=== PATIENT | female | born 1950 | race Caucasian/White ===

== ENCOUNTER 2020-06-08 10:41 | Outpatient (CLI) | payer MEDICARE, MEDICAID, SELFPAY ==
--- NOTE | 2020-06-08 10:50 | CT_ITS ---
WS: [id number] LDCT LUNG CANCER SCREENING TECHNIQUE: Noncontrast CT of the chest with coronal and sagittal reformatted images. CLINICAL INFORMATION: NICOTINE DEPENDENCE,CIGARETTES COMPARISON: None. DLP: 78.16 mGy.cm DIvol: 2.[address] scans at [facility] use at least one of these dose optimization techniques: automat ed exposure control; mA and/or kV adjustment per patient size (includes targeted exams where dose is matched to clinical indication); or iterative reconstruction. FINDINGS: Mild chronic emphysematous changes. No acute pulmonary infiltrates. Coronary calcification. No medias tinal or hilar lymphadenopathy. No suspicious pulmonary parenchymal opacities. Calcific granulomas. No axillary lymphadenopathy. Aort ic vascular calcification. Adrenal glands are normal. Cholecystectomy clips. Mild thoracic kyphosis. Chronic anterior wedging in the mid thoracic spine. CT/CT lung screening [id number] IMPRESSION: LUNG-RADS: 1-Negative FOLLOW UP: 12 Month: Continue annual screening with LDCT
== END 2020-06-08 10:42 | disposition home or self-care (01) ==
LOC: CT 10:42
PROVIDERS: PCP Family Medicine; Visit Provider Family Medicine
DX: Z12.2 Encounter for screening for malignant neoplasm of respiratory organs (principal); F17.210 Nicotine dependence, cigarettes, uncomplicated
CPT/HCPCS: G0297

== ENCOUNTER 2020-07-19 09:40 | Outpatient (CLI) | payer MEDICARE, MEDICAID, SELFPAY ==
--- NOTE | 2020-07-19 09:46 | MM_ITS ---
WS: [id number] BILATERAL SCREENING DIGITAL MAMMOGRAM WITH CAD HISTORY: SCREENING COMPARISON: 06/07/2019, 05/20/2018 Bilateral CC and MLO views submitted. Computer aided detection analyzed. Breast composition: The breasts are heterogeneously dense, which may obscure small masses. No suspici ous masses, microcalcifications or architectural distortion. Asymmetric densities noted bilaterally w ith benign stable calcifications. MM/[id number] IMPRESSION: BI-RADS: 2-Benign FOLLOW UP: 1 Year Follow-up
== END 2020-07-19 09:41 | disposition home or self-care (01) ==
LOC: RADSHAW 09:45
PROVIDERS: PCP Family Medicine; Visit Provider Family Medicine
DX: Z12.31 Encounter for screening mammogram for malignant neoplasm of breast (principal)
CPT/HCPCS: 77067

== ENCOUNTER 2021-07-08 09:07 | Outpatient (CLI) | payer MEDICARE, MEDICAID, SELFPAY ==
--- NOTE | 2021-07-08 09:16 | CT_ITS ---
WS: [id number] LDCT LUNG CANCER SCREENING HISTORY: NICOTINE Dependence, cigarettes TECHNIQUE: Axial imaging performed from the apices to 1 cm below the costophrenic angles. Coronal and sagittal reformats are submitted with axial MIP series. All CT scans at [facility] use at least one of these dose optimization techniques: automated exposure control; mA and/or kV adjustment per patient size (includes targeted exams where dose is matched to clinical indication); or iterativ e reconstruction. DLP: 46.67 mGy.cm DIvol: 1.58 mGy COMPARISON: 06/08/2020 Diagnostic quality: Satisfactory Lung Nodules: Ill-defined soft tissue mass centered within the LEFT upper lobe extending into the AP window. Mass measures over length of 4.8 cm x 3.6 x 3.8 cm. Due to its position of the mediastinum th e margins are very difficult to visualize. Mass extends along the aorta with partial obliteration of the adjacent fat plane. Lungs: Marked emphysema. Bilateral lower lobe calcified granulomata. Heart: Mildly enlarged heart with coronary artery calcifications. Other findings: Extensive atherosclerosis aorta. No adrenal mass is visualized. The entire adrenal gl ands are not included. Splenic granulomata. Increase in thoracic kyphosis. CT/CT lung screening [id number] IMPRESSION: LUNG-RADS: 4B-Suspicious FOLLOW UP: PET/CT recommended Highly recommend PET/CT and contrast-enhanced chest CT at this time. There is a mass centered in the LEFT upper lobe at the AP window. Margins are difficult t o visualize and further evaluation and characterization and evaluation for lym ph nodes should be obtained. OTHER FINDINGS (S MODIFIER): None.
== END 2021-07-08 09:08 | disposition home or self-care (01) ==
LOC: CT 09:08
PROVIDERS: PCP Family Medicine; Visit Provider Family Medicine
DX: Z12.2 Encounter for screening for malignant neoplasm of respiratory organs (principal); F17.210 Nicotine dependence, cigarettes, uncomplicated; I70.0 Atherosclerosis of aorta
CPT/HCPCS: 71271

== ENCOUNTER → 2021-07-11 16:20 | Outpatient (BNVA) | payer MEDICARE, MEDICAID, SELFPAY | PROVIDERS: PCP Family Medicine; Visit Provider Internal Medicine Critical Care Medicine | DX: Z20.822 Contact with and (suspected) exposure to COVID-19 (principal); R91.8 Other nonspecific abnormal finding of lung field | CPT/HCPCS: 87635 ==

== ENCOUNTER 2021-07-16 11:44 | Day surgery (SDC) | payer MEDICARE, MEDICAID, SELFPAY ==
[2021-07-16] VITALS (7 sets, daily range): BP systolic 137–173; BP diastolic 53–97; PULSE 67–75; RESP 18; TEMP 36.1–36.8; O2SAT 90–99; BMI 23.6
--- NOTE | 2021-07-16 | CT_ITS ---
Guided Bronchoscopy Planning CT images; total exam DLP: 627.71 mGy-cm MTDD
--- NOTE | 2021-07-16 12:32 | ANES.PREANE2 ---
Pre-Anesthetic Assessment Pre-Anesthetic Assessment: Height/Weight: Height 1.55 m Preop Diagnosis: Lung cancer Proposed Procedure: Operation Date: 07/16/21 13:10 Proposed Procedures melissa Castillo [id number] R91.1(Not Applicable) - Walt Aranda MD s Ebus(Not Applicable) - Walt Aranda MD Familial anesthetic complications: None Was Beta Turner taken within 24 hours: N/A Was Clonidine taken within 24 hours: N/A Last intake: > 8hrs Social: Social History: Tobacco and No alcohol Exam: Pre-Anes Outpt Exam: alert, oriented x 3, clear to auscultation bilaterally and regular rate & rhythm Airway: Cervical ROM: WNL MP: 2 Dentition: False Pulmonary: Pulmonary: COPD GI: GI: GERD Metabolic: Metabolic: Hyperlipidemia Anesthetic Plan: ASA status: 3 Anesthesia: General Risk of > 500 ml blood loss (7ml/kg in children): No PFSH Anesthesia PFSH: Medical History (Updated 07/11/21 @ 16:22 by Walt Aranda MD) COPD (chronic obstructive pulmonary disease) Fibromyalgia GERD (gastroesophageal reflux disease) Hypercholesteremia Lung mass Nicotine dependence, cigarettes, uncomplicated Overactive bladder Surgical History (Updated 07/11/21 @ 16:17 by Walt Aranda MD) H/O lumpectomy History of cholecystectomy History of hysterectomy Hx of tonsillectomy Family History Brother Cancer Lung Mother Hypertension Father Heart disease Social History Smoking and tobacco status: current every day smoker cigarettes Packs smoked per day: 1 Years cigarettes smoked: 50 Second hand smoke exposure: Yes Smoking risk assessment/counseling performed?: No Alcohol intake: current Alcohol intake frequency: holidays/special occasions only Counseling given: No Counseling given: No Lives independently: Yes Household members: none Marital status: Current occupational status: retired History of recent travel: No Current gender identity: Female Data Anesthesia Cardiac Studies: No Data to Display
[2021-07-16] MEDS: sodium chloride 0.9% 1,000 ML 30 ML IV (12:47)
--- NOTE | 2021-07-16 13:33 | W.PM.OPSUD ---
Surgery/Procedure H&P Update DATE OF PROCEDURE: July 16, 2021 DATE H&P PERFORMED: 07/11/21 H&P UPDATE INFORMATION: I have reviewed H&P completed within last 30 days, I have examined patient prior to procedure and No changes to prior documentation PREOP DIAGNOSIS: Lung cancer PLANNED PROCEDURE: Bronchoscopy with inspection of the airway, possible endobronchial biopsy, bronchoalveolar lavage, Cytobrush, navigational bronchoscopy guided fine needle aspiration of the lung mass, Cytobrush, endobronchial transbronchial biopsies, endobronchial sound guided transbronchial needle aspiration of lymph nodes and control of bleeding. Operation Date: 07/16/21 13:10 Proposed Procedures p [place] [id number] R91.1(Not Applicable) - Walt Aranda MD s Ebus(Not Applicable) - Walt Aranda MD
[2021-07-16] MEDS: lidocaine 1% INJ 20 mL XX (13:50)
--- NOTE | 2021-07-16 15:34 | ANE.PACU2 ---
Inpatient post-anesthesia follow up: Airway intact: Yes Vital signs: Temperature 97.0 F Pulse Rate 72 Respiratory Rate 18 Blood Pressure 137/56 Pulse Oximetry 90 Oxygen Delivery Me thod Room Air Oxygen Flow Rate 10 Fraction of Inspir ed Oxygen Hydration adequate: Yes Nausea and vomiting: No Pain level: 2 Mental status: Baseline
--- NOTE | 2021-07-16 15:36 | P.OP_ITS ---
Operative Report Date of procedure: July 16, 2021 Pre-op Diagnosis: Lung cancer Post-op diagnosis: same Brief History: This is 71-year-old lady with metastatic lung mass coming in for bronchoscopic evaluation. Procedure: Name of the procedure: Bronchoscopy with inspection of the airway, possible bronchoalveolar lavage, endobronchial biopsies, transbronchial biopsies, endobronchial ultrasound-guided transbronchial needle aspiration of lymph nodes and control of bleeding. Indication: Suspected lung cancer Anesthesia: General anesthesia. Local anesthesia: The nick in the right and left mainstem bronchi were anesthetized with 1% lidocaine, 3 mL. Description of the procedure: The procedure was explained to the patient and the consent was obtained. The patient was brought to the OR. The patient underwent endotracheal intubation for general anesthesia. Following induction of general anesthesia, the bronchoscope was advanced through the ET tube. The lower trachea appeared to be normal. The nick was sharp. The nick, the right and left mainstem bronchi are anesthetized with 1% lidocaine. In a systematic manner bilateral bronchial tree was then examined. The bronchoscope was advanced into the left mainstem bronchus. The left upper lobe, lingula and left lower lobe bronchi were examined up to the third subsegmental level and no abnormalities were identified. The bronchoscope was then introduced into the right mainstem bronchus. The right upper lobe, right middle lobe and right lower lobe bronchi were examined up to the third subsegmental level and no abnormalities were identified. Using navigational bronchoscopy fine-needle aspiration was attempted from the left mediastinal lung mass however this was unsuccessful. The endobronchial ultrasound was introduced through the ET tube. Left hilar lung mass was identified. The mass appeared necrotic. The subcarinal lymph node appeared to be enlarged. There is no significant paratracheal lymph adenopathy Transbronchial needle aspiration was performed from station 4R, 7, left hilar lung mass. Samples: 1. The transbronchial needle aspiration of the aforementioned lymph node groups were sent for cytology and histopathology. Complications: There was no immediate complications.
== END 2021-07-16 16:05 | disposition home or self-care (01) ==
PROVIDERS: PCP Family Medicine; Visit Provider Internal Medicine Critical Care Medicine
PROC: 0BJ08ZZ Inspection of Tracheobronchial Tree, Via Natural or Artificial Opening Endoscopic (ICD-10-PCS; CPT 31622; principal; 2021-07-16 13:00)
PROC: BB4BZZZ Ultrasonography of Pleura (ICD-10-PCS; 2021-07-16 13:00)
DX: C34.90 Malignant neoplasm of unspecified part of unspecified bronchus or lung (principal); J44.9 Chronic obstructive pulmonary disease, unspecified; K21.9 Gastro-esophageal reflux disease without esophagitis; E78.5 Hyperlipidemia, unspecified; M79.7 Fibromyalgia; E78.00 Pure hypercholesterolemia, unspecified; F17.210 Nicotine dependence, cigarettes, uncomplicated
CPT/HCPCS: 31622; 31627; 31653; 77011; 80500; 88305; 96360; 96361; J2704; J2710; J3010; J3490; J7030

== ENCOUNTER 2021-07-22 09:07 | Outpatient (CLI) | payer MEDICARE, MEDICAID, SELFPAY ==
--- NOTE | 2021-07-22 09:13 | MM_ITS ---
WS: [id number] BILATERAL DIGITAL SCREENING MAMMOGRAPHY WITH CAD CLINICAL INFORMATION: SCREENING HISTORY: Screening mammogram. No current complaints. COMPARISON: July 19, 2020 TECHNIQUE: Bilateral CC and MLO views. FINDINGS: The breasts are composed of heterogeneous fibroglandular density tissue, which can limit the detectio n of small underlying mass lesions. Stable clustered, punctate and lucent centered calcifications jannette ateral breasts. Dystrophic calcifications left breast are stable. Vascular calcification. No suspicio us mass, asymmetry, calcifications, or architectural distortion. No evidence of malignancy. MM/[id number] IMPRESSION: BI-RADS: 2-Benign FOLLOW UP: 1 Year Follow-up Recommend return to annual screening mammography.
== END 2021-07-22 09:08 | disposition home or self-care (01) ==
LOC: RADSHAW 09:12
PROVIDERS: PCP Family Medicine; Visit Provider Family Medicine
DX: Z12.31 Encounter for screening mammogram for malignant neoplasm of breast (principal)
CPT/HCPCS: 77067

== ENCOUNTER → 2021-09-04 10:21 | Outpatient (BNVA) | payer MEDICARE, MEDICAID, SELFPAY | PROVIDERS: PCP Family Medicine; Visit Provider Thoracic Surgery (Cardiothoracic Vascular Surgery) | DX: Z20.822 Contact with and (suspected) exposure to COVID-19 (principal); R91.8 Other nonspecific abnormal finding of lung field | CPT/HCPCS: 87635 ==

== ENCOUNTER 2021-09-09 12:45 | Inpatient (IN) | payer MEDICARE, MEDICAID, SELFPAY ==
--- NOTE | 2021-09-04 08:37 | ECG_ITS ---
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 Measurements Intervals [place] Rate: 64 P: 61 KS: 163 QRS: 32 QRSD: 81 T: 69 QT: 419 QTc: 433 Interpretive Statements SINUS RHYTHM WITH SINUS ARRHYTHMIA POSSIBLE INFERIOR MYOCARDIAL INFARCTION , OF INDETERMINATE AGE [30 ms Q WAVE IN II/aVF] No previous ECG available for comparison Electronically Signed On 09-05-2021 1:27:01 CDT by Xuan Child M.D. [id number]
[2021-09-04 08:40] VITALS: BMI 23.6
--- NOTE | 2021-09-04 09:13 | ANES.PREANE2 ---
Pre-Anesthetic Assessment Pre-Anesthetic Assessment: Height/Weight: Height 1.55 m Weight 56.699 kg Preop Diagnosis: Lung cancer Proposed Procedure: Operation Date: 09/09/21 13:25 Proposed Procedures p [place] Mediastinoscopy(Not Applicable) - Wallace Lugo MD Was Beta Turner taken within 24 hours: N/A Was Clonidine taken within 24 hours: N/A Social: Social History: Tobacco and No alcohol Exam: Pre-Anes Outpt Exam: alert, oriented x 3 and regular rate & rhythm Additional Exam Findings (including area of procedure): rhonchi Airway: Submandibular: WNL Cervical ROM: WNL MP: 2 Dentition: False Pulmonary: Pulmonary: COPD Comments: lung mass CV/HEM: CV/HEM: HTN GI: GI: GERD Metabolic: Metabolic: Hyperlipidemia Musc/skel: Musc/skel: Fibromyalgia Anesthetic Plan: ASA status: 3 Anesthesia: General Other: A.line Risk of > 500 ml blood loss (7ml/kg in children): No PFSH Anesthesia PFSH: Medical History COPD (chronic obstructive pulmonary disease) Fibromyalgia GERD (gastroesophageal reflux disease) Hypercholesteremia Lung mass Nicotine dependence, cigarettes, uncomplicated Overactive bladder Surgical History H/O lumpectomy History of cholecystectomy History of hysterectomy Hx of tonsillectomy Family History Brother Cancer Lung Mother Hypertension Father Heart disease Social History Second hand smoke exposure: Yes Smoking risk assessment/counseling performed?: No Alcohol intake: current Alcohol intake frequency: holidays/special occasions only Counseling given: No Counseling given: No Lives independently: Yes Household members: none Marital status: Current occupational status: retired History of recent travel: No Current gender identity: Female Data Anesthesia Cardiac Studies: No Data to Display
[2021-09-04 09:19] LABS: Add Urine Microscopic? NO; Charge for UA Resulting for Rev
[2021-09-04 09:21] LABS: Basophils # 0.1 10^3/uL (0.0-0.1); Basophils % 0.7 %; Eosinophils # 0.4 10^3/uL (0.0-0.8); Eosinophils % 5.3 %; Hematocrit 45.7 % (37.0-47.0); Hemoglobin 14.7 g/dL (11.5-15.3); Mean Corpuscular HGB Conc 32.2 g/dL (30.0-36.0); Mean Corpuscular Hemoglobin 29.1 pg (28.0-34.0); Mean Corpuscular Volume 90.5 fl (81-99); Monocytes # 0.5 10^3/uL (0.2-0.9); Monocytes % 5.6 %; Neutrophils # 5.24 10^3/uL (1.8-7.7); Neutrophils % 64.2 %; Nucleated Red Blood Cells % 0 %; Platelet Count 326 10^3/cmm (130-400); Red Blood Count 5.05 10^6/uL (4.1-5.3); White Blood Count 8.2 10^3/uL (4.0-10.0)
[2021-09-04 09:56] LABS: Bilirubin Urine Neg (Negative); Blood Urine Neg (Negative); Glucose Urine UA Norm (Normal); Ketones Urine Negative (Negative); Leukocyte Esterase Urine Negative (Negative); Nitrate Urine Negative (Negative); Protein Urine Neg (Negative); Specific Gravity, Urine 1.005 (1.005-1.030); Urine Appearance Clear (CLEAR); Urine Color Straw (Yellow); Urobilinogen Urine Norm (Negative); pH Urine 6 (5-7)
[2021-09-04 09:59] LABS: Anion Gap 14.9 (5-19); Blood Urea Nitrogen 8 mg/dL (8-23); Calcium 9.3 mg/dL (8.5-10.5); Carbon Dioxide 26 mmol/L (22-29); Chloride 106 mmol/L (98-107); Glomerular Filtration Rate 98.8 mL/min (90-130); Glucose 99 mg/dL (65-115); Osmolality Calculated 294 mOsm/kg (285-295); Potassium 3.9 mmol/L (3.5-5.1); Sodium 143 mmol/L (136-145)
[2021-09-09] VITALS (23 sets, daily range): BP systolic 117–191; BP diastolic 56–103; PULSE 67–107; RESP 16–24; TEMP 36.6–36.8; O2SAT 93–98
[2021-09-09] MEDS: sodium chloride 0.9% 1,000 ML 30 ML IV (12:57)
--- NOTE | 2021-09-09 13:17 | W.PM.OPSUD ---
Surgery/Procedure H&P Update DATE OF PROCEDURE: September 09, 2021 DATE H&P PERFORMED: 08/22/21 H&P UPDATE INFORMATION: I have reviewed H&P completed within last 30 days, I have examined patient prior to procedure and No changes to prior documentation PREOP DIAGNOSIS: Lung mass/ AP window mass PLANNED PROCEDURE: Operation Date: 09/09/21 14:35 Proposed Procedures p [place] Mediastinoscopy(Not Applicable) - Wallace Lugo MD
--- NOTE | 2021-09-09 13:34 | P.ANESUD_ITS ---
Pre-Anesthetic Update Pre-Anesthetic Assessment: Date of Surgery/Procedure: 09/09/21 Preop Deborah gnosis: Lung mass/ AP window mass Proposed Procedure: Operation Date: 09/09/21 14:35 Proposed Procedures p [place] Mediastinoscopy(Not Applicable) - Wallace Lugo MD Any changes to Pre-Anesthetic Assessment?: No Last Intake: Intake Last Liquid Date 09/09/21 Last Liquid Time 08:00 Last Solid Date 09/08/21 Vitals: Temperature 98.3 F 09/09/21 12:49 Pulse Rate 72 09/09/21 12:49 Respiratory Rate 18 09/09/21 12:49 Blood Pressure 157/88 09/09/21 12:49 Blood Pressure Lidia n 111 09/09/21 12:49 Pulse Oximetry 98 09/09/21 12:49 Oxygen Delivery Me thod 09/09/21 12:50 Exam: Pre-Anes Outpt Exam: alert, oriented x 3, clear to auscultation bilaterally and regular rate & rhythm Cardiac Studies: No Data to Display
[2021-09-09] MEDS: vancomycin 1,000 MG SDV 1000 MG IRRIGATION (14:45)
[2021-09-09] MEDS: fentaNYL 50 mcg/mL INJ 2mL IVP (16:10)
--- NOTE | 2021-09-09 16:19 | P.OP_ITS ---
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 Condition: stable Disposition: floor Brief History: Ms. Alfaro is a 71-year-old female referred to our service for surgical biopsy of the left AP window mass. She has a long history for tobacco use. This mass was originally notified on lung cancer screening protocol. She initially underwent endoscopy along with navigational bronchoscopy and EBUS by Dr. Aranda, though unfortunately pathology was inconclusive. She was then referred to our service where I recommended a left-sided [place] procedure. Rationale was carefully discussed. Proper consents were reviewed and signed. Procedure: Ms. Alfaro was placed in supine position and underwent general endotracheal anesthesia. The entire chest was sterilely prepped and draped. A left parasternal incision was made extending over the second and third ribs at the intercostal junction with the sternum. Dissection was continued down through the to the perichondrium of the ribs. The third rib was dissected free anteriorly and posteriorly at this junction. The rib was subsequently divided and a small section anteriorly was removed. The left internal mammary artery and vein were dissected free and clipped and divided and removed from the field. Sharp and blunt dissection was carried down through periaortic adipose tissue until the mass was encountered. There were adhesions of the lung tissue over much of the mass along with encroachment onto the left phrenic nerve. It was aspirated several times and then multiple incisional biopsies were taken. These were sent to pathology for both frozen and permanent section. Hemostasis was then confirmed using cautery and Surgicel. Once completed, retractors were removed. Sponge and needle count was correct. Wound was closed with 2-0 Vicryl suture in 2 layers and the skin was reapproximated in a subcuticular fashion utilizing 4-0 Monocryl suture. Sterile dressings were applied. Dominic has equal breath sounds bilaterally and was extubated and taken to the postoperative care unit where a chest x-ray is pending. We counseled with a family friend by phone at the completion of the procedure. Initial pathologic impression upon review of frozen section consistent with malignancy though this does appear to have characteristics which may favor sarcoma. Further diagnostic evaluation pending.
[2021-09-09] MEDS: morphine 4 mg/mL SDV 1 mL 2 MG IVP ×3 (16:24→19:01)
[2021-09-09] MEDS: ondansetron 2 mg/ML SDV 2 mL 4 MG IVP (17:04)
[2021-09-09] MEDS: lactated ringers 1,000 ML 75 ML IV (18:47)
[2021-09-09] MEDS: ketorolac 30 mg/mL INJ IVP (18:48)
--- NOTE | 2021-09-09 18:54 | ANE.PACU2 ---
Inpatient post-anesthesia follow up: Airway intact: Yes Vital signs: Temperature 97.8 F Pulse Rate 75 Respiratory Rate 18 Blood Pressure 145/72 Pulse Oximetry 94 Oxygen Delivery Me thod Nasal Cannula Oxygen Flow Rate 2 Fraction of Inspir ed Oxygen Hydration adequate: Yes Nausea and vomiting: No Pain level: 2 Mental status: Baseline
--- NOTE | 2021-09-09 19:04 | PC.NURSE ---
notified Dr Lugo patient has blood pressure of 191/103 and anxiety. card writer hand put orders in.
[2021-09-09] MEDS: LORazepam 2 mg/mL INJ 1 mL 1 MG IVP (20:14)
[2021-09-10] VITALS (7 sets, daily range): BP systolic 127–161; BP diastolic 69–79; PULSE 68–89; RESP 15–17; TEMP 36.6–37.2; O2SAT 86–96
[2021-09-10] MEDS: ketorolac 30 mg/mL INJ IVP (05:52)
[2021-09-10] MEDS: lactated ringers 1,000 ML 75 ML IV (05:53)
--- NOTE | 2021-09-10 06:27 | P.PN_ITS ---
Subjective Subjective: Interval history: Stop day #1 status post left-sided [place] procedure. Ms. Alfaro had an uneventful night. Postoperative discomfort appears to be under good control. She is eager for discharge. Vitals/I&O/Wt Last Vital Signs Temp 97.9 F 09/10/21 05:00 Pulse 73 09/10/21 05:00 Resp 15 09/10/21 05:00 BP 158/79 09/10/21 05:00 Pulse Ox 95 09/10/21 05:00 09/09/21 09/09/21 09/10/21 14:59 22:59 06:59 Intake Total 60 / 60 1043.5 / 1103.5 Output Total 375 / 375 550 / 925 Balance -315 / -315 493.5 / 178.5 Physical Exam Chest: COMMONS NORMALS: normal palpation of entire chest wall OTHER: Swell stable. Surgical dressing in place. Resp: COMMON NORMALS: normal respiratory effort, No use of accessory muscles and clear to auscultation bilaterally AUSCULTATION: clear to auscultation jannette aterally Cardio: COMMON NORMALS: regular rate, regular rhythm, S1 normal heart sound present, No murmurs present (Cardio) and No rub (Cardio) RATE: regular rate RHYTHM: regular rhythm HEART SOUNDS: S1 normal heart sound present Data : 09/04/21 08:50 09/04/21 08:50 A&P Assessment and plan (1) Lung mass: POD #1 status post left-sided [place] procedure. Final pathology pen ding. Preliminary report is consistent with malignancy Plan: Will discharge to home with scheduled follow-up at [facility] 1 week. 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
--- NOTE | 2021-09-10 06:34 | PM.DCS ---
Discharge Providers Date of Admission: 09/09/21 12:45 Date of Discharge: September 10, 2021 Attending Provider at Admission: Wallace Lugo MD Attending Provider at Discharge: Wallace Lugo MD Primary Care Provider: Ash Portillo MD Diagnoses at Discharge Discharge Diagnosis (1) Lung mass: Status: Acute Reason for Visit Reason for Visit: Lung Mass Hospital Course Hospital Course Ms. Alfaro is a very pleasant 71-year-old female who was found to have a large AP window mass and mediastinal and left hilar adenopathy on lung CT screening protocol. He was evaluated by Dr. Aranda, and underwent bronchoscopy along with a EBUS and navigational bronchoscopy. Pathology was uncertain as to malignancy, therefore she was referred to our service. She was electively admitted yesterday and underwent left sided [place] procedure and biopsy of the AP window mass. Final pathology is pending. Frozen section reported is consistent with malignancy though the exact cell type is uncertain and may be sarcomatous. Postoperatively, she convalesced on the medical/surgical [place] where she has done well. Postop discomfort has been under good control. Vital signs remained stable. She did fail a 6-minute walk test and therefore qualifies for home O2 at 2 L nasal cannula. She does have some mild wheezing. Subcutaneous emphysema was noted on morning chest x-ray and follow-up x-ray at 12 noon reveals no change. This is most probably related to biopsy of the AP window mass which was done intrathoracic leak through a [place] procedure. She will be discharged to home today in stable condition with scheduled follow-up in my clinic in 1 week and with limited activity for the next 3 weeks. We will be contacting her at home this evening to confirm that home oxygen has been established that her O2 saturations are adequate. She states she will be receiving a nebulizer treatment at home. We will confirm that she is having no breathing difficulties. Physical Exam Chest: COMMONS NORMALS: negative for normal palpation of entire chest wall CHEST: Yes Symmetrical chest wall rise OTHER: There is a small amount of subcutaneous emphysema noted on the anterior lateral chest wall as well as base of the right neck. Chest x-ray at 7:15 AM revealed complete lung expansion bilaterally with percutaneous emphysema at the base of the right neck as well as the left chest wall. She is asymptomatic from this. Mild dyspnea which she states is frequently baseline. Resp: COMMON NORMALS: normal respiratory effort, No retractions, No use of accessory muscles and clear to auscultation bilaterally (There is a light basilar wheeze posteriorly on the left) EFFORT & INSPECTION: Yes able to speak in complete sentences and Yes symmetric chest movement AUSCULTATION: clear to auscultation bilaterally (There is a light basilar wheeze posteriorly on the left) and wheezes (Light, posteriorly on the left) expiratory wheezes Cardio: COMMON NORMALS: regular rate, regular rhythm, S1 normal heart sound present, No murmurs present (Cardio) and No rub (Cardio) RATE: regular rate RHYTHM: regular rhythm HEART SOUNDS: S1 normal heart sound present Extremity: COMMON NORMALS: no clubbing, cyanosis or edema Discharge Data Data Completed and Pending: Pending at discharge Category Date Time Status Leukocyte Reduced RBC Routine Lab 09/04/21 08:50 Results Miscellaneous Melissa t Routine Lab 09/09/21 15:40 Received Type and Screen - Cardiac Routine Lab 09/04/21 08:50 Results Pathology: Surgic al [PTH] Routine Pth 09/09/21 15:53 Received Labs from last 24 hours 09/09/21 09/04/21 15:40 08:50 Misc Test Referenc e Pending Blood Type A Positive Rho(D) Type Positive Antibody Screen Negative Crossmatch See Detail Vitals: Last Vital Signs Temp 97.9 F 09/10/21 05:00 Pulse 73 09/10/21 05:00 Resp 15 09/10/21 05:00 BP 158/79 09/10/21 05:00 Pulse Ox 95 09/10/21 05:00 Discharge Plan Discharge Patient Disposition: Home Condition: Stable Prescriptions: New hydrocodone-acetaminophen 5-325 mg Tablet 1 tab PO Q6H PRN (Reason: Moderate Pain) Qty: 16 RF: 0 Continued lovastatin 20 mg tablet 20 mg PO DAILY RF: 0 Breo Ellipta 100-25 mcg/dose blister with device 1 inh inhalation DAILY RF: 0 Spiriva with HandiHaler 18 mcg capsule, w/inhalation device 1 cap inhalation DAILY RF: 0 omeprazole 40 mg capsule,delayed release(DR/EC) 40 mg PO DAILY RF: 0 Myrbetriq 25 mg tablet extended release 24 hr 25 mg PO DAILY RF: 0 cholecalciferol (vitamin D3) 50 mcg (2,000 unit) capsule 50 mcg PO DAILY RF: 0 loratadine [Allergy Relief (loratadine)] 10 mg tablet 10 mg PO DAILY RF: 0 Discharge Orders: Discharge Order (Routine); Ordered 09/10/21 Ordered By: Wallace Lugo Other Ambulatory Orders: DME: Oxygen (Order) Location: None Selected Ordered By: Wallace Lugo Referrals: Wallace Lugo MD [Physician] - 09/19/21 9:45 am Discharge Diet: Usual diet Discharge Activity: Limit activity as instructed and Oxygen as instructed Patient Instructions: Hydrocodone/Acetaminophen (By mouth), Mediastinoscopy (DC), Opioid Safety Activity Restrictions/Additional Instructions: May remove bandage in 2 days May clean incision and recover as desired. Expect local swelling for the next 3 to 4 weeks. If subcutaneous emphysema worsens, or develops worsening shortness of breath, she is to report to the emergency department May begin daily showers in 3 days No swimming or tub baths x 2 weeks No ointments on incision Report drainage, redness, heat, increased pain, fever, or swelling to clinic No heavy lifting or pulling x3 weeks. Home O2 has been established at 2 L nasal cannula to include home concentrator and portable unit. Discharge Attestations Time Spent in Discharge Care*: less than 30 min Specific Discharge Activities: educating patient, discussing with rn field case manager/social workers/dc planners, documenting/other paperwork and evaluating patient/reviewing data Time Spent in Smoking Cessation: 3 to 10 minutes Quality Metrics Clinical Quality Measures During this hospital stay, did patient experience: None Coding Level of Care Code Acute Chg FW DC note Exam Expanded Problem Focused Diagnoses Lung mass R91.8
--- NOTE | 2021-09-10 06:38 | XRR_ITS ---
PROCEDURE INFORMATION: Exam: XR Chest Exam date and time: 09/10/2021 6:38 AM Age: 71 years old Clinical indication: Condition or disease; Other: Lung mass; Prior surgery; Surgery date: Post-operative (0-2 days); Surgery type: S/P chamberlain procedure for ap window mass biopsy TECHNIQUE: Imaging protocol: XR of the chest. Views: 1 view. COMPARISON: [facility] Chest 2 views 08/14/2016 10:07 AM FINDINGS: Lungs: There is left basilar consolidation and atelectasis. The right lung is clear. Pleural spaces: Unremarkable. No pleural effusion. No pneumothorax. Heart/Mediastinum: There is a poorly defined mass along the superior mediastinum on the left side corresponding to the abnormality seen on recent CT scan. Bones/joints: Unremarkable. Soft tissues: There is subcutaneous emphysema around the chest and neck especially on the left side. XR/XR chest 1V portable [id number] IMPRESSION: Postsurgical radiograph of the abdomen shows left basilar consolidation and atelectasis. No pneumothorax. Radiation Dose CTDIVOL = (mGy): DLP = (mGy-cm)
--- NOTE | 2021-09-10 07:33 | PC.NURSE ---
Dr. Lugo at bedside. Verbal orders (read back) to hold pt's d/c at this time d/t subcutaneous emphysema seen on AM CXR and to also place pt on 2LNC. Orders explained to pt, O2 placed and questions answered, pt verbalized understanding.
--- NOTE | 2021-09-10 09:39 | PC.CHAP ---
Pastoral Care Encounter/Spiritual Assessment Type of Contact [] Declined breeding manager visit [] Patient/Family/Request visit [] Outpatient visit [] Follow-up visit [] Physician referral [] Code/Alert [x] Routine visit [] Staff referral [] Actively dying [] Patient sleeping [] Family support [] [] Out of room [] Palliative care [] [] Receiving care in room [] Pre-surgical visit [] Trauma [] Long length of stay [] ICU visit [] Other: Relational/Emotional Strength [x] Patient feels connected with others/family/visitors/staff [] Distress [] Loneliness/isolation [] Abandonment Spirituality of Patient [x] Person of [place] [x] Attends Latter Day of their [place] [x] Believes in Prayer [] Reads Bible or Latter-Day materials [] There are Spiritual issues to be addressed Asphalt Tamping 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 Operator Interventions [] Prayer [x] Active listening [x] Non-anxious presence [x] Spiritual/emotional support [] Crisis/trauma care [] Spiritual counseling [] Bereavement support [] Provided bereavement packet [] Provided Bible/devotional materials [] Provided toy/stuffed animal, coloring book to patient or family member [] Provided Communion [] Anointing/[place] [] Salvation [x] Completed spiritual assessment [] Other: Impact on Illness or Injury [] Angry [] Fearful [] Anxious [] Often cries [] Exhaustion [] Unable to work [] Unable to attend jew [] Unable to walk/stand [] Unable to read [] Unable to drive [] Unable to eat/drink [] Unable to sleep [] Unable to be with family [] Patient intubated [] Other: Summary Pt indicated the doctors are still trying to determine what is wrong and develop a treatment plan. As breeding manager was speaking with her, a young man came into the room carrying a bag of clothing. Pt was immediately happy to see him. They explained they are co-workers but he described Pt as his best friend. Time spent with patient 5m
[2021-09-10] MEDS: atorvastatin 40 mg Tablet 20 MG PO (09:52)
[2021-09-10] MEDS: pantoprazole DR 40 mg Tablet PO (09:52)
[2021-09-10] MEDS: loratadine 10 mg Tablet PO (09:52)
--- NOTE | 2021-09-10 11:30 | XRR_ITS ---
PROCEDURE INFORMATION: Exam: XR Chest Exam date and time: 09/10/2021 11:30 AM Age: 71 years old Clinical indication: Device placement; Other: Subcue emphysema S/P mass biopsy; Prior surgery; Surgery date: Post-operative (0-2 days); Additional info: F/u for subcue emphysema S/P mass biopsy TECHNIQUE: Imaging protocol: XR of the chest. Views: 1 view. COMPARISON: [facility] XR chest 1V portable [id number] 09/10/2021 6:48 AM FINDINGS: Lungs: There is left basilar consolidation and atelectasis which is stable. The right lung is clear. There is a poorly defined mass in the left upper lobe along the mediastinum. Pleural spaces: Unremarkable. No pleural effusion. No pneumothorax. Heart/Mediastinum: See Lungs finding. Bones/joints: Unremarkable. Soft tissues: There is subcutaneous emphysema around the neck and chest especially on the left side. XR/XR chest 1V portable [id number] IMPRESSION: Stable chest. The left basilar atelectasis and consolidation along with the subcutaneous emphysema are essentially unchanged. Radiation Dose CTDIVOL = (mGy): DLP = (mGy-cm)
--- NOTE | 2021-09-10 12:13 | P.PN_ITS ---
Subjective Subjective: Interval history: 1130 chest x-ray revealed the subcutaneous emphysema is about the same as compared to the 630 x-ray this morning. Exam is consistent with this. We did do a home O2 evaluation as we noted that she stated she was quite a bit more comfortable on 2 L nasal cannula which we were using as a nitrogen washout. Indeed, she did dip to 86% with a 6-minute walk t est and therefore qualifies for home oxygen 2 L nasal cannula. This request has been placed with durable medical goods. Vitals/I&O/Wt Last Vital Signs Temp 98.9 F 09/10/21 08:00 Pulse 89 09/10/21 08:00 Resp 15 09/10/21 08:00 BP 127/69 09/10/21 08:00 Pulse Ox 90 09/10/21 11:40 09/09/21 09/10/21 09/10/21 22:59 06:59 14:59 Intake Total 60 / 60 1043.5 / 1103.5 480 / 480 Output Total 375 / 375 550 / 925 Balance -315 / -315 493.5 / 178.5 480 / 480 Physical Exam Chest: COMMONS NORMALS: normal inspection of the chest; negative for normal palpation of entire chest wall OTHER: Subcutaneous emphysema remains mostly in the upper chest and to the left. Resp: COMMON NORMALS: normal respiratory effort and clear to auscultation bilaterally (Decreased in the bases, more so on the left than right.) AUSCULTATION: clear to auscultation bilaterally (Decreased in the bases, more so on the left than right.) Cardio: COMMON NORMALS: regular rate, regular rhythm and S1 normal heart sound present RATE: regular rate RHYTHM: regular rhythm HEART SOUNDS: S1 normal heart sound present Extremity: COMMON NORMALS: no clubbing, cyanosis or edema Data : 09/04/21 08:50 09/04/21 08:50 A&P Assessment and plan (1) Lung mass: POD #1 status post biopsy of mediastinal mass consistent with malignancy, further cell type pending. Subcutaneous emphysema, stable. Positive home O2 evaluation and walk test with O2 saturation of 86% Plan: We will place an order for home oxygen at 2 L including home concentrator and portable unit. Will hold discharge as we have confirmed that this Status: Acute Attestations Medical Necessity Statement*: Mediastinal and AP window mass positive for malignancy, cell type to be further classified. Postop subcutaneous emphysema stable. Awaiting availability of home oxygen concentrator and portable unit. Time Spent in Patient Care: 16 - 35 minutes Coding Level of Care Code Acute Seniour Insight Manager for Chg Fwd Diagnoses Lung mass R91.8
[2021-09-10 14:39] LABS: Miscellaneous Test See Scanned Lab Rpt
[2021-09-16 08:49] LABS: PD-L1 (Clone 22C3) by IHC BBPL See Report
== END 2021-09-10 17:00 | disposition home or self-care (01) | DRG 168 ==
LOC: MEDSURG 17:30
PROVIDERS: Admitting Provider Thoracic Surgery (Cardiothoracic Vascular Surgery); PCP Family Medicine; Visit Provider Thoracic Surgery (Cardiothoracic Vascular Surgery)
PROC: 07B70ZX Excision of Thorax Lymphatic, Open Approach, Diagnostic (ICD-10-PCS; principal; 2021-09-09 14:25)
DX: C34.92 Malignant neoplasm of unspecified part of left bronchus or lung (principal); F17.210 Nicotine dependence, cigarettes, uncomplicated; Z80.1 Family history of malignant neoplasm of trachea, bronchus and lung; J44.9 Chronic obstructive pulmonary disease, unspecified; M79.7 Fibromyalgia; K21.9 Gastro-esophageal reflux disease without esophagitis; E78.00 Pure hypercholesterolemia, unspecified; T81.82XA Emphysema (subcutaneous) resulting from a procedure, initial encounter; Z79.51 Long term (current) use of inhaled steroids
CPT/HCPCS: 36415; 71045; 80048; 81003; 85025; 86850; 86900; 86920; 88184; 88185; 88307; 88331; 88342; 93005; 96374; 96375; J0690; J1100; J1885; J2060; J2250; J2270; J2405; J2704; J3010; J3370; J3490; J7030

== ENCOUNTER 2021-09-24 08:02 | Outpatient (CLI) | payer MEDICARE, MEDICAID, SELFPAY ==
[2021-09-24 10:19] LABS: Basophils # 0.1 10^3/uL (0.0-0.1); Basophils % 0.5 %; Eosinophils # 0.5 10^3/uL (0.0-0.8); Eosinophils % 4.7 %; Hematocrit 44.8 % (37.0-47.0); Hemoglobin 14.3 g/dL (11.5-15.3); Lymphocytes # 2.5 10^3/uL (0.8-4.8); Lymphocytes % 25.7 %; Mean Corpuscular HGB Conc 31.9 g/dL (30.0-36.0); Mean Corpuscular Hemoglobin 28.9 pg (28.0-34.0); Mean Corpuscular Volume 90.7 fl (81-99); Mean Platelet Volume 9.6 fL (7.4-10.4); Monocytes # 0.5 10^3/uL (0.2-0.9); Monocytes % 5.5 %; Neutrophils # 6.19 10^3/uL (1.8-7.7); Neutrophils % 63.3 %; Nucleated Red Blood Cells % 0 %; Platelet Count 380 10^3/cmm (130-400); Red Blood Count 4.94 10^6/uL (4.1-5.3); White Blood Count 9.8 10^3/uL (4.0-10.0)
[2021-09-24 10:52] LABS: Alanine Aminotransferase 12 U/L (0-33); Albumin Level 4.2 g/dL (3.5-5.2); Alkaline Phosphatase 95 IU/L (35-105); Anion Gap 17.2 (5-19); Aspartate Amino Transferase 12 U/L (0-32); Blood Urea Nitrogen 6 mg/dL (8-23); Calcium 9.1 mg/dL (8.5-10.5); Carbon Dioxide 24 mmol/L (22-29); Chloride 101 mmol/L (98-107); Globulin 2.8 g/dL (1.3-4.6); Glomerular Filtration Rate 82.7 mL/min (90-130); Glucose 96 mg/dL (65-115); Osmolality Calculated 283 mOsm/kg (285-295); Potassium 4.2 mmol/L (3.5-5.1); Sodium 138 mmol/L (136-145); Total Bilirubin 0.3 mg/dL (0.15-1.2)
--- NOTE | 2021-09-29 20:31 | ONC CON_ITS ---
Dr. Sal New Patient Note Patient: Marbella Alfaro Unit #: [id number]: [id number] Dicatated By: Colt Sal M.D.Date of Visit: Sep 24, 2021 Onc MED New Patient/Consult Referring Physician: Dr. MINGO BERNARDO M.D. History of Present Illness: Ms. Marbella Alfaro, with longstanding history of smoking, underwent CT lung screening on July 08, 2021, which showed ill-defined soft tissue mass centered within left upper lobe extending into AP window, mass measured 4.8 x 3.6 x 3.8 cm, marked emphysema, bilateral lower lobe calcified granulomata, patient underwent CT PET scan on August 05, 2021 which showed mass identified involving left superior hilum/AP window area measuring up to 3.3 x 3.5 cm with SUV 27.7, no other abnormality seen Patient underwent bronchoscopy/EBUS but pathology was inconclusive, subsequently patient was referred to Dr. 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 Appetite is reasonable Past Medical History: Ms. Alfaro's medical history consists of chronic obstructive pulmonary disease, fibromyalgia, gastroesophageal reflux disease, hypercholesterolemia, and overactive bladder. Past Surgical History: Ms. Alfaro's surgical/procedural history consists of [place] procedure, cholecystectomy, hysterectomy, lumpectomy, tonsillectomy, covid vaccine #2 in 2020, and covid vaccine #1 in 2020. Medications: Breo Ellipta 1 Inhalation (of 100-25 mcg/inh) Aerosol Powder, Breath Activated Inhalation daily, Cholecalciferol 1 Capsule (of 50 mcg ) Oral daily, Loratadine 1 Tablet (of 10 mg) Oral daily, Lovastatin 1 Tablet (of 20 mg) Oral daily, Myrbetriq 1 Tablet (of 25 mg) Tablet SR 24 HR Oral daily, Omeprazole 1 Capsule (of 40 mg) Capsule Delayed Release Oral daily, Spiriva HandiHaler 1 Capsule (of 18 mcg) Inhalation daily Allergies: No Known Allergies. Social History: Ms. Alfaro is single. She is a daily smoker who has smoked 1.0 pack/day for 56 years. She is an active drinker. 2-3 mixed drinks a month. Family History: Ms. Alfaro's mother is : hypertension. Ms. Alfaro's father is : heart disease. Ms. Alfaro has 1 brother who is : lung cancer. Review Of Symptoms: Review of Systems is not available for this patient. Vital Signs: Performed on Sep 24, 2021 09:02: 0, 7, 23.43, 1.54 sq.m, 61 in, 95 % (LOW), 81 /min, 18 /min, 147/83 mm(hg) (HIGH), 99.0 F (HIGH), and 124 lbs (HIGH). Performance Status: 1 - No physically strenuous activity, but ambulatory and able to carry out light or sedentary work (e.g. office work, light house work). (ECOG) Physical Examination: ENMT - No mouth sores, no thrush, no jaundice, Respiratory - Poor air entry otherwise clear, Cardiovascular - Regular rate and rhythm of heart, Abdomen - Soft, bowel sounds present, Extremities - No visible edema. Lab/Imaging: Most recent lab results are not available for this patient. 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 Based on CT PET scan, it appears patient has stage IIIa disease but we will complete staging work-up with MRI scan of the brain, if negative,, as per pulmonology and cardiothoracic evaluation, based on patient's underlying lung condition e.g. severe emphysema and she is on home oxygen and still smoking 1 pack a day, is not a candidate for surgery so as per NCCN guidelines will consider combined chemoradiation with weekly carboplatin/Taxol on the other hand if MRI scan of the brain shows metastatic disease, we will consider upfront immunotherapy as high as PD-L1 score is more than 50% We will also request for Port-A-Cath placement and refer her to radiation oncology and obtain baseline CBC CMP Patient return to clinic after MRI scan of the head Signed By: Colt Sal M.D. <<Signature on File>>
== END 2021-09-24 08:03 | disposition home or self-care (01) ==
LOC: ONCMED 08:06
PROVIDERS: PCP Family Medicine; Visit Provider Internal Medicine Hematology & Oncology
DX: C34.02 Malignant neoplasm of left main bronchus (principal); C77.2 Secondary and unspecified malignant neoplasm of intra-abdominal lymph nodes; J43.9 Emphysema, unspecified; Z99.81 Dependence on supplemental oxygen; F17.210 Nicotine dependence, cigarettes, uncomplicated; M79.7 Fibromyalgia; K21.9 Gastro-esophageal reflux disease without esophagitis; Z79.899 Other long term (current) drug therapy
CPT/HCPCS: 36415; 80053; 85025; 99205

== ENCOUNTER → 2021-09-26 12:08 | Outpatient (BNVA) | payer MEDICARE, MEDICAID, SELFPAY | PROVIDERS: PCP Family Medicine; Referring Provider Internal Medicine Hematology & Oncology; Visit Provider Surgery | DX: Z20.822 Contact with and (suspected) exposure to COVID-19 (principal); Z11.52 Encounter for screening for COVID-19 | CPT/HCPCS: 87635 ==

== ENCOUNTER 2021-10-01 05:51 | Day surgery (SDC) | payer MEDICARE, MEDICAID, SELFPAY ==
[2021-09-30 14:11] VITALS: BMI 24.5
--- NOTE | 2021-10-01 | SCC_ITS ---
Procedure Done: 1. Placement of PowerPort via right subclavian vein 2. Fluoroscopic guidance and interpretation for placement of catheter 9.2 seconds of fluoroscopic guidance, for a cumulative dose of 1.27 mGy, was provided to Dr. Tinoco by the radiology department. C-arm images of the chest were saved for the patient's permanent record. [facility]
--- NOTE | 2021-10-01 06:00 | SC_ITS ---
WS: [id number] C-ARM RADIOGRAPHS CHEST; 3 IMAGES HISTORY: Power port Placement COMPARISON: None available. Intraoperative imaging during Mediport placement through the RIGHT subclavian vein. The tip overlies the RIGHT atrium. SC/C-arm FL for CVA [id number] IMPRESSION: Intraoperative imaging during Mediport placement.
[2021-10-01 06:06] VITALS: BP 149/82; PULSE 81; RESP 18; TEMP 36.8; O2SAT 96
--- NOTE | 2021-10-01 06:10 | W.PM.OPSUD ---
Surgery/Procedure H&P Update DATE OF PROCEDURE: October 01, 2021 DATE H&P PERFORMED: 09/26/21 H&P UPDATE INFORMATION: I have reviewed H&P completed within last 30 days, I have examined patient prior to procedure and No changes to prior documentation PREOP DIAGNOSIS: Lung cancer PRIMARY INDICATION FOR PROCEDURE: The same PLANNED PROCEDURE: Operation Date: 10/01/21 07:00 Proposed Procedures p Portacath Placement 26701 R91.8(Not Applicable) - Ethan Tinoco MD
--- NOTE | 2021-10-01 06:32 | ANES.PREANE2 ---
Pre-Anesthetic Assessment Pre-Anesthetic Assessment: Height/Weight: Height 1.55 m Weight 58.967 kg Preop Diagnosis: Lung cancer Proposed Procedure: Operation Date: 10/01/21 07:00 Proposed Procedures p Portacath Placement [id number] R91.8(Not Applicable) - Ethan Tinoco MD Familial anesthetic complications: None Was Beta Turner taken within 24 hours: N/A Was Clonidine taken within 24 hours: N/A Last intake: Intake Last Liquid Date 10/01/21 Last Liquid Time 01:00 Last Solid Date 09/30/21 Last Solid Time 15:00 Social: Social History: Tobacco and No alcohol Exam: Pre-Anes Outpt Exam: alert, oriented x 3, clear to auscultation bilaterally and regular rate & rhythm Airway: Cervical ROM: WNL MP: 2 Dentition: False Pulmonary: Pulmonary: COPD Comments: giant cell carcinoma, recent chamberlain procedure CV/HEM: CV/HEM: HTN GI: GI: GERD Metabolic: Metabolic: Hyperlipidemia Musc/skel: Musc/skel: Fibromyalgia Anesthetic Plan: ASA status: 4 Anesthesia: MAC Risk of > 500 ml blood loss (7ml/kg in children): No PFSH Anesthesia PFSH: Medical History COPD (chronic obstructive pulmonary disease) Fibromyalgia GERD (gastroesophageal reflux disease) Hypercholesteremia Lung mass Nicotine dependence, cigarettes, uncomplicated Overactive bladder Surgical History H/O lumpectomy History of cholecystectomy History of hysterectomy Hx of tonsillectomy Family History Brother Cancer Lung Mother Hypertension Father Heart disease Social History Second hand smoke exposure: Yes Smoking risk assessment/counseling performed?: No Alcohol intake: current Alcohol intake frequency: holidays/special occasions only Counseling given: No Counseling given: No Lives independently: Yes Household members: none Marital status: Current occupational status: retired History of recent travel: No Current gender identity: Female Data Anesthesia Cardiac Studies: No Data to Display
[2021-10-01] MEDS: sodium chloride 0.9% 1,000 ML 30 ML IV (06:41)
[2021-10-01] MEDS: lidocaine 2% INJ 20 mL INJECTION (07:28)
[2021-10-01] MEDS: heparin porcine 10,000 unit/mL SDV 4 mL 9000 UNIT IV (07:30)
--- NOTE | 2021-10-01 07:44 | PM.OP ---
Operative Report Date of procedure: October 01, 2021 Pre-op Diagnosis: Lung cancer Post-op diagnosis: same Procedure Done: 1. Placement of PowerPort via right subclavian vein 2. Fluoroscopic guidance and interpretation for placement of catheter Implants: Right subclavian vein PowerPort Surgeon: Ethan Tinoco [employer] Cutter: sales support technician Namrata Circulating nurse Rosita Monae Anesthesia: MAC (Vinnie Garcia) Estimated blood loss (mL): 10 Condition: stable Disposition: same day Brief History: Lung cancer Procedure: Patient was identified in the holding area and taken to the operative room and placed in supine position IV propofol was given by the anesthesia provider ,both arms were tucked,Time-out was done verifying the patient's name/date of /planned procedure and destination after the procedure, all were in agreement. SCDs confirmed to be functioning, preoperative antibiotics administered per protocol, and beta franky protocol was confirmed, appropriate positioning of the patient was done by me. Medications were reviewed to assess for anticoagulant usage. Risks and benefits and prevention of central line associated blood stream infection (CLABSI) were discussed with the patient/CPOA, and a consent was obtained. Monitors were in place and monitored throughout the procedure. All necessary supplies were available prior to start. Hand hygiene was completed prior to starting. Maximum barrier technique was utilized including a sterile gown, sterile gloves with a hat and mask. Site was was prepped with [chlorhexidine] and a full body drape was placed. 5 mL of 2% lidocaine was injected into the skin with a 25 gauge needle. Prep& drape was done under the usual sterile technique, lidocaine 2% was injected at the site of the stick, started by right subclavian vein stick that retrieved venous blood was obtained from the first stick, a guidewire was then threaded and under the guidance of fluoroscopy position was confirmed to be in the IVC and my interpretation, there was no PVC changes, at that point the guidewire was secured to the drapes with a hemostat and the needle was taken out, attention was then deviated towards creation of a pocket for the port were lidocaine 2% was injected using an 15 blade knife skin incision was created dissection using the Bovie to create a pocket for the Port-A-Cath to be accommodated, hemostasis was secured, after the port being appropriately flushed it was inserted into the pocket and a tunneler was used to accommodate the catheter of the port cath to be delivered through the incision first created at the site of the stick, at that point under fluoroscopy an estimated length was measured for the catheter and was cut at the designed level, followed by that a dilator with the sheath introduced onto the guidewire the dilator and the wire were retrieved and the catheter of the port was introduced via the sheath where it was peeled off and the catheter maintained to be in the SVC that was confirmed with fluoroscopy, and the fluoroscopy interpretation was done by me throughout the entire procedure. The port was kept in its pocket, 3-0 Vicryl deep subdermal interrupted sutures, skin was then closed by 4-0 Monocryl as subcuticular closure. The port was appropriately flushed with heparin and venous blood was withdrawn without difficulty The stick site was closed by 3-0 Vicryl and surgical glue was used followed by dressing. Patient tolerated the procedure well was taken to the recovery area Count was correct at the end of the procedure I was present for the whole entire procedure Position of the catheter was checked with a postoperative chest x-ray and it was in good position without evidence of pneumothorax
--- NOTE | 2021-10-01 07:51 | XRR_ITS ---
PROCEDURE INFORMATION: Exam: XR Chest Exam date and time: 10/01/2021 7:51 AM Age: 71 years old Clinical indication: Device placement; Other: Right subclavian vein powerport placement; Prior surgery; Surgery date: Post-operative (0-2 days); Additional info: Status post right subclavian vein powerport placement TECHNIQUE: Imaging protocol: XR of the chest. Views: 1 view. COMPARISON: CR XR chest 1V portable [id number] 09/10/2021 11:40 AM FINDINGS: Tubes, catheters and devices: [id number] overlies the right chest with lead tip positioning superior vena cava and has intervally been placed. Lungs: Diminishing opacity left lower lung with persistent left paramediastinal opacity and surgical clips at the left lauri. Indistinction of the margin of thoracic aorta on the left. Overall diffuse interstitial thickening/coarsening. Pleural spaces: Minimal blunting at the left costophrenic angle. No pneumothorax. Heart/Mediastinum: See Lungs finding. Diaphragm: Elevated left hemidiaphragm. Bones/joints: Degenerative changes of left shoulder. XR/XR chest 1V portable [id number] IMPRESSION: 1. Diminishing opacity left lower lung. 2. Persistent left paramediastinal parenchymal changes probably residual postoperative versus other underlying residual neoplasm or adjacent atelectasis or infiltrate. 3. Overall diffuse coarsening/thickening of the interstitium. Radiation Dose CTDIVOL = (mGy): DLP = (mGy-cm)
[2021-10-01 07:53] VITALS: BP 143/86; PULSE 78; RESP 18; TEMP 36.4; O2SAT 100
[2021-10-01 07:55] VITALS: BP 160/84; PULSE 71; RESP 23; O2SAT 100
[2021-10-01 08:00] VITALS: BP 160/83; PULSE 71; RESP 18; TEMP 36.4; O2SAT 100
[2021-10-01 08:10] VITALS: BP 157/98; PULSE 70; RESP 18; O2SAT 98
--- NOTE | 2021-10-01 08:18 | SUR.PHASEII ---
oncology notified of patient port being placed today, spoke with Brandon.
[2021-10-01 08:42] VITALS: BP 125/72; PULSE 69; RESP 18; O2SAT 95
--- NOTE | 2021-10-01 13:46 | ANE.PACU2 ---
Inpatient post-anesthesia follow up: Airway intact: Yes Vital signs: Temperature 97.6 F Pulse Rate 69 Respiratory Rate 18 Blood Pressure 125/72 Pulse Oximetry 95 Oxygen Delivery Me thod Room Air Oxygen Flow Rate 2 Fraction of Inspir ed Oxygen Hydration adequate: Yes Nausea and vomiting: No Pain level: 2 Mental status: Baseline
== END 2021-10-01 08:48 | disposition home or self-care (01) ==
PROVIDERS: PCP Family Medicine; Visit Provider Surgery
PROC: (CPT 36561; principal; 2021-10-01 07:00)
DX: C34.90 Malignant neoplasm of unspecified part of unspecified bronchus or lung (principal); J44.9 Chronic obstructive pulmonary disease, unspecified; I10 Essential (primary) hypertension; K21.9 Gastro-esophageal reflux disease without esophagitis; E78.5 Hyperlipidemia, unspecified; M79.7 Fibromyalgia; E78.00 Pure hypercholesterolemia, unspecified; F17.210 Nicotine dependence, cigarettes, uncomplicated; Z82.49 Family history of ischemic heart disease and other diseases of the circulatory system
CPT/HCPCS: 36561; 71045; 76000; 77001; 96365; C1788; J0690; J1644; J2250; J2405; J2704; J3010; J7030

== ENCOUNTER 2021-10-14 09:03 | Outpatient (CLI) | payer MEDICARE, MEDICAID, SELFPAY ==
--- NOTE | 2021-10-14 09:06 | MR_ITS ---
WS: [id number] MRI BRAIN WITH AND WITHOUT CONTRAST HISTORY: History of lung cancer. Evaluate for metastatic disease. COMPARISON: None available. TECHNIQUE: Multiplanar imaging performed through the brain with MultiHance 11 ml's IV. No acute infarcts are seen. Thornton-white matter differentiation is well preserved. There is extensive T 2 and FLAIR signal hyperintensities throughout the white matter and also extending into the angela bila terally. None of these areas enhance and these are most likely due to microvascular ischemic type aimee nges in the small vessels. There is a small 3 mm nodule which is similar signal intensity on the T1 s equence extending above the pituitary gland. This does not enhance on the postcontrast image. On the T2 and FLAIR signal there is mild increased signal. No susceptibility artifacts or prior lacunar infarcts. Ventricles and extra-axial spaces are normal. Visualized posterior fossa and brainstem are also normal. Postcontrast images are negative for masses or vascular malformations. Dural venous sinuses are normal. Paranasal sinuses: Well aerated with no significant disease. Mastoid air cells: Normal. Calvarium and scalp: Normal. MR/MR head wo/w con [id number] IMPRESSION: 1. No evidence for metastatic disease to the brain. 2. Severe chronic white matter ischemic type changes in the supratentorial whi te matter and also the angela bilaterally. 3. Nonenhancing 3 mm nodule extends superior to the pituitary gland. Different ial includes microadenoma or Rathke's cleft cyst. Less likely metastatic lesion or aneurysm. For further evaluation consider follow-up with dedicated MRI pitu itary gland with and without contrast.
[2021-10-14] MEDS: gadobenate dimeglumine 20 mL vial IV (10:09)
== END 2021-10-14 09:04 | disposition home or self-care (01) ==
LOC: RADSHAW 09:05
PROVIDERS: PCP Family Medicine; Visit Provider Internal Medicine Hematology & Oncology
DX: C34.92 Malignant neoplasm of unspecified part of left bronchus or lung (principal); E23.6 Other disorders of pituitary gland
CPT/HCPCS: 70553; A9577

== ENCOUNTER 2021-11-07 06:20 | Outpatient (RCR) | payer MEDICARE, MEDICAID, SELFPAY ==
--- NOTE | 2021-10-16 09:47 | N.ONRAD NP_ITS ---
Radiation Oncology Consultation Patient Name: Marbella Alfaro Date of : 1950 Date of Service: 10/16/2021 Attending Physician: Diony Oneill M.D. Marbella Alfaro was seen in consultation this morning at the request of Silvia Sal M.D. for consideration of thoracic radiotherapy in the management of a recently diagnosed non-small cell lung cancer. She was identified to have a 4.8 cm x 3.6 cm x 3.8 cm left upper-lobe mass by a low-dose CT lung cancer screening. A bronchoscopy with endobronchial ultrasound-guided transbronchial needle biopsy was performed by Bimal Aranda M.D. on July 16, 2021. Biopsies obtained from the left hilar mass demonstrated atypical cell clusters but was not diagnostic for malignancy. A PET CT ordered on August 05, [id number] (independently visualized in [facility]) confirmed metabolic activity within the left superior hilum and AP window regions (SUV 27.7) without metastatic disease. A left-sided [place] procedure with biopsy of the AP window mass was completed on September 09 by Wallace Lugo M.D. A giant cell carcinoma was diagnosed with a PD-L1 expression of greater than 50% (the pathology report was personally reviewed in [facility]). An MRI of the head obtained on October 14, 2021 demonstrated microvascular ischemic changes and did not identify cerebral metastases. The patient was evaluated for definitive thoracic radiotherapy. I discussed with Ms. Alfaro the AJCC clinical stage IIIA (T2bN2) lung cancer corresponding to her disease. I also reviewed the National Comprehensive Cancer Network Guidelines recommending concurrent chemoradiotherapy for the management of locally advanced lung cancer and the classic study, RTOG 9410, comparing sequential versus concurrent chemoradiotherapy that demonstrated an overall survival advantage for the concurrent chemoradiotherapy regimen and established the standard of care. I would endorse a six week course of thoracic radiotherapy. A computed tomographic radiotherapy planning scan with contrast in the treatment position will be acquired and co-registered to the patient's staging PET CT scan to identify the gross tumor volume. The potential toxicities of thoracic radiotherapy were reviewed. The patient has verbalized understanding would like to proceed as recommended. The patient???s treatment plan was discussed with Silvia Sal M.D. Signed by: Dr. Diony Oneill 10/16/2021 9:51:22 AM
--- NOTE | 2021-10-18 09:52 | ONC FU_ITS ---
Dr. Sal follow up note Patient: Marbella Alfaro Unit #: [id number]: 1950 Dicatated By: Colt Sal M.D.Date of Visit:Oct 18, 2021 Onc Med Follow-up/Prog Note History of Present Illness: Ms. Marbella Alfaro, 71-year-old female with longstanding history of smoking, underwent CT lung screening on July 08, 2021, which showed ill-defined soft tissue mass centered within left upper lobe extending into AP window, mass measured 4.8 x 3.6 x 3.8 cm, marked emphysema, bilateral lower lobe calcified granulomata, patient underwent CT PET scan on August 05, 2021 which showed mass identified involving left superior hilum/AP window area measuring up to 3.3 x 3.5 cm with SUV 27.7, no other abnormality seen Patient underwent bronchoscopy/EBUS but pathology was inconclusive, subsequently patient was referred to Dr. Lugo for mediastinoscopy, on September 09, 2021 she underwent mediastinoscopy with biopsy lymph node, AP window mass #1 and mass #2 both showed giant cell carcinoma, variant of non-small cell lung cancer, Ki-67 60%, PD-L1 expression more than 50% MRI scan of the brain done on October 14, 2021 showed no evidence of brain mets Due to severe emphysema, patient is not a candidate for surgical resection, Past medical history significant for COPD, fibromyalgia, GERD, Longstanding history of smoking, still active, on home oxygen Denies any headaches blurred vision or double vision, denies any hemoptysis or hematemesis, denies any jaundice denies any new bony pains, denies any melena or hematochezia. Appetite is reasonable Came for follow-up, complaining of pain around mediastinoscopy site, no discharge or overlying skin changes. Patient said her pain was under control with hydrocodone but ran out out of prescription, otherwise no fever chills, no nausea or vomiting but indigestion and also complaining of anxiety and not get enough sleep at night. Patient is trying to quit smoking. Has seen radiation oncology, will be starting combined chemoradiation with weekly carboplatin/Taxol next week. Medications: Breo Ellipta 1 Inhalation (of 100-25 mcg/inh) Aerosol Powder, Breath Activated Inhalation daily, Cholecalciferol 1 Capsule (of 50 mcg ) Oral daily, Loratadine 1 Tablet (of 10 mg) Oral daily, Lovastatin 1 Tablet (of 20 mg) Oral daily, Myrbetriq 1 Tablet (of 25 mg) Tablet SR 24 HR Oral daily, Omeprazole 1 Capsule (of 40 mg) Capsule Delayed Release Oral daily, Prochlorperazine Maleate (5 mg) Tablet Oral Take as Directed, Spiriva HandiHaler 1 Capsule (of 18 mcg) Inhalation daily Allergies: No Known Allergies. Review of Systems: Review of Systems is not available for this patient. Vital Signs: Performed on Oct 18, 2021 09:23 Height - 61.00 in Weight - 117.8 lbs (LOW) BSA - 1.51 sq.m BMI - 22.26 Temperature - 96.3 F (LOW) Pulse - 80 /min Respiration - 18 /min BP - 146/77 mm(hg) (HIGH) O2 Sat - 94 % (LOW) Pain - 8 Fatigue - 6 Performance Status: 0 - Fully active, able to carry on all predisease activities without restrictions. (ECOG) Physical Examination: ENMT - No mouth sores, no thrush, no jaundice, Respiratory - Lungs are clear to auscultation, Cardiovascular - Regular rate and rhythm of heart, Abdomen - Soft, bowel sounds present, Extremities - No visible edema. Lab/Imaging: Most recent lab results are not available for this patient. 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 No other abnormal node uptake is seen, no evidence of distant metastatic disease MRI scan of the head done on October 14, 2021 shows no evidence of brain mets, Clinically staged 3A (T2bN2) CT lung screening done on July 08, 2021 shows ill-defined soft tissue mass within the left upper lobe extending into the AP window measuring 4.8 x 3.6 x 3.8 cm, marked emphysema, Patient is on home oxygen Plan: Discussed with patient regarding her MRI scan of the brain finding which shows no brain mets so clinically patient has stage IIIa disease e.g. T2BN2, as per NCCN guidelines she is a candidate for combined chemoradiation therapy followed by year-long maintenance immunotherapy with durvalumab, as surgery has already seen her and concluded that she is not a candidate for surgery. All the side effect possible benefits associated with weekly carboplatin AUC 2, and Taxol 50 mg per metered square concurrent with radiation therapy were discussed in detail including but not limited to bone marrow suppression, hair loss, nausea vomiting, allergic reaction/peripheral neuropathy especially with the Taxol, hyperglycemia with steroids, were mentioned further teaching will be done by chemotherapy nurse, will obtain approval from her insurance prior to treatment and then patient return to clinic next week to start her first cycle of chemotherapy with weekly carboplatin/Taxol concurrent with radiation therapy She will return to clinic 1 week after her chemotherapy is initiated with CBC CMP Signed By: Colt Sal M.D. <<Signature on File>>
--- NOTE | 2021-10-22 | CT_ITS ---
Radiation Therapy Planning CT images; total exam DLP: 282.08 mGy-cm MTDD
--- NOTE | 2021-10-28 09:59 | ONCRAD TMN_ITS ---
Radiation Oncology Treatment Management Note Patient Name: Marbella Alfaro Date of : 1950 Date of Service: 10/28/2021 Attending Physician: Diony Oneill M.D. 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 She was identified to have a 4.8 cm x 3.6 cm x 3.8 cm left upper-lobe mass by a low-dose CT lung cancer screening. A bronchoscopy with endobronchial ultrasound-guided transbronchial needle biopsy was performed by Bimal Aranda M.D. on July 16, 2021. Biopsies obtained from the left hilar mass demonstrated atypical cell clusters but was not diagnostic for malignancy. A PET CT ordered on August 05, [id number] (independently visualized in [facility]) confirmed metabolic activity within the left superior hilum and AP window regions (SUV 27.7) without metastatic disease. A left-sided [place] procedure with biopsy of the AP window mass was completed on September 09 by Wallace Lugo M.D. 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 The patient has received 2 Gy of a prescribed 60 Thornton with an intensity modulated radiotherapy plan utilizing a step and shoot treatment technique. She has been prescribed carboplatin (AUC 2) and paclitaxel (50 mg/m???) weekly during therapy. Upon review of systems, she denied pulmonary symptoms. On physical examination, the patient weighed 117 lbs. Her temperature was 98.8 ???F and the blood pressure was 139/76 mmHg. The pulse was 77 bpm and her respiratory rate was 20. Oxygen saturation while breathing room air was 97%. There was no erythema within the treatment tamayo. Auscultation of the posterior lung tamayo identified Continue thoracic radiotherapy as prescribed. Signed by: Dr. Diony Oneill 10/28/2021 9:57:57 AM
[2021-10-28 10:18] LABS: Basophils # 0.1 10^3/uL (0.0-0.1); Basophils % 0.6 %; Eosinophils # 0.5 10^3/uL (0.0-0.8); Eosinophils % 4.7 %; Hematocrit 43.7 % (37.0-47.0); Lymphocytes # 2.5 10^3/uL (0.8-4.8); Lymphocytes % 25.3 %; Mean Corpuscular Hemoglobin 28.3 pg (28.0-34.0); Mean Corpuscular Volume 88.5 fl (81-99); Mean Platelet Volume 10.1 fL (7.4-10.4); Monocytes # 0.6 10^3/uL (0.2-0.9); Monocytes % 5.8 %; Neutrophils # 6.32 10^3/uL (1.8-7.7); Neutrophils % 63.4 %; Nucleated Red Blood Cells % 0 %; Platelet Count 340 10^3/cmm (130-400); Red Blood Count 4.94 10^6/uL (4.1-5.3)
[2021-10-28 10:41] LABS: Alanine Aminotransferase 20 U/L (0-33); Albumin Level 4.1 g/dL (3.5-5.2); Alkaline Phosphatase 90 IU/L (35-105); Anion Gap 16.3 (5-19); Aspartate Amino Transferase 19 U/L (0-32); Blood Urea Nitrogen 6 mg/dL (8-23); Calcium 9.1 mg/dL (8.5-10.5); Carbon Dioxide 24 mmol/L (22-29); Chloride 102 mmol/L (98-107); Globulin 2.4 g/dL (1.3-4.6); Glomerular Filtration Rate 98.8 mL/min (90-130); Glucose 91 mg/dL (65-115); Osmolality Calculated 283 mOsm/kg (285-295); Potassium 4.3 mmol/L (3.5-5.1); Sodium 138 mmol/L (136-145); Total Bilirubin 0.3 mg/dL (0.15-1.2); Total Protein 6.5 g/dL (6.6-8.7)
[2021-10-29] MEDS: famotidine 20 mg/2 mL INJ IVP (09:58)
[2021-10-29] MEDS: diphenhydrAMINE 50 mg/mL SDV 1mL 25 MG IV (09:59)
[2021-10-29] MEDS: sodium chloride 0.9% 250 ML 75 ML IV (10:00)
[2021-10-29] MEDS: palonosetron 0.25 mg/5 mL SDV IV (10:00)
[2021-11-04 13:38] LABS: Basophils # 0.1 10^3/uL (0.0-0.1); Eosinophils # 0.5 10^3/uL (0.0-0.8); Eosinophils % 5.6 %; Hematocrit 41.7 % (37.0-47.0); Hemoglobin 13.5 g/dL (11.5-15.3); Lymphocytes # 1.8 10^3/uL (0.8-4.8); Mean Corpuscular HGB Conc 32.4 g/dL (30.0-36.0); Mean Corpuscular Hemoglobin 28.8 pg (28.0-34.0); Mean Corpuscular Volume 89.1 fl (81-99); Mean Platelet Volume 9.9 fL (7.4-10.4); Monocytes # 0.4 10^3/uL (0.2-0.9); Monocytes % 4.5 %; Neutrophils # 6.13 10^3/uL (1.8-7.7); Neutrophils % 68.3 %; Nucleated Red Blood Cells % 0 %; Platelet Count 307 10^3/cmm (130-400); Red Blood Count 4.68 10^6/uL (4.1-5.3); Red Cell Distribution Width 13.1 % (12.1-15.1)
[2021-11-04 13:59] LABS: Alanine Aminotransferase 21 U/L (0-33); Alkaline Phosphatase 78 IU/L (35-105); Anion Gap 16.2 (5-19); Aspartate Amino Transferase 15 U/L (0-32); Blood Urea Nitrogen 12 mg/dL (8-23); Calcium 8.8 mg/dL (8.5-10.5); Carbon Dioxide 25 mmol/L (22-29); Chloride 99 mmol/L (98-107); Globulin 2.4 g/dL (1.3-4.6); Glucose 86 mg/dL (65-115); Osmolality Calculated 281 mOsm/kg (285-295); Potassium 4.2 mmol/L (3.5-5.1); Sodium 136 mmol/L (136-145); Total Bilirubin 0.3 mg/dL (0.15-1.2); Total Protein 6.4 g/dL (6.6-8.7)
[2021-11-05] MEDS: palonosetron 0.25 mg/5 mL SDV IV (09:30)
[2021-11-05] MEDS: sodium chloride 0.9% 250 ML 75 ML IV (09:30)
[2021-11-05] MEDS: famotidine 20 mg/2 mL INJ IVP (09:31)
[2021-11-05] MEDS: diphenhydrAMINE 50 mg/mL SDV 1mL 25 MG IV (09:33)
--- NOTE | 2021-11-05 14:01 | ONCRAD TMN_ITS ---
Radiation Oncology Weekly Treatment Management Patient: Dominic Tyson MR#: [id number] : 1950 Attending Physician: Dr. Zaire Boyd Date of Service: 11/05/2021 Referring Physician(s) : Colt Sal M.D. Diagnosis: C34.92 - Malignant neoplasm of unspecified part of left bronchus or lung, Diagnosed 09/09/2021 (Active) Stage IIIA, T2b, N2, M0 Radiotherapy to date: Course: Lung 2020, Treatment Site: [facility] ??? EDI, Ref. ID: [id number], Energy: 6X, Dose/Fx (cGy): 200, #Fx: 30, Dose Correction (cGy): 0, Total Dose (cGy): 1,200, Start Date: 10/28/2021, Elapsed Days: 8 Reason for visit: The patient is being seen today as part of their regularly scheduled weekly on treatment visits to assess for acute toxicities from radiotherapy. She is beginning her second week of radiation to the thorax. Review of Systems: No pulmonary complaints. Her main complaint is esophageal reflux that has been refractory to proton pump inhibitors. She states that she had a history of reflux for a few years prior to the cancer diagnosis. She states she was on omeprazole with good control. Since being under treatment, she states that she often wakes up with painful reflux and notices it to some degree all day long. She has had some nausea but denies vomiting. She states eating certain foods tends to help the burning and other foods tend to exacerbate it. She did not give any specific examples. About 2 weeks ago she was placed on Prevacid and now is taking both Prevacid and omeprazole in the morning. She has not noticed any significant improvement. She has not tried any H2 blockers or regular antacids. Vital Signs: Performed on 11/05/2021 8:33 AM Height - 61.00 in, Weight - 117.8 lbs (high), BSA - 1.51 sq.m, BMI - 22.26, Temperature - 98.2 f (low), Pulse - 88 /min (high), Respiration - 16 /min, O2 Sat - 91 % (low), Pain - 0, Fatigue - 2, BP - 159/ 89 mm(hg)(high/), Performed on 11/05/2021 1:30 PM Physical Exam: Alert, oriented, no acute distress. She appears chronically ill. Her breathing is regular and unlabored. Imaging: Radiation therapy imaging related to accurate target localization (i.e. KV, MV and CBCT) was reviewed. Appropriate changes, if any, were made to ensure treatment accuracy. Plan: She will continue the proton pump inhibitors. I recommended that she take 2 [id number] Pepcid in the evening either just before or just after the evening meal. I recommended that she try a regular antacid such as Tums about 2 hours after meals, when her stomach is likely to be empty and most subject to acid irritation. I told her sometimes we have to experiment with these medications to try to find one that will give her relief. Continue treatment according to plan. Signed by: Dr. Zaire Boyd 11/05/2021 1:59:53 PM
== END 2021-11-08 23:59 | disposition home or self-care (01) ==
LOC: ONCMED 06:20
PROVIDERS: Internal Medicine Hematology & Oncology; Absent Provider Specialist; PCP Family Medicine; Visit Provider Specialist
DX: Z51.0 Encounter for antineoplastic radiation therapy (principal); Z51.11 Encounter for antineoplastic chemotherapy; C34.12 Malignant neoplasm of upper lobe, left bronchus or lung; J43.9 Emphysema, unspecified; Z99.81 Dependence on supplemental oxygen; K21.9 Gastro-esophageal reflux disease without esophagitis; Z79.899 Other long term (current) drug therapy
CPT/HCPCS: 36591; 77300; 77301; 77334; 77336; 77338; 77386; 77470; 80053; 85025; 96367; 96375; 96413; 96417; 99205; 99214; 99215; J1100; J1200; J2469; J3490; J7030; J7040; J7050; J9045; J9267; Q9967

== ENCOUNTER 2021-12-09 06:50 | Outpatient (RCR) | payer MEDICARE, MEDICAID, SELFPAY ==
[2021-11-11 13:41] LABS: Basophils # 0.1 10^3/uL (0.0-0.1); Basophils % 1.3 %; Eosinophils # 0.2 10^3/uL (0.0-0.8); Eosinophils % 4.6 %; Hematocrit 40.2 % (37.0-47.0); Hemoglobin 13.1 g/dL (11.5-15.3); Lymphocytes # 0.9 10^3/uL (0.8-4.8); Lymphocytes % 19.6 %; Mean Corpuscular HGB Conc 32.6 g/dL (30.0-36.0); Mean Corpuscular Hemoglobin 29.2 pg (28.0-34.0); Mean Corpuscular Volume 89.7 fl (81-99); Mean Platelet Volume 9.8 fL (7.4-10.4); Monocytes # 0.3 10^3/uL (0.2-0.9); Neutrophils # 3.03 10^3/uL (1.8-7.7); Neutrophils % 66.8 %; Nucleated Red Blood Cells % 0 %; Platelet Count 288 10^3/cmm (130-400); Red Blood Count 4.48 10^6/uL (4.1-5.3); Red Cell Distribution Width 13.6 % (12.1-15.1); White Blood Count 4.5 10^3/uL (4.0-10.0)
[2021-11-11 13:57] LABS: Alanine Aminotransferase 25 U/L (0-33); Alkaline Phosphatase 84 IU/L (35-105); Anion Gap 15.3 (5-19); Aspartate Amino Transferase 16 U/L (0-32); Blood Urea Nitrogen 13 mg/dL (8-23); Calcium 8.6 mg/dL (8.5-10.5); Carbon Dioxide 26 mmol/L (22-29); Chloride 99 mmol/L (98-107); Globulin 2.5 g/dL (1.3-4.6); Glomerular Filtration Rate 98.8 mL/min (90-130); Glucose 92 mg/dL (65-115); Osmolality Calculated 282 mOsm/kg (285-295); Potassium 4.3 mmol/L (3.5-5.1); Sodium 136 mmol/L (136-145); Total Bilirubin 0.3 mg/dL (0.15-1.2); Total Protein 6.5 g/dL (6.6-8.7)
[2021-11-12] MEDS: sodium chloride 0.9% 250 ML 75 ML IV (09:55)
[2021-11-12] MEDS: palonosetron 0.25 mg/5 mL SDV IV (09:55)
[2021-11-12] MEDS: famotidine 20 mg/2 mL INJ IVP (09:56)
[2021-11-12] MEDS: diphenhydrAMINE 50 mg/mL SDV 1mL 25 MG IV (09:58)
--- NOTE | 2021-11-12 13:38 | ONCRAD TMN_ITS ---
Radiation Oncology Treatment Management Note Patient Name: Marbella Alfaro Date of : 1950 Date of Service: 11/12/2021 Attending Physician: Diony Oneill M.D. 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 She was identified to have a 4.8 cm x 3.6 cm x 3.8 cm left upper-lobe mass by a low-dose CT lung cancer screening. A bronchoscopy with endobronchial ultrasound-guided transbronchial needle biopsy was performed by Bimal Aranda M.D. on July 16, 2021. Biopsies obtained from the left hilar mass demonstrated atypical cell clusters but was not diagnostic for malignancy. A PET CT ordered on August 05, [id number] (independently visualized in [facility]) confirmed metabolic activity within the left superior hilum and AP window regions (SUV 27.7) without metastatic disease. A left-sided [place] procedure with biopsy of the AP window mass was completed on September 09 by Wallace Lugo M.D. 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 The patient has received 20 Gy of a prescribed 60 Thornton with an intensity modulated radiotherapy plan utilizing a step and shoot treatment technique. She has been prescribed carboplatin (AUC 2) and paclitaxel (50 mg/m???) weekly during therapy. Upon review of systems, she denied pulmonary symptoms. On physical examination, the patient weighed 120 lbs. Her temperature was 98.6 ???F and the blood pressure was 138/80 mmHg. The pulse was 83 bpm and her respiratory rate was 16. Oxygen saturation while breathing room air was 97%. There was no erythema within the treatment tamayo. Auscultation of the posterior lung tamayo identified decreased breath sounds. Continue thoracic radiotherapy as planned. Signed by: Dr. Diony Oneill 11/12/2021 1:37:02 PM
--- NOTE | 2021-11-12 14:50 | ONC FU_ITS ---
Dr. Sal follow up note Patient: Marbella Alfaro Unit #: [id number]: 1950 Dicatated By: Colt Sal M.D.Date of Visit:Nov 12, 2021 Onc Med Follow-up/Prog Note History of Present Illness: Ms. Marbella Alfaro, 71-year-old female with longstanding history of smoking, underwent CT lung screening on July 08, 2021, which showed ill-defined soft tissue mass centered within left upper lobe extending into AP window, mass measured 4.8 x 3.6 x 3.8 cm, marked emphysema, bilateral lower lobe calcified granulomata, patient underwent CT PET scan on August 05, 2021 which showed mass identified involving left superior hilum/AP window area measuring up to 3.3 x 3.5 cm with SUV 27.7, no other abnormality seen Patient underwent bronchoscopy/EBUS but pathology was inconclusive, subsequently patient was referred to Dr. 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 Her first cycle was on October 29, 2021. Came for follow up, denies any specific complaints, no more mouth sores due to oral thrush, which responded well to Diflucan. No fever chills, no nausea or vomiting, no diarrhea constipation, off and on indigestion but patient can resume pineapple juice, and still smoke 1 pack a day. Now being treated with combined chemoradiation with weekly carboplatin/Taxol, tolerating well otherwise Medications: Breo Ellipta 1 Inhalation (of 100-25 mcg/inh) Aerosol Powder, Breath Activated Inhalation daily, Cholecalciferol 1 Capsule (of 50 mcg ) Oral daily, HYDROcodone-Acetaminophen 1 - 2 Tablet (of 5-325 mg) Tablet Oral q 4 to 6 hours PRN, Loratadine 1 Tablet (of 10 mg) Oral daily, Lovastatin 1 Tablet (of 20 mg) Oral daily, Myrbetriq 1 Tablet (of 25 mg) Tablet SR 24 HR Oral daily, Omeprazole 1 Capsule (of 40 mg) Capsule Delayed Release Oral daily, Prochlorperazine Maleate (5 mg) Tablet Oral Take as Directed, Spiriva HandiHaler 1 Capsule (of 18 mcg) Inhalation daily Allergies: No Known Allergies. Review of Systems: Review of Systems is not available for this patient. Vital Signs: Performed on Nov 12, 2021 13:43 Height - 61 in Weight - 120 lbs Temperature - 97.6 F Pulse - 83 /min Respiration - 16 /min BP - 138/80 mm(hg) O2 Sat - 93 % (LOW) Pain - 2 Fatigue - 5 Performed on Nov 12, 2021 13:43 BMI - 22.674 kg/m2 Performed on Nov 12, 2021 09:01 Height - 61.00 in Weight - 117.4 lbs (LOW) BSA - 1.51 sq.m BMI - 22.18 Temperature - 96.4 F (LOW) Pulse - 107 /min (HIGH) Respiration - 22 /min BP - 140/81 mm(hg) O2 Sat - 93 % (LOW) Pain - 0 Performance Status: 0 - Fully active, able to carry on all predisease activities without restrictions. (ECOG) Physical Examination: ENMT - No mouth sores, no thrush, no jaundice, Respiratory - Lungs are clear to auscultation, Cardiovascular - Regular rate and rhythm of heart, Abdomen - Soft, bowel sounds present, Extremities - No visible edema. Lab/Imaging: Test performed on Nov 12, 2021 07:38 Creatinine 0.6 mg/dL Cr Clearance (Est) 72.97 mL/min Impression: Giant cell carcinoma involving AP window lymph nodes per mediastinoscopy done on September 09, 2021 Immunohistochemistry confirmed Ki-67 60%,, PD-L1 more than 50% CT PET scan done on August 05, 2021 showed 3.3 x 3.5 cm mass involving left superior hilum/AP window area with SUV of 27.7. No other abnormal node uptake is seen, no evidence of distant metastatic disease MRI scan of the head done on October 14, 2021 shows no evidence of brain mets, Clinically staged 3A (T2bN2) CT lung screening done on July 08, 2021 shows ill-defined soft tissue mass within the left upper lobe extending into the AP window measuring 4.8 x 3.6 x 3.8 cm, marked emphysema, Patient is on home oxygen Plan: Discussed with patient regarding her labs white blood count 4.5 hemoglobin 13.1 hematocrit 40.2 platelets 288 CMP within normal limits Clinically, patient doing well, now being treated with combined chemoradiation with weekly carboplatin/Taxol, will proceed with next weekly dose of carboplatin/Taxol concurrent with radiation therapy and then she will return to clinic in 1 week with CBC CMP As far as mild indigestion is concerned, patient was advised to avoid acidic/spicy foods or smoking. And will also give her nystatin suspension, she will take as directed. Signed By: Colt Sal M.D. <<Signature on File>>
[2021-11-18 13:53] LABS: Eosinophils # 0.1 10^3/uL (0.0-0.8); Eosinophils % 2.9 %; Hematocrit 39.6 % (37.0-47.0); Hemoglobin 12.5 g/dL (11.5-15.3); Lymphocytes # 0.7 10^3/uL (0.8-4.8); Mean Corpuscular HGB Conc 31.6 g/dL (30.0-36.0); Mean Corpuscular Hemoglobin 28.7 pg (28.0-34.0); Mean Platelet Volume 9.8 fL (7.4-10.4); Monocytes # 0.4 10^3/uL (0.2-0.9); Monocytes % 10.4 %; Neutrophils # 2.83 10^3/uL (1.8-7.7); Neutrophils % 68.7 %; Nucleated Red Blood Cells % 0 %; Platelet Count 242 10^3/cmm (130-400); Red Blood Count 4.35 10^6/uL (4.1-5.3); Red Cell Distribution Width 13.8 % (12.1-15.1); White Blood Count 4.1 10^3/uL (4.0-10.0)
[2021-11-18 14:12] LABS: Alanine Aminotransferase 18 U/L (0-33); Albumin Level 3.8 g/dL (3.5-5.2); Alkaline Phosphatase 83 IU/L (35-105); Aspartate Amino Transferase 15 U/L (0-32); Blood Urea Nitrogen 10 mg/dL (8-23); Calcium 9.3 mg/dL (8.5-10.5); Carbon Dioxide 24 mmol/L (22-29); Chloride 99 mmol/L (98-107); Globulin 2.4 g/dL (1.3-4.6); Glucose 91 mg/dL (65-115); Osmolality Calculated 279 mOsm/kg (285-295); Sodium 135 mmol/L (136-145); Total Bilirubin 0.3 mg/dL (0.15-1.2); Total Protein 6.2 g/dL (6.6-8.7)
--- NOTE | 2021-11-19 09:51 | ONC FU_ITS ---
Dr. Sal follow up note Patient: Marbella Alfaro Unit #: [id number]: 1950 Dicatated By: Colt Sal M.D.Date of Visit:Nov 19, 2021 Onc Med Follow-up/Prog Note History of Present Illness: Ms. Marbella Alfaro, 71-year-old female with longstanding history of smoking, underwent CT lung screening on July 08, 2021, which showed ill-defined soft tissue mass centered within left upper lobe extending into AP window, mass measured 4.8 x 3.6 x 3.8 cm, marked emphysema, bilateral lower lobe calcified granulomata, patient underwent CT PET scan on August 05, 2021 which showed mass identified involving left superior hilum/AP window area measuring up to 3.3 x 3.5 cm with SUV 27.7, no other abnormality seen Patient underwent bronchoscopy/EBUS but pathology was inconclusive, subsequently patient was referred to Dr. 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 Her first cycle was on October 29, 2021. Came for follow-up, denies any specific complaint except off and on indigestion, discomfort/pain in retrosternal area especially with swallowing. No fever chills, no nausea or vomiting, no diarrhea constipation, no peripheral numbness. Tolerating combined chemoradiation with weekly carboplatin/Taxol well otherwise Medications: Breo Ellipta 1 Inhalation (of 100-25 mcg/inh) Aerosol Powder, Breath Activated Inhalation daily, Cholecalciferol 1 Capsule (of 50 mcg ) Oral daily, HYDROcodone-Acetaminophen 1 - 2 Tablet (of 5-325 mg) Tablet Oral q 4 to 6 hours PRN, Loratadine 1 Tablet (of 10 mg) Oral daily, Lovastatin 1 Tablet (of 20 mg) Oral daily, Myrbetriq 1 Tablet (of 25 mg) Tablet SR 24 HR Oral daily, Omeprazole 1 Capsule (of 40 mg) Capsule Delayed Release Oral daily, Prochlorperazine Maleate (5 mg) Tablet Oral Take as Directed, Spiriva HandiHaler 1 Capsule (of 18 mcg) Inhalation daily Allergies: No Known Allergies. Review of Systems: Review of Systems is not available for this patient. Vital Signs: Performed on Nov 19, 2021 09:15 Height - 61.00 in Weight - 115 lbs (LOW) BSA - 1.49 sq.m BMI - 21.73 Temperature - 98.7 F Pulse - 104 /min (HIGH) Respiration - 18 /min BP - 148/78 mm(hg) (HIGH) O2 Sat - 95 % (LOW) Pain - 0 Fatigue - 0 Performance Status: 0 - Fully active, able to carry on all predisease activities without restrictions. (ECOG) Physical Examination: ENMT - Soft, bowel sounds present, Respiratory - Poor air entry, mild wheezing, Cardiovascular - Regular rate and rhythm of heart, Abdomen - Soft, bowel sounds present, Extremities - No visible edema. Lab/Imaging: Test performed on Nov 19, 2021 07:30 Creatinine 0.5 mg/dL Cr Clearance (Est) 87.57 mL/min Impression: Giant cell carcinoma involving AP window lymph nodes per mediastinoscopy done on September 09, 2021 Immunohistochemistry confirmed Ki-67 60%,, PD-L1 more than 50% CT PET scan done on August 05, 2021 showed 3.3 x 3.5 cm mass involving left superior hilum/AP window area with SUV of 27.7. No other abnormal node uptake is seen, no evidence of distant metastatic disease MRI scan of the head done on October 14, 2021 shows no evidence of brain mets, Clinically staged 3A (T2bN2) CT lung screening done on July 08, 2021 shows ill-defined soft tissue mass within the left upper lobe extending into the AP window measuring 4.8 x 3.6 x 3.8 cm, marked emphysema, Patient is on home oxygen Plan: Discussed with patient regarding her labs white blood count 4.1 hemoglobin 12.5 hematocrit 39.6 platelets 242,000 CMP within normal limits Clinically, patient doing well, in mild to moderate distress due to chemoradiation induced esophagitis, patient was given pain medication by radiation oncology, and also use acid reduction therapy. Overall feeling well, will proceed with next weekly dose of carboplatin/Taxol today and then she will return to clinic in 1 week with CBC CMP and if reasonable for next weekly dose of carboplatin/TaxolPatient was advised to quit smoking, was offered any assistance she may need, she was also advised not to consume spicy food or citrus fruits Signed By: Colt Sal M.D. <<Signature on File>>
[2021-11-19] MEDS: palonosetron 0.25 mg/5 mL SDV IV (09:55)
[2021-11-19] MEDS: sodium chloride 0.9% 250 ML 75 ML IV (09:55)
[2021-11-19] MEDS: famotidine 20 mg/2 mL INJ IVP (09:56)
[2021-11-19] MEDS: diphenhydrAMINE 50 mg/mL SDV 1mL 25 MG IV (09:58)
--- NOTE | 2021-11-19 13:29 | ONCRAD TMN_ITS ---
Radiation Oncology Treatment Management Note Patient Name: Marbella Alfaro Date of : 1950 Date of Service: 11/19/2021 Attending Physician: Diony Oneill M.D. 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 She was identified to have a 4.8 cm x 3.6 cm x 3.8 cm left upper-lobe mass by a low-dose CT lung cancer screening. A bronchoscopy with endobronchial ultrasound-guided transbronchial needle biopsy was performed by Bimal Aranda M.D. on July 16, 2021. Biopsies obtained from the left hilar mass demonstrated atypical cell clusters but was not diagnostic for malignancy. A PET CT ordered on August 05, [id number] (independently visualized in [facility]) confirmed metabolic activity within the left superior hilum and AP window regions (SUV 27.7) without metastatic disease. A left-sided [place] procedure with biopsy of the AP window mass was completed on September 09 by Wallace Lugo M.D. 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 The patient has received 30 Gy of a prescribed 60 [place] with an intensity modulated radiotherapy plan utilizing a step and shoot treatment technique. She has been prescribed carboplatin (AUC 2) and paclitaxel (50 mg/m???) weekly during therapy. Upon review of systems, she denied pulmonary symptoms. On physical examination, the patient weighed 115 lbs. Her temperature was 98.7 ???F and the blood pressure was 148/80 mmHg. The pulse was 104 bpm and her respiratory rate was 18. Oxygen saturation while breathing room air was 95%. There was no erythema within the treatment tamayo. Auscultation of the posterior lung tamayo identified expiratory wheezes. Continue thoracic radiotherapy as prescribed. Signed by: Dr. Diony Oneill 11/19/2021 1:28:32 PM
[2021-11-25] MEDS: ondansetron 2 mg/ML SDV 2 mL 8 MG IV (13:20)
[2021-11-25 13:21] LABS: Basophils % 0.8 %; Eosinophils # 0.1 10^3/uL (0.0-0.8); Eosinophils % 2.5 %; Hematocrit 37.4 % (37.0-47.0); Hemoglobin 12.1 g/dL (11.5-15.3); Lymphocytes # 0.4 10^3/uL (0.8-4.8); Lymphocytes % 8.9 %; Mean Corpuscular HGB Conc 32.4 g/dL (30.0-36.0); Mean Corpuscular Hemoglobin 29.7 pg (28.0-34.0); Mean Corpuscular Volume 91.7 fl (81-99); Mean Platelet Volume 9.6 fL (7.4-10.4); Monocytes # 0.3 10^3/uL (0.2-0.9); Monocytes % 6.9 %; Neutrophils # 3.16 10^3/uL (1.8-7.7); Neutrophils % 80.1 %; Nucleated Red Blood Cells % 0 %; Platelet Count 127 10^3/cmm (130-400); Red Blood Count 4.08 10^6/uL (4.1-5.3); Red Cell Distribution Width 14.6 % (12.1-15.1); White Blood Count 3.9 10^3/uL (4.0-10.0)
[2021-11-25] MEDS: sodium chloride 0.9% 1,000 ML 999 ML IV (13:25)
[2021-11-25 13:43] LABS: Alanine Aminotransferase 25 U/L (0-33); Albumin Level 3.9 g/dL (3.5-5.2); Alkaline Phosphatase 99 IU/L (35-105); Anion Gap 15.7 (5-19); Aspartate Amino Transferase 16 U/L (0-32); Blood Urea Nitrogen 13 mg/dL (8-23); Calcium 8.7 mg/dL (8.5-10.5); Carbon Dioxide 26 mmol/L (22-29); Chloride 101 mmol/L (98-107); Globulin 2.2 g/dL (1.3-4.6); Glomerular Filtration Rate 98.8 mL/min (90-130); Glucose 131 mg/dL (65-115); Osmolality Calculated 290 mOsm/kg (285-295); Potassium 3.7 mmol/L (3.5-5.1); Sodium 139 mmol/L (136-145); Total Bilirubin 0.6 mg/dL (0.15-1.2); Total Protein 6.1 g/dL (6.6-8.7)
[2021-11-26] MEDS: sodium chloride 0.9% 1,000 ML 999 ML IV (10:05)
--- NOTE | 2021-11-26 11:36 | ONCRAD TMN_ITS ---
Radiation Oncology Treatment Management Note Patient Name: Marbella Alfaro Date of : 1950 Date of Service: 11/26/2021 Attending Physician: Diony Oneill M.D. 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 She was identified to have a 4.8 cm x 3.6 cm x 3.8 cm left upper-lobe mass by a low-dose CT lung cancer screening. A bronchoscopy with endobronchial ultrasound-guided transbronchial needle biopsy was performed by Bimal Aranda M.D. on July 16, 2021. Biopsies obtained from the left hilar mass demonstrated atypical cell clusters but was not diagnostic for malignancy. A PET CT ordered on August 05, [id number] (independently visualized in [facility]) confirmed metabolic activity within the left superior hilum and AP window regions (SUV 27.7) without metastatic disease. A left-sided [place] procedure with biopsy of the AP window mass was completed on September 09 by Wallace Lugo M.D. 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 The patient has received 40 Gy of a prescribed 60 [place] with an intensity modulated radiotherapy plan utilizing a step and shoot treatment technique. She has been prescribed carboplatin (AUC 2) and paclitaxel (50 mg/m???) weekly during therapy. Upon review of systems, she denied pulmonary symptoms. On physical examination, the patient weighed 117 lbs. Her temperature was 97.5 ???F and the blood pressure was 159/78 mmHg. The pulse was 92 bpm and her respiratory rate was 18. Oxygen saturation while breathing room air was 95%. There was no erythema within the treatment tamayo. Auscultation of the posterior lung tamayo identified bilateral decreased breath sounds. Continue thoracic radiotherapy as planned. Signed by: Dr. Diony Oneill 11/26/2021 11:34:22 AM
--- NOTE | 2021-11-26 18:25 | ONC FU_ITS ---
Dr. Sal follow up note Patient: Marbella Alfaro Unit #: [id number]: 1950 Dicatated By: Colt Sal M.D.Date of Visit:Nov 26, 2021 Onc Med Follow-up/Prog Note History of Present Illness: Ms. Marbella Alfaro, 71-year-old female with longstanding history of smoking, underwent CT lung screening on July 08, 2021, which showed ill-defined soft tissue mass centered within left upper lobe extending into AP window, mass measured 4.8 x 3.6 x 3.8 cm, marked emphysema, bilateral lower lobe calcified granulomata, patient underwent CT PET scan on August 05, 2021 which showed mass identified involving left superior hilum/AP window area measuring up to 3.3 x 3.5 cm with SUV 27.7, no other abnormality seen Patient underwent bronchoscopy/EBUS but pathology was inconclusive, subsequently patient was referred to Dr. 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 Her first cycle was on October 29, 2021. Came for follow-up, denies any specific complaint except generalized weakness and fatigue, painful swallowing, which is somewhat under control with pain medication prescribed by radiation oncology, as per patient and family she did not drink enough fluids, felt better with IV fluid yesterday and requesting hydration today too. No hemoptysis or hematemesis, no nausea or vomiting but mild indigestion, still smoking about pack a day. Patient said she is not feeling strong enough to take chemotherapy today and moreover she did not take her premedication with steroid last night either, but continue with daily radiation therapy. Medications: Breo Ellipta 1 Inhalation (of 100-25 mcg/inh) Aerosol Powder, Breath Activated Inhalation daily, Cholecalciferol 1 Capsule (of 50 mcg ) Oral daily, HYDROcodone-Acetaminophen 1 - 2 Tablet (of 5-325 mg) Tablet Oral q 4 to 6 hours PRN, Loratadine 1 Tablet (of 10 mg) Oral daily, Lovastatin 1 Tablet (of 20 mg) Oral daily, Myrbetriq 1 Tablet (of 25 mg) Tablet SR 24 HR Oral daily, Omeprazole 1 Capsule (of 40 mg) Capsule Delayed Release Oral daily, Prochlorperazine Maleate (5 mg) Tablet Oral Take as Directed, Spiriva HandiHaler 1 Capsule (of 18 mcg) Inhalation daily Allergies: No Known Allergies. Review of Systems: Review of Systems is not available for this patient. Vital Signs: Performed on Nov 26, 2021 09:30 Height - 61.00 in Weight - 117.0 lbs (HIGH) BSA - 1.50 sq.m BMI - 22.11 Temperature - 97.5 F (LOW) Pulse - 92 /min Respiration - 18 /min BP - 159/78 mm(hg) (HIGH) O2 Sat - 90 % (LOW) Pain - 5 Fatigue - 3 Performance Status: 1 - No physically strenuous activity, but ambulatory and able to carry out light or sedentary work (e.g. office work, light house work). (ECOG) Physical Examination: ENMT - No mouth sores, no thrush, no jaundice but dry oral mucosa, Respiratory - Lungs are clear to auscultation, Cardiovascular - Regular rate and rhythm of heart, Abdomen - Soft, bowel sounds present, Extremities - No visible edema. Lab/Imaging: Test performed on Nov 26, 2021 09:48 Creatinine 0.6 mg/dL Cr Clearance (Est) 72.97 mL/min Impression: Giant cell carcinoma involving AP window lymph nodes per mediastinoscopy done on September 09, 2021 Immunohistochemistry confirmed Ki-67 60%,, PD-L1 more than 50% CT PET scan done on August 05, 2021 showed 3.3 x 3.5 cm mass involving left superior hilum/AP window area with SUV of 27.7. No other abnormal node uptake is seen, no evidence of distant metastatic disease MRI scan of the head done on October 14, 2021 shows no evidence of brain mets, Clinically staged 3A (T2bN2) CT lung screening done on July 08, 2021 shows ill-defined soft tissue mass within the left upper lobe extending into the AP window measuring 4.8 x 3.6 x 3.8 cm, marked emphysema, Patient is on home oxygen Plan: Discussed with patient regarding her labs white blood count 3.9 hemoglobin 12.1 hematocrit 37.4 platelets 127,000 CMP within normal limit except glucose 131 Clinically, patient is in mild to moderate distress due to chemoradiation induced esophagitis, patient is on pain medication prescribed by radiation oncology, patient is having difficulty with maintaining hydration, will proceed with normal saline 500 cc if tolerated we will repeat and patient was advised to do her best to maintain hydration in the meantime we will continue with IV fluids on as-needed basis. And if patient feels better tonight, she will take her premedication with steroids and will consider next weekly dose of chemotherapy with carboplatin/Taxol concurrent with radiation therapy in the morning otherwise we will monitor her on daily basis and once patient feel comfortable, will consider next dose of weekly carboplatin/Taxol concurrent with radiation. Otherwise she return to clinic in 1 week after next dose of chemotherapy with carboplatin/Taxol with CBC CMP Patient was advised to maintain good oral hygiene and she was also advised to quit smoking and was offered any assistance she may need Signed By: Colt Sal M.D. <<Signature on File>>
[2021-11-27] MEDS: sodium chloride 0.9% 1,000 ML 999 ML IV (12:10)
[2021-11-28 10:12] LABS: Basophils % 0.3 %; Hematocrit 36.7 % (37.0-47.0); Hemoglobin 11.9 g/dL (11.5-15.3); Lymphocytes # 0.1 10^3/uL (0.8-4.8); Lymphocytes % 3.1 %; Mean Corpuscular HGB Conc 32.4 g/dL (30.0-36.0); Mean Corpuscular Hemoglobin 29.5 pg (28.0-34.0); Mean Corpuscular Volume 91.1 fl (81-99); Mean Platelet Volume 9.4 fL (7.4-10.4); Monocytes # 0.1 10^3/uL (0.2-0.9); Monocytes % 1.7 %; Neutrophils # 3.37 10^3/uL (1.8-7.7); Neutrophils % 94.6 %; Nucleated Red Blood Cells % 0 %; Platelet Count 139 10^3/cmm (130-400); Red Blood Count 4.03 10^6/uL (4.1-5.3); Red Cell Distribution Width 15.2 % (12.1-15.1); White Blood Count 3.6 10^3/uL (4.0-10.0)
[2021-11-28 10:55] LABS: Alanine Aminotransferase 35 U/L (0-33); Albumin Level 3.9 g/dL (3.5-5.2); Alkaline Phosphatase 102 IU/L (35-105); Anion Gap 19.9 (5-19); Aspartate Amino Transferase 23 U/L (0-32); Blood Urea Nitrogen 13 mg/dL (8-23); Calcium 8.5 mg/dL (8.5-10.5); Carbon Dioxide 21 mmol/L (22-29); Chloride 104 mmol/L (98-107); Globulin 2.5 g/dL (1.3-4.6); Glucose 192 mg/dL (65-115); Osmolality Calculated 297 mOsm/kg (285-295); Potassium 3.9 mmol/L (3.5-5.1); Sodium 141 mmol/L (136-145); Total Bilirubin 0.4 mg/dL (0.15-1.2); Total Protein 6.4 g/dL (6.6-8.7)
[2021-11-28] MEDS: diphenhydrAMINE 50 mg/mL SDV 1mL 25 MG IV (11:45)
[2021-11-28] MEDS: famotidine 20 mg/2 mL INJ IVP (11:48)
[2021-11-28] MEDS: sodium chloride 0.9% 250 ML 75 ML IV (11:50)
[2021-11-28] MEDS: palonosetron 0.25 mg/5 mL SDV IV (11:55)
--- NOTE | 2021-12-03 13:17 | ONCRAD TMN_ITS ---
Radiation Oncology Treatment Management Note Patient Name: Marbella Alfaro Date of : 1950 Date of Service: 12/03/2021 Attending Physician: Diony Oneill M.D. 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 She was identified to have a 4.8 cm x 3.6 cm x 3.8 cm left upper-lobe mass by a low-dose CT lung cancer screening. A bronchoscopy with endobronchial ultrasound-guided transbronchial needle biopsy was performed by Bimal Aranda M.D. on July 16, 2021. Biopsies obtained from the left hilar mass demonstrated atypical cell clusters but was not diagnostic for malignancy. A PET CT ordered on August 05, [id number] (independently visualized in [facility]) confirmed metabolic activity within the left superior hilum and AP window regions (SUV 27.7) without metastatic disease. A left-sided [place] procedure with biopsy of the AP window mass was completed on September 09 by Wallace Lugo M.D. 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 The patient has received 50 Gy of a prescribed 60 [place] with an intensity modulated radiotherapy plan utilizing a step and shoot treatment technique. She has been prescribed carboplatin (AUC 2) and paclitaxel (50 mg/m???) weekly during therapy. Upon review of systems, she denied pulmonary symptoms. On physical examination, the patient weighed 115 lbs. Her temperature was 98 ???F and the blood pressure was 137/73 mmHg. The pulse was 81 bpm and her respiratory rate was 16. Oxygen saturation while breathing room air was 99%. There was no erythema within the treatment tamayo. Auscultation of the posterior lung tamayo identified decreased breath sounds. Continue thoracic radiotherapy as prescribed. Signed by: Dr. Diony Oneill 12/03/2021 1:16:44 PM
[2021-12-04 13:16] LABS: Basophils % 0.8 %; Eosinophils # 0.1 10^3/uL (0.0-0.8); Eosinophils % 1.9 %; Hematocrit 36.3 % (37.0-47.0); Hemoglobin 11.8 g/dL (11.5-15.3); Lymphocytes # 0.3 10^3/uL (0.8-4.8); Mean Corpuscular HGB Conc 32.5 g/dL (30.0-36.0); Mean Corpuscular Hemoglobin 29.9 pg (28.0-34.0); Mean Corpuscular Volume 91.9 fl (81-99); Mean Platelet Volume 9.7 fL (7.4-10.4); Monocytes # 0.2 10^3/uL (0.2-0.9); Monocytes % 7.7 %; Neutrophils # 1.98 10^3/uL (1.8-7.7); Neutrophils % 75.8 %; Nucleated Red Blood Cells % 0 %; Platelet Count 123 10^3/cmm (130-400); Red Blood Count 3.95 10^6/uL (4.1-5.3); Red Cell Distribution Width 15.8 % (12.1-15.1); White Blood Count 2.6 10^3/uL (4.0-10.0)
[2021-12-04 13:54] LABS: Alanine Aminotransferase 16 U/L (0-33); Albumin Level 3.9 g/dL (3.5-5.2); Alkaline Phosphatase 88 IU/L (35-105); Aspartate Amino Transferase 13 U/L (0-32); Blood Urea Nitrogen 11 mg/dL (8-23); Calcium 9.5 mg/dL (8.5-10.5); Carbon Dioxide 23 mmol/L (22-29); Chloride 103 mmol/L (98-107); Globulin 2.4 g/dL (1.3-4.6); Glucose 77 mg/dL (65-115); Osmolality Calculated 286 mOsm/kg (285-295); Sodium 139 mmol/L (136-145); Total Bilirubin 0.5 mg/dL (0.15-1.2); Total Protein 6.3 g/dL (6.6-8.7)
--- NOTE | 2021-12-05 10:04 | ONC FU_ITS ---
Dr. Sal follow up note Patient: Marbella Alfaro Unit #: [id number]: 1950 Dicatated By: Colt Sal M.D.Date of Visit:Dec 05, 2021 Onc Med Follow-up/Prog Note History of Present Illness: Ms. Marbella Alfaro, 71-year-old female with longstanding history of smoking, underwent CT lung screening on July 08, 2021, which showed ill-defined soft tissue mass centered within left upper lobe extending into AP window, mass measured 4.8 x 3.6 x 3.8 cm, marked emphysema, bilateral lower lobe calcified granulomata, patient underwent CT PET scan on August 05, 2021 which showed mass identified involving left superior hilum/AP window area measuring up to 3.3 x 3.5 cm with SUV 27.7, no other abnormality seen Patient underwent bronchoscopy/EBUS but pathology was inconclusive, subsequently patient was referred to Dr. 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 Her first cycle was on October 29, 2021. Came for follow-up, denies any specific complaints except mild indigestion but no nausea or vomiting, no diarrhea or constipation, no melena or hematochezia, no hemoptysis hematemesis, no shortness of breath or palpitation, tolerating combined chemoradiation with weekly carboplatin/Taxol well, today will be her last dose of weekly chemotherapy, as patient will conclude her radiation therapy on coming Thursday Medications: Breo Ellipta 1 Inhalation (of 100-25 mcg/inh) Aerosol Powder, Breath Activated Inhalation daily, Cholecalciferol 1 Capsule (of 50 mcg ) Oral daily, HYDROcodone-Acetaminophen 1 - 2 Tablet (of 5-325 mg) Tablet Oral q 4 to 6 hours PRN, Loratadine 1 Tablet (of 10 mg) Oral daily, Lovastatin 1 Tablet (of 20 mg) Oral daily, Myrbetriq 1 Tablet (of 25 mg) Tablet SR 24 HR Oral daily, Omeprazole 1 Capsule (of 40 mg) Capsule Delayed Release Oral daily, Prochlorperazine Maleate (5 mg) Tablet Oral Take as Directed, Spiriva HandiHaler 1 Capsule (of 18 mcg) Inhalation daily Allergies: No Known Allergies. Review of Systems: Review of Systems is not available for this patient. Vital Signs: Vitals are not available for this patient. Performance Status: 0 - Fully active, able to carry on all predisease activities without restrictions. (ECOG) Physical Examination: ENMT - No mouth sores, no thrush, no jaundice, Respiratory - Lungs are clear to auscultation, Cardiovascular - Regular rate and rhythm of heart, Abdomen - Soft, bowel sounds present, Extremities - No visible edema. Lab/Imaging: Test performed on Dec 04, 2021 13:00 Sodium 139 mmol/L Potassium 4.0 mmol/L Chloride 103 mmol/L CO2 23 mmol/L Anion Gap 17.0 BUN 11 mg/dL Creatinine 0.5 mg/dL Cr Clearance (Est) 87.5700 mL/min eGFR 122.0 mL/min Glucose 77 mg/dL Osmolality - Calculated 286 mOsm/kg Calcium 9.5 mg/dL Protein, Total 6.3 g/dL Albumin 3.9 g/dL Globulin 2.4 g/dL Bilirubin, Total 0.5 mg/dL ALT (SGPT) 16 U/L AST (SGOT) 13 U/L Alkaline Phosphatase 88 IU/L WBC 2.6 10 3/uL RBC 3.95 10 6/uL HGB 11.8 g/dL HCT 36.3 % MCV 91.9 fl MCH 29.9 pg MCHC 32.5 g/dL RDW 15.8 % Platelet Count 123 10 3/cmm MPV 9.7 fL Neutrophils 1.98 10 3/uL Lymphocytes 0.3 10 3/uL Monocytes 0.2 10 3/uL Eosinophils 0.1 10 3/uL Basophils 0.0 10 3/uL Neutrophil % 75.8 % Lymphocyte % 13.0 % Monocyte % 7.7 % Eosinophil % 1.9 % Basophils % 0.8 % NRBC % 0 % Impression: Giant cell carcinoma involving AP window lymph nodes per mediastinoscopy done on September 09, 2021 Immunohistochemistry confirmed Ki-67 60%,, PD-L1 more than 50% CT PET scan done on August 05, 2021 showed 3.3 x 3.5 cm mass involving left superior hilum/AP window area with SUV of 27.7. No other abnormal node uptake is seen, no evidence of distant metastatic disease MRI scan of the head done on October 14, 2021 shows no evidence of brain mets, Clinically staged 3A (T2bN2) CT lung screening done on July 08, 2021 shows ill-defined soft tissue mass within the left upper lobe extending into the AP window measuring 4.8 x 3.6 x 3.8 cm, marked emphysema, Patient is on home oxygen Plan: Discussed with patient regarding her labs white blood count 2.6 hemoglobin 11.8 g hematocrit 36.3 platelets 123,000 ANC 1900 CMP within normal limits Clinically, patient is doing well with no new signs symptoms such of disease progression, tolerating combined chemoradiation well but with expected side effects e.g. progressive leukopenia. We will proceed with her last dose of weekly carboplatin and Taxol concurrent with radiation therapy as patient will conclude her radiation therapy on coming Thursday. Because of progressive leukopenia, will consider Neupogen in the morning and another dose on Thursday and she return to clinic in 1 week with CBC., Later on, we will discuss with her regarding role of maintenance immunotherapy. Signed By: Colt Sal M.D. <<Signature on File>>
[2021-12-05] MEDS: diphenhydrAMINE 50 mg/mL SDV 1mL 25 MG IV (10:33)
[2021-12-05] MEDS: famotidine 20 mg/2 mL INJ IVP (10:34)
[2021-12-05] MEDS: palonosetron 0.25 mg/5 mL SDV IV (10:35)
[2021-12-05] MEDS: sodium chloride 0.9% 250 ML 999 ML IV (10:36)
== END 2021-12-09 23:59 | disposition home or self-care (01) ==
LOC: ONCMED 06:50
PROVIDERS: Internal Medicine Hematology & Oncology; Absent Provider Radiology Radiation Oncology; PCP Family Medicine; Visit Provider Radiology Radiation Oncology
DX: Z51.0 Encounter for antineoplastic radiation therapy (principal); Z51.11 Encounter for antineoplastic chemotherapy; C34.82 Malignant neoplasm of overlapping sites of left bronchus and lung; J43.9 Emphysema, unspecified; Z99.81 Dependence on supplemental oxygen
CPT/HCPCS: 36591; 77336; 77386; 80053; 85025; 96360; 96361; 96365; 96367; 96368; 96372; 96375; 96413; 96417; 99215; J1100; J1200; J2405; J2469; J3490; J7030; J7040; J7050; J9045; J9267; Q5101

== ENCOUNTER 2022-01-06 06:53 | Outpatient (RCR) | payer MEDICARE, MEDICAID, SELFPAY ==
--- NOTE | 2021-12-10 13:01 | N.ONRD TS_ITS ---
Radiation OncologyTreatment Summary Patient Name: Marbella Alfaro Date of : 1950 Date of Service: 12/10/2021 Attending Physician: Diony Oneill M.D. 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 She was identified to have a 4.8 cm x 3.6 cm x 3.8 cm left upper-lobe mass by a low-dose CT lung cancer screening. A bronchoscopy with endobronchial ultrasound-guided transbronchial needle biopsy was performed by Bmial Aranda M.D. on July 16, 2021. Biopsies obtained from the left hilar mass demonstrated atypical cell clusters but was not diagnostic for malignancy. A PET CT ordered on August 05, [id number] (independently visualized in [facility]) confirmed metabolic activity within the left superior hilum and AP window regions (SUV 27.7) without metastatic disease. A left-sided Constable procedure with biopsy of the AP window mass was completed on September 09 by Wallace Lugo M.D. 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 Thoracic radiation therapy was delivered between the dates of October 28, 2021 through December 10, 2021. A prescribed dose of 60 Gy was delivered in 30 fractions encompassing 44 elapsed days. The left hilar mass and mediastinal lymphadenopathy were treated utilizing an intensity modulated radiotherapy plan with a step and shoot treatment technique. The plan required seven gantry angles (5???, 40???, 75???, 110???, 145???, 180???, and 330???) replicating a partial arc. The collimator rotation 0???. The field sizes spanned between 10.4 cm x 11.8 cm to 12.8 cm x 12 cm. The SSDs measured a minimum of 85.3 cm to a of maximum of 89.7 cm. The ports delivered 142 MU, 158 MU, 141 MU, 128 MU, 110 MU, 135 MU, and 126 MU corresponding to the gantry angles described. All treatments were performed with the [employer] linear accelerator and an isocentric technique. The dose was calculated by Anisotropic Analytic Algorithm. A photon energy of 6 MV was prescribed with the plan normalized to deliver 100% of the prescription dose to 95% of the planning target volume. She was prescribed Carboplatin (AUC 2) and Paclitaxel (50 mg/m???) weekly during radiotherapy under the supervision of Colt Sal M.D (October 29, 2021 through December 05, 2021). Signed by: Dr. Diony Oneill 12/10/2021 1:00:05 PM
[2021-12-10 14:04] LABS: Basophils # 0.1 10^3/uL (0.0-0.1); Basophils % 3.4 %; Eosinophils % 1.1 %; Hematocrit 33.4 % (37.0-47.0); Hemoglobin 10.8 g/dL (11.5-15.3); Lymphocytes # 0.3 10^3/uL (0.8-4.8); Lymphocytes % 11.3 %; Mean Corpuscular HGB Conc 32.3 g/dL (30.0-36.0); Mean Corpuscular Hemoglobin 29.8 pg (28.0-34.0); Mean Platelet Volume 10.4 fL (7.4-10.4); Monocytes # 0.2 10^3/uL (0.2-0.9); Monocytes % 9.1 %; Neutrophils # 1.98 10^3/uL (1.8-7.7); Neutrophils % 74.7 %; Nucleated Red Blood Cells % 0 %; Platelet Count 140 10^3/cmm (130-400); Red Blood Count 3.63 10^6/uL (4.1-5.3); White Blood Count 2.7 10^3/uL (4.0-10.0)
[2021-12-10 14:58] LABS: Slide Review Slide Review Perform
--- NOTE | 2021-12-17 08:43 | ONC FU_ITS ---
Dr. Sal follow up note Patient: Marbella Alfaro Unit #: [id number]: 1950 Dicatated By: Colt Sal M.D.Date of Visit:Dec 16, 2021 Onc Med Follow-up/Prog Note History of Present Illness: Ms. Marbella Alfaro, 71-year-old female with longstanding history of smoking, underwent CT lung screening on July 08, 2021, which showed ill-defined soft tissue mass centered within left upper lobe extending into AP window, mass measured 4.8 x 3.6 x 3.8 cm, marked emphysema, bilateral lower lobe calcified granulomata, patient underwent CT PET scan on August 05, 2021 which showed mass identified involving left superior hilum/AP window area measuring up to 3.3 x 3.5 cm with SUV 27.7, no other abnormality seen Patient underwent bronchoscopy/EBUS but pathology was inconclusive, subsequently patient was referred to Dr. 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 Her first cycle was on October 29, 2021.And concluded combined chemoradiation on December 10, 2021 Came for follow-up, complaining of generalized weakness and fatigue, no fever chills, no nausea or vomiting, no diarrhea or constipation, chronic cough more productive in the morning. Still smoke about a pack a day. Patient has concluded combined chemoradiation on December 10, 2021, now recovering Medications: Breo Ellipta 1 Inhalation (of 100-25 mcg/inh) Aerosol Powder, Breath Activated Inhalation daily, Cholecalciferol 1 Capsule (of 50 mcg ) Oral daily, HYDROcodone-Acetaminophen 1 - 2 Tablet (of 5-325 mg) Tablet Oral q 4 to 6 hours PRN, Loratadine 1 Tablet (of 10 mg) Oral daily, Lovastatin 1 Tablet (of 20 mg) Oral daily, Myrbetriq 1 Tablet (of 25 mg) Tablet SR 24 HR Oral daily, Omeprazole 1 Capsule (of 40 mg) Capsule Delayed Release Oral daily, Prochlorperazine Maleate (5 mg) Tablet Oral Take as Directed, Spiriva HandiHaler 1 Capsule (of 18 mcg) Inhalation daily Allergies: No Known Allergies. Review of Systems: Review of Systems is not available for this patient. Vital Signs: Performed on Dec 16, 2021 08:35 Height - 61.00 in Weight - 114.4 lbs (HIGH) BSA - 1.49 sq.m BMI - 21.62 Temperature - 98.6 F Pulse - 109 /min (HIGH) Respiration - 18 /min BP - 147/72 mm(hg) (HIGH) O2 Sat - 93 % (LOW) Pain - 0 Fatigue - 5 Performance Status: 1 - No physically strenuous activity, but ambulatory and able to carry out light or sedentary work (e.g. office work, light house work). (ECOG) Physical Examination: ENMT - No mouth sores, no thrush, no jaundice, Respiratory - Poor air entry, mild wheezing bilaterally, Cardiovascular - Regular rate and rhythm of heart, Abdomen - Soft, bowel sounds present, Extremities - No visible edema. Lab/Imaging: Test performed on Dec 04, 2021 13:00 Sodium 139 mmol/L Potassium 4.0 mmol/L Chloride 103 mmol/L CO2 23 mmol/L Anion Gap 17.0 BUN 11 mg/dL Creatinine 0.5 mg/dL Cr Clearance (Est) 87.5700 mL/min eGFR 122.0 mL/min Glucose 77 mg/dL Osmolality - Calculated 286 mOsm/kg Calcium 9.5 mg/dL Protein, Total 6.3 g/dL Albumin 3.9 g/dL Globulin 2.4 g/dL Bilirubin, Total 0.5 mg/dL ALT (SGPT) 16 U/L AST (SGOT) 13 U/L Alkaline Phosphatase 88 IU/L WBC 2.6 10 3/uL RBC 3.95 10 6/uL HGB 11.8 g/dL HCT 36.3 % MCV 91.9 fl MCH 29.9 pg MCHC 32.5 g/dL RDW 15.8 % Platelet Count 123 10 3/cmm MPV 9.7 fL Neutrophils 1.98 10 3/uL Lymphocytes 0.3 10 3/uL Monocytes 0.2 10 3/uL Eosinophils 0.1 10 3/uL Basophils 0.0 10 3/uL Neutrophil % 75.8 % Lymphocyte % 13.0 % Monocyte % 7.7 % Eosinophil % 1.9 % Basophils % 0.8 % NRBC % 0 % Impression: Giant cell carcinoma involving AP window lymph nodes per mediastinoscopy done on September 09, 2021 Immunohistochemistry confirmed Ki-67 60%,, PD-L1 more than 50% CT PET scan done on August 05, 2021 showed 3.3 x 3.5 cm mass involving left superior hilum/AP window area with SUV of 27.7. No other abnormal node uptake is seen, no evidence of distant metastatic disease MRI scan of the head done on October 14, 2021 shows no evidence of brain mets, Clinically staged 3A (T2bN2), Status post combined chemoradiation with weekly carboplatin/Taxol concluded on December 10, 2021 CT lung screening done on July 08, 2021 shows ill-defined soft tissue mass within the left upper lobe extending into the AP window measuring 4.8 x 3.6 x 3.8 cm, marked emphysema, Patient is on home oxygen Plan: Discussed with patient regarding her labs done on December 10, 2021 white blood count 2.7 hemoglobin 0.8 hematocrit 33.4 platelets 140,000 ANC 1980 Clinically, patient doing well with no new signs symptoms Suggestive of disease progression, patient has completed combined chemoradiation with weekly carboplatin/Taxol on December,, discussed about full dose chemotherapy with, carboplatin/Taxol every 3 weeks x2 but patient declined because of related side effect now maintenance therapy with durvalumab under consideration, patient wants to review drug information, patient was given information regarding durvalumab maintenance therapy. In the meantime we will schedule her for follow-up CT scan of the chest to be done around 3 weeks after conclusion of chemoradiation to assess further response, in the meantime patient, will review information regarding maintenance immunotherapy so she will return to clinic after CT scan of chest done with CBC CMP and for further discussion regarding CT scan of chest finding, if it shows persistent disease, may encourage her to consider 2 cycles of full dose carboplatin/Taxol, followed by maintenance therapy with durvalumab. Patient still smoke about pack a day, she was advised to quit smoking and was offered any assistance she may need. As far as chronic cough is concerned probably due to chronic smoking as well as dry hot air, patient was advised to maintain hydration and use humidifier in the room and also consider steam inhalation and gargles and of course advised to quit smoking., If no improvement, may consider referral to pulmonology for evaluation Signed By: Colt Sal M.D. <<Signature on File>>
[2021-12-30 08:33] LABS: Eosinophils # 0.2 10^3/uL (0.0-0.8); Eosinophils % 3.7 %; Hematocrit 37.3 % (37.0-47.0); Hemoglobin 11.7 g/dL (11.5-15.3); Lymphocytes # 1.1 10^3/uL (0.8-4.8); Lymphocytes % 26.4 %; Mean Corpuscular HGB Conc 31.4 g/dL (30.0-36.0); Mean Corpuscular Hemoglobin 30.3 pg (28.0-34.0); Mean Corpuscular Volume 96.6 fl (81-99); Mean Platelet Volume 9.6 fL (7.4-10.4); Monocytes # 0.5 10^3/uL (0.2-0.9); Monocytes % 12.7 %; Neutrophils # 2.29 10^3/uL (1.8-7.7); Nucleated Red Blood Cells % 0 %; Platelet Count 283 10^3/cmm (130-400); Red Blood Count 3.86 10^6/uL (4.1-5.3); Red Cell Distribution Width 18.6 % (12.1-15.1)
--- NOTE | 2021-12-30 08:46 | CT_ITS ---
WS: [id number] CT CHEST TECHNIQUE: Contrast enhanced CT of the chest with coronal and sagittal reformatted images. CLINICAL INFORMATION: MALIGNANT NEOPLASM OF UNSPECIFIED PART OF LEFT BRONCHUS OR L COMPARISON: CT July 08, 2021 and PET/CT August 05, 2021 DLP: 504.[address] scans at [facility] use at least one of these dose optimization techniques: automated e xposure control; mA and/or kV adjustment per patient size (includes targeted exams where dose is matc hed to clinical indication); or iterative reconstruction. FINDINGS: Again seen is the previously enhancing LEFT AP window mass measuring 3.5 x 3.7 x 4.6 cm AP by transve rse by craniocaudal. This measures slightly smaller compared to the CT lung screening July 08, 2021 and PET/CT August 05, 2021. This measures slightly smaller compared to the radiotherapy planning CT October 22, 2021. Normal caliber thoracic aorta. Aortic calcification. Normal thyroid gland. No a xillary lymphadenopathy. No new mediastinal or hilar lymphadenopathy. Adrenal glands are normal. Splenic granulomas. Enhancing lesion in the spleen likely hemangioma. Smal l bilateral cortical cysts. Normal GE junction. Moderate thoracic kyphosis. Anterior wedging in the mid thoracic spine. Moderate chronic emphysematou s changes. A few bilateral calcified granulomas. CT/CT chest w con* [id number] IMPRESSION: 1. Again seen is the heterogeneously enhancing LEFT AP window mass measuring 3 .5 x 3.7 x 4.6 cm today this measures a few millimeters smaller compared to the prior studies for example measuring 3.6 x 3.8 x 4.8 cm on the initial lung scr eening 2. Otherwise no significant changes compared to previous. 3. No new mediastinal or hilar lymphadenopathy. 4. No axillary lymphadenopathy. 5. Chronic emphysematous changes with a few small calcified granulomas.
[2021-12-30 08:55] LABS: Alanine Aminotransferase 12 U/L (0-33); Alkaline Phosphatase 96 IU/L (35-105); Anion Gap 14.6 (5-19); Aspartate Amino Transferase 15 U/L (0-32); Blood Urea Nitrogen 14 mg/dL (8-23); Calcium 9.4 mg/dL (8.5-10.5); Carbon Dioxide 24 mmol/L (22-29); Chloride 107 mmol/L (98-107); Globulin 2.6 g/dL (1.3-4.6); Glucose 125 mg/dL (65-115); Osmolality Calculated 296 mOsm/kg (285-295); Potassium 3.6 mmol/L (3.5-5.1); Sodium 142 mmol/L (136-145); Total Bilirubin 0.2 mg/dL (0.15-1.2); Total Protein 6.6 g/dL (6.6-8.7)
[2021-12-30] MEDS: iohexol 300 mg/mL 100 mL Btl IV (09:19)
--- NOTE | 2022-01-08 17:18 | ONC FU_ITS ---
Dr. Sal follow up note Patient: Marbella Alfaro Unit #: [id number]: 1950 Dicatated By: Colt Sal M.D.Date of Visit:Jan 06, 2022 Onc Med Follow-up/Prog Note History of Present Illness: Ms. Marbella Alfaro, 71-year-old female with longstanding history of smoking, underwent CT lung screening on July 08, 2021, which showed ill-defined soft tissue mass centered within left upper lobe extending into AP window, mass measured 4.8 x 3.6 x 3.8 cm, marked emphysema, bilateral lower lobe calcified granulomata, patient underwent CT PET scan on August 05, 2021 which showed mass identified involving left superior hilum/AP window area measuring up to 3.3 x 3.5 cm with SUV 27.7, no other abnormality seen Patient underwent bronchoscopy/EBUS but pathology was inconclusive, subsequently patient was referred to Dr. 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 Her first cycle was on October 29, 2021.And concluded combined chemoradiation on December 10, 2021 Follow-up CT scan of chest done on December 30, 2021 shows again seen is a heterogeneously enhancing left AP window mass measuring 3.5 x 3.7 x 4.6 cm compared to 3.6 x 3.8 x 4.8 cm at the time of diagnosis. Otherwise no significant changes compared to previous exam no new mediastinal or hilar lymphadenopathy, chronic emphysematous changes with a few small calcified granulomas. Came for follow-up, denies any specific complaints, no fever chills, no nausea or vomiting, no diarrhea constipation, no hemoptysis or hematemesis, still smoking about pack a day. Patient has completed combined chemoradiation with weekly carboplatin/Taxol subsequently underwent follow-up CT scan of chest to assess the response but unfortunately his follow-up CT scan of chest did not show significant improvement rather stable left lung mass. Patient is here to discuss further treatment options Medications: Breo Ellipta 1 Inhalation (of 100-25 mcg/inh) Aerosol Powder, Breath Activated Inhalation daily, Cholecalciferol 1 Capsule (of 50 mcg ) Oral daily, HYDROcodone-Acetaminophen 1 - 2 Tablet (of 5-325 mg) Tablet Oral q 4 to 6 hours PRN, Loratadine 1 Tablet (of 10 mg) Oral daily, Lovastatin 1 Tablet (of 20 mg) Oral daily, Myrbetriq 1 Tablet (of 25 mg) Tablet SR 24 HR Oral daily, Omeprazole 1 Capsule (of 40 mg) Capsule Delayed Release Oral daily, Prochlorperazine Maleate (5 mg) Tablet Oral Take as Directed, Spiriva HandiHaler 1 Capsule (of 18 mcg) Inhalation daily Allergies: No Known Allergies. Review of Systems: Review of Systems is not available for this patient. Vital Signs: Performed on Jan 06, 2022 08:22 Height - 61.00 in Weight - 109.0 lbs (LOW) BSA - 1.46 sq.m BMI - 20.60 Temperature - 97.2 F (LOW) Pulse - 82 /min Respiration - 16 /min BP - 151/80 mm(hg) (HIGH) O2 Sat - 96 % Pain - 0 Fatigue - 2 Performance Status: 0 - Fully active, able to carry on all predisease activities without restrictions. (ECOG) Physical Examination: ENMT - No mouth sores, no thrush, no jaundice, Respiratory - Poor air entry otherwise clear, Cardiovascular - Regular rate and rhythm of heart, Abdomen - Soft, bowel sounds present, Extremities - No visible edema. Lab/Imaging: Test performed on Dec 04, 2021 13:00 Sodium 139 mmol/L Potassium 4.0 mmol/L Chloride 103 mmol/L CO2 23 mmol/L Anion Gap 17.0 BUN 11 mg/dL Creatinine 0.5 mg/dL Cr Clearance (Est) 87.5700 mL/min eGFR 122.0 mL/min Glucose 77 mg/dL Osmolality - Calculated 286 mOsm/kg Calcium 9.5 mg/dL Protein, Total 6.3 g/dL Albumin 3.9 g/dL Globulin 2.4 g/dL Bilirubin, Total 0.5 mg/dL ALT (SGPT) 16 U/L AST (SGOT) 13 U/L Alkaline Phosphatase 88 IU/L WBC 2.6 10 3/uL RBC 3.95 10 6/uL HGB 11.8 g/dL HCT 36.3 % MCV 91.9 fl MCH 29.9 pg MCHC 32.5 g/dL RDW 15.8 % Platelet Count 123 10 3/cmm MPV 9.7 fL Neutrophils 1.98 10 3/uL Lymphocytes 0.3 10 3/uL Monocytes 0.2 10 3/uL Eosinophils 0.1 10 3/uL Basophils 0.0 10 3/uL Neutrophil % 75.8 % Lymphocyte % 13.0 % Monocyte % 7.7 % Eosinophil % 1.9 % Basophils % 0.8 % NRBC % 0 % Impression: Giant cell carcinoma involving AP window lymph nodes per mediastinoscopy done on September 09, 2021 Immunohistochemistry confirmed Ki-67 60%,, PD-L1 more than 50% CT PET scan done on August 05, 2021 showed 3.3 x 3.5 cm mass involving left superior hilum/AP window area with SUV of 27.7. No other abnormal node uptake is seen, no evidence of distant metastatic disease MRI scan of the head done on October 14, 2021 shows no evidence of brain mets, Clinically staged 3A (T2bN2), Status post combined chemoradiation with weekly carboplatin/Taxol concluded on December 10, 2021, Completed last weekly carboplatin/Taxol on December 05, 2021 and radiation therapy on December 11, 2021 Follow-up CT scan of chest done on December 30, 2021 showed persistent heterogeneously enhancing left AP window mass measuring 3.5 x 3.7 x 4.6 cm, this is few millimeters smaller compared to 3.6 x 3.8 x 4.8 cm mass seen at the time of diagnosis, prior to combined chemoradiation CT lung screening done on July 08, 2021 shows ill-defined soft tissue mass within the left upper lobe extending into the AP window measuring 4.8 x 3.6 x 3.8 cm, marked emphysema, Patient is on home oxygen Plan: Discussed with patient regarding her lab work-up white blood count 4 hemoglobin 11.7 g compared to 10.8 g previously hematocrit 37.3 platelets [id number] CMP within normal limits and follow-up CT scan of chest which showed stable left lung mass Clinically, patient doing well with no new signs symptoms suggestive of disease progression her lab work-up is within normal range and her follow-up CT scan of chest shows persistent left AP window mass, slightly smaller now 3.5 x 3.7 x 4.6 cm, compared to 3.6 x 3.8 x 4.8 cm at the time of diagnosis, prior to combined chemoradiation, possibility of persistent mass could be due to treatment resistant disease, or partial response with inflammatory reaction or posttreatment inflammatory changes., At this point, as per NCCN guidelines, patient was offered further consolidation therapy with full dose carboplatin/Taxol every 3 weeks x2 followed by maintenance therapy with durvalumab for 12 months, patient is somewhat reluctant as far as chemotherapy is concerned, other option would be proceeding with maintenance therapy with durvalumab and follow-up with CT PET scan or observation but being high risk, we would offer systemic chemotherapy with carboplatin/Taxol every 3 weeks x2 followed by maintenance therapy with durvalumab but patient is somewhat reluctant and wants to discuss with Dr. Oneill, radiation oncology whom she is scheduled to see on January 17, 2022. So she will return to clinic in 2 weeks for further discussion regarding treatment options. Signed By: Colt Sal M.D. <<Signature on File>>
== END 2022-01-06 23:59 | disposition home or self-care (01) ==
LOC: ONCMED 06:53
PROVIDERS: Absent Provider Radiology Radiation Oncology; PCP Family Medicine; Visit Provider Internal Medicine Hematology & Oncology
DX: Z51.0 Encounter for antineoplastic radiation therapy (principal); C34.02 Malignant neoplasm of left main bronchus; Z99.81 Dependence on supplemental oxygen; Z79.899 Other long term (current) drug therapy; Z92.21 Personal history of antineoplastic chemotherapy
CPT/HCPCS: 36591; 71260; 77014; 77336; 77386; 77427; 80053; 85025; 99214; Q9967

== ENCOUNTER 2022-01-22 06:41 | Outpatient (RCR) | payer MEDICARE, MEDICAID, SELFPAY ==
--- NOTE | 2022-01-17 09:43 | ONCRAD EPV_ITS ---
Radiation Oncology Follow-Up Note Patient Name: Marbella Alfaro Date of : 1950 Date of Service: 01/17/2022 Attending Physician: Diony Oneill M.D. Marbella Alfaro returned to my office this morning for a routinely scheduled follow-up appointment. 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 She was identified to have a 4.8 cm x 3.6 cm x 3.8 cm left upper-lobe mass by a low-dose CT lung cancer screening. A bronchoscopy with endobronchial ultrasound-guided transbronchial needle biopsy was performed by Bimal Aranda M.D. on July 16, 2021. Biopsies obtained from the left hilar mass demonstrated atypical cell clusters but was not diagnostic for malignancy. A PET CT ordered on August 05, [id number] confirmed metabolic activity within the left superior hilum and AP window regions (SUV 27.7) without metastatic disease. A left-sided Parker procedure with biopsy of the AP window mass was completed on September 09 by Wallace Lugo M.D. 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 Thoracic radiation therapy was delivered between the dates of October 28, 2021 through December 10, 2021. A prescribed dose of 60 Gy was delivered in 30 fractions encompassing 44 elapsed days. She was prescribed Carboplatin (AUC 2) and Paclitaxel (50 mg/m???) weekly during radiotherapy under the supervision of Colt Sal M.D (October 29, 2021 through December 05, 2021). Recent CT imaging demonstrated persistent disease. On review of systems, she denied any new pulmonary complaints. On physical examination, she weighed 111 lbs and her temperature was 98.5???F. Her blood pressure was 125/66 mmHg. The pulse was 86 bpm and the respiratory rate was 16 breaths per minute. Her oxygen saturation while breathing ambient air was 96%. Auscultation of the posterior lung tamayo identified bronchial breath sounds. In summary, Ms. Alfaro returned for a routine post-radiotherapy follow-up. There were no significant sequelae from radiotherapy. She will continue follow-up as scheduled with her medical oncologist. Maintenance immune checkpoint inhibitor immunotherapy has been recommended. Signed by: Dr. Diony Oneill 01/17/2022 9:42:11 AM
--- NOTE | 2022-01-22 17:14 | ONC FU_ITS ---
Dr. Sal follow up note Patient: Marbelal Alfaro Unit #: [id number]: 1950 Dicatated By: Colt Sal M.D.Date of Visit:Jan 22, 2022 Onc Med Follow-up/Prog Note History of Present Illness: Ms. Marbella Alfaro, 71-year-old female with longstanding history of smoking, underwent CT lung screening on July 08, 2021, which showed ill-defined soft tissue mass centered within left upper lobe extending into AP window, mass measured 4.8 x 3.6 x 3.8 cm, marked emphysema, bilateral lower lobe calcified granulomata, patient underwent CT PET scan on August 05, 2021 which showed mass identified involving left superior hilum/AP window area measuring up to 3.3 x 3.5 cm with SUV 27.7, no other abnormality seen Patient underwent bronchoscopy/EBUS but pathology was inconclusive, subsequently patient was referred to Dr. 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 Her first cycle was on October 29, 2021.And concluded combined chemoradiation on December 10, 2021 Follow-up CT scan of chest done on December 30, 2021 shows again seen is a heterogeneously enhancing left AP window mass measuring 3.5 x 3.7 x 4.6 cm compared to 3.6 x 3.8 x 4.8 cm at the time of diagnosis. Otherwise no significant changes compared to previous exam no new mediastinal or hilar lymphadenopathy, chronic emphysematous changes with a few small calcified granulomas. Came for follow-up, denies any specific complaints, no fever chills, no nausea or vomiting, no diarrhea constipation, no hemoptysis hematemesis, no new bony pains, no jaundice, appetite is good, her anxiety is under control with current antianxiety medication. Still smoking about pack a day. Medications: Breo Ellipta 1 Inhalation (of 100-25 mcg/inh) Aerosol Powder, Breath Activated Inhalation daily, Cholecalciferol 1 Capsule (of 50 mcg ) Oral daily, HYDROcodone-Acetaminophen 1 - 2 Tablet (of 5-325 mg) Tablet Oral q 4 to 6 hours PRN, Loratadine 1 Tablet (of 10 mg) Oral daily, LORazepam (0.5 mg) Tablet Oral Take as Directed, Lovastatin 1 Tablet (of 20 mg) Oral daily, Myrbetriq 1 Tablet (of 25 mg) Tablet SR 24 HR Oral daily, Omeprazole 1 Capsule (of 40 mg) Capsule Delayed Release Oral daily, Prochlorperazine Maleate (5 mg) Tablet Oral Take as Directed, Spiriva HandiHaler 1 Capsule (of 18 mcg) Inhalation daily Allergies: No Known Allergies. Review of Systems: Review of Systems is not available for this patient. Vital Signs: Performed on Jan 22, 2022 15:53 Height - 61.00 in Weight - 109.8 lbs (LOW) BSA - 1.46 sq.m BMI - 20.75 Temperature - 97.8 F (LOW) Pulse - 88 /min Respiration - 18 /min BP - 133/74 mm(hg) O2 Sat - 95 % (LOW) Pain - 0 Fatigue - 2 Performance Status: 0 - Fully active, able to carry on all predisease activities without restrictions. (ECOG) Physical Examination: ENMT - No mouth sores, no thrush, no jaundice, Respiratory - Poor air entry, mild wheezing, Cardiovascular - Regular rate and rhythm of heart, Abdomen - Soft, bowel sounds present, Extremities - No visible edema. Lab/Imaging: Test performed on Jan 22, 2022 16:14 Creatinine 0.5 mg/dL Cr Clearance (Est) 82.32 mL/min Test performed on Dec 04, 2021 13:00 Sodium 139 mmol/L Potassium 4.0 mmol/L Chloride 103 mmol/L CO2 23 mmol/L Anion Gap 17.0 BUN 11 mg/dL eGFR 122.0 mL/min Glucose 77 mg/dL Osmolality - Calculated 286 mOsm/kg Calcium 9.5 mg/dL Protein, Total 6.3 g/dL Albumin 3.9 g/dL Globulin 2.4 g/dL Bilirubin, Total 0.5 mg/dL ALT (SGPT) 16 U/L AST (SGOT) 13 U/L Alkaline Phosphatase 88 IU/L WBC 2.6 10 3/uL RBC 3.95 10 6/uL HGB 11.8 g/dL HCT 36.3 % MCV 91.9 fl MCH 29.9 pg MCHC 32.5 g/dL RDW 15.8 % Platelet Count 123 10 3/cmm MPV 9.7 fL Neutrophils 1.98 10 3/uL Lymphocytes 0.3 10 3/uL Monocytes 0.2 10 3/uL Eosinophils 0.1 10 3/uL Basophils 0.0 10 3/uL Neutrophil % 75.8 % Lymphocyte % 13.0 % Monocyte % 7.7 % Eosinophil % 1.9 % Basophils % 0.8 % NRBC % 0 % Impression: Giant cell carcinoma involving AP window lymph nodes per mediastinoscopy done on September 09, 2021 Immunohistochemistry confirmed Ki-67 60%,, PD-L1 more than 50% CT PET scan done on August 05, 2021 showed 3.3 x 3.5 cm mass involving left superior hilum/AP window area with SUV of 27.7. No other abnormal node uptake is seen, no evidence of distant metastatic disease MRI scan of the head done on October 14, 2021 shows no evidence of brain mets, Clinically staged 3A (T2bN2), Status post combined chemoradiation with weekly carboplatin/Taxol concluded on December 10, 2021, Completed last weekly carboplatin/Taxol on December 05, 2021 and radiation therapy on December 11, 2021 Follow-up CT scan of chest done on December 30, 2021 showed persistent heterogeneously enhancing left AP window mass measuring 3.5 x 3.7 x 4.6 cm, this is few millimeters smaller compared to 3.6 x 3.8 x 4.8 cm mass seen at the time of diagnosis, prior to combined chemoradiation CT lung screening done on July 08, 2021 shows ill-defined soft tissue mass within the left upper lobe extending into the AP window measuring 4.8 x 3.6 x 3.8 cm, marked emphysema, Patient is on home oxygen Plan: Discussed with patient regarding her disease status and further treatment options again, as her follow-up CT scan after combined chemoradiation showed no significant improvement in the left lung mass, she was advised to consider 2 cycles of full dose carboplatin/Taxol with Neulasta support followed by maintenance therapy with durvalumab every 2 weeks for 1 year. Patient was reluctant regarding chemotherapy but now agreed., We will consider 2 cycles of full dose carboplatin/Taxol with Neulasta support and all the side effect and possible benefits were discussed again, patient was receiving weekly carboplatin/Taxol during radiation therapy so she is aware of related side effects. We will obtain approval from her insurance prior to the treatment and then she will return to clinic 1 week after first dose of full dose carboplatin/Taxol with Neulasta support, with CBC CMP Signed By: Colt Sal M.D. <<Signature on File>>
== END 2022-02-06 23:59 | disposition home or self-care (01) ==
LOC: ONCMED 06:41
PROVIDERS: PCP Family Medicine; Visit Provider Internal Medicine Hematology & Oncology
DX: C34.02 Malignant neoplasm of left main bronchus (principal); J43.9 Emphysema, unspecified; Z99.81 Dependence on supplemental oxygen; Z92.21 Personal history of antineoplastic chemotherapy; Z92.3 Personal history of irradiation
CPT/HCPCS: 99024; 99215

== ENCOUNTER 2022-02-03 07:38 | Outpatient (CLI) | payer MEDICARE, MEDICAID, SELFPAY ==
[2022-02-03 08:42] LABS: Hematocrit 42.2 % (37.0-47.0); Hemoglobin 13.4 g/dL (11.5-15.3); Lymphocytes # 0.3 10^3/uL (0.8-4.8); Lymphocytes % 17.9 %; Mean Corpuscular HGB Conc 31.8 g/dL (30.0-36.0); Mean Corpuscular Hemoglobin 29.6 pg (28.0-34.0); Mean Corpuscular Volume 93.4 fl (81-99); Mean Platelet Volume 9.3 fL (7.4-10.4); Monocytes % 1.1 %; Neutrophils # 1.44 10^3/uL (1.8-7.7); Neutrophils % 80.4 %; Nucleated Red Blood Cells % 0 %; Platelet Count 222 10^3/cmm (130-400); Red Blood Count 4.52 10^6/uL (4.1-5.3); Red Cell Distribution Width 14.2 % (12.1-15.1); White Blood Count 1.8 10^3/uL (4.0-10.0)
[2022-02-03 09:05] LABS: Alanine Aminotransferase 15 U/L (0-33); Albumin Level 4.3 g/dL (3.5-5.2); Alkaline Phosphatase 89 IU/L (35-105); Aspartate Amino Transferase 15 U/L (0-32); Blood Urea Nitrogen 13 mg/dL (8-23); Calcium 9.9 mg/dL (8.5-10.5); Carbon Dioxide 23 mmol/L (22-29); Chloride 107 mmol/L (98-107); Glomerular Filtration Rate 98.8 mL/min (90-130); Glucose 151 mg/dL (65-115); Osmolality Calculated 297 mOsm/kg (285-295); Sodium 142 mmol/L (136-145); Total Bilirubin 0.2 mg/dL (0.15-1.2); Total Protein 7.3 g/dL (6.6-8.7)
--- NOTE | 2022-02-03 09:18 | ONC FU_ITS ---
[facility] Juarez Progress Note Patient: Mareblla Alfaro Unit #: [id number]: 1950 Dicatated By: Claritza Juarez N.P.Date of Visit:Feb 03, 2022 Onc MED Follow-up/Prog Note Chief Complaint: Lung cancer History of Present Illness: Ms. Marbella Alfaro, 71-year-old female with longstanding history of smoking, underwent CT lung screening on July 08, 2021, which showed ill-defined soft tissue mass centered within left upper lobe extending into AP window, mass measured 4.8 x 3.6 x 3.8 cm, marked emphysema, bilateral lower lobe calcified granulomata, patient underwent CT PET scan on August 05, 2021 which showed mass identified involving left superior hilum/AP window area measuring up to 3.3 x 3.5 cm with SUV 27.7, no other abnormality seen Patient underwent bronchoscopy/EBUS but pathology was inconclusive, subsequently patient was referred to Dr. 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 Her first cycle was on October 29, 2021.And concluded combined chemoradiation on December 10, 2021 Follow-up CT scan of chest done on December 30, 2021 shows again seen is a heterogeneously enhancing left AP window mass measuring 3.5 x 3.7 x 4.6 cm compared to 3.6 x 3.8 x 4.8 cm at the time of diagnosis. Otherwise no significant changes compared to previous exam no new mediastinal or hilar lymphadenopathy, chronic emphysematous changes with a few small calcified granulomas. Patient presents today for follow-up and for education on durvalumab which will be given every 2 weeks following 2 cycles of carboplatin and Taxol. She states she continues to have shortness of breath with a productive brown cough. She still smokes about 1 pack of cigarettes per day. She has started walking again which has made her feel better. She denies fever, chills, night sweats. Her throat is hoarse sounding but she denies a sore throat. No GI symptoms. No headaches or dizziness. No numbness or tingling. Review Of Symptoms: See above. Past Medical History: Chronic obstructive pulmonary disease Fibromyalgia Gastroesophageal reflux disease Hypercholesterolemia Overactive bladder Past Surgical History: [place] procedure Cholecystectomy Lumpectomy Tonsillectomy Power Port Placement in 2020 Covid vaccine #2 in 2020 Covid vaccine #1 in 2020 Hysterectomy in 1982 Allergies: No Known Allergies. Medications: Breo Ellipta 1 Inhalation (of 100-25 mcg/inh) Aerosol Powder, Breath Activated Inhalation daily Cholecalciferol 1 Capsule (of 50 mcg ) Oral daily HYDROcodone-Acetaminophen 1 - 2 Tablet (of 5-325 mg) Tablet Oral q 4 to 6 hours PRN Loratadine 1 Tablet (of 10 mg) Oral daily LORazepam (0.5 mg) Tablet Oral Take as Directed Lovastatin 1 Tablet (of 20 mg) Oral daily Myrbetriq 1 Tablet (of 25 mg) Tablet SR 24 HR Oral daily Omeprazole 1 Capsule (of 40 mg) Capsule Delayed Release Oral daily Prochlorperazine Maleate (5 mg) Tablet Oral Take as Directed Spiriva HandiHaler 1 Capsule (of 18 mcg) Inhalation daily Family History: Ms. Alfaro's mother is : hypertension. Ms. Alfaro's father is : heart disease. Ms. Alfaro has 1 brother who is : lung cancer. Social History: Ms. Alfaro is single. She is a daily smoker who has smoked 1.0 pack/day for 56 years. She drinks occasionally. 2-3 mixed drinks a month. Physical Examination: Performed on Feb 03, 2022 09:14: Height - 61.00 in, Weight - 108.0 lbs (LOW), BSA - 1.45 sq.m, BMI - 20.41, Temperature - 97.9 F (LOW), Pulse - 96 /min, Respiration - 18 /min, BP - 150/79 mm(hg) (HIGH), O2 Sat - 95 % (LOW), Pain - 0, and Fatigue - 3. Performance Status: 1 - No physically strenuous activity, but ambulatory and able to carry out light or sedentary work (e.g. office work, light house work). (ECOG) Constitutional Alert, cooperative, oriented. Mood and affect appropriate. Appears close to chronological age. Well nourished. Well developed. Head Normocephalic; no scars. Respiratory Lungs are clear to auscultation without rhonchi or wheezing. Shortness of breath with speaking. Voice is hoarse. Cardiovascular Regular rate and rhythm of heart without murmurs, gallops or rubs. Musculoskeletal No tenderness or swelling, normal range of motion without obvious weakness. Psychiatric Alert and oriented times three. Coherent speech. Verbalizes understanding of our discussions today. Laboratory: Test performed on Feb 03, 2022 08:25 Sodium 142 mmol/L Potassium 4.0 mmol/L Chloride 107 mmol/L CO2 23 mmol/L Anion Gap 16.0 BUN 13 mg/dL Creatinine 0.6 mg/dL Cr Clearance (Est) 68.6000 mL/min eGFR 98.8 mL/min Glucose 151 mg/dL Osmolality - Calculated 297 mOsm/kg Calcium 9.9 mg/dL Protein, Total 7.3 g/dL Albumin 4.3 g/dL Globulin 3.0 g/dL Bilirubin, Total 0.2 mg/dL ALT (SGPT) 15 U/L AST (SGOT) 15 U/L Alkaline Phosphatase 89 IU/L Test performed on Dec 04, 2021 13:00 WBC 2.6 10 3/uL RBC 3.95 10 6/uL HGB 11.8 g/dL HCT 36.3 % MCV 91.9 fl MCH 29.9 pg MCHC 32.5 g/dL RDW 15.8 % Platelet Count 123 10 3/cmm MPV 9.7 fL Neutrophils 1.98 10 3/uL Lymphocytes 0.3 10 3/uL Monocytes 0.2 10 3/uL Eosinophils 0.1 10 3/uL Basophils 0.0 10 3/uL Neutrophil % 75.8 % Lymphocyte % 13.0 % Monocyte % 7.7 % Eosinophil % 1.9 % Basophils % 0.8 % NRBC % 0 % Impression: Giant cell carcinoma involving AP window lymph nodes per mediastinoscopy done on September 09, 2021 Immunohistochemistry confirmed Ki-67 60%,, PD-L1 more than 50% CT PET scan done on August 05, 2021 showed 3.3 x 3.5 cm mass involving left superior hilum/AP window area with SUV of 27.7. No other abnormal node uptake is seen, no evidence of distant metastatic disease MRI scan of the head done on October 14, 2021 shows no evidence of brain mets, Clinically staged 3A (T2bN2), Status post combined chemoradiation with weekly carboplatin/Taxol concluded on December 10, 2021, Completed last weekly carboplatin/Taxol on December 05, 2021 and radiation therapy on December 11, 2021 Follow-up CT scan of chest done on December 30, 2021 showed persistent heterogeneously enhancing left AP window mass measuring 3.5 x 3.7 x 4.6 cm, this is few millimeters smaller compared to 3.6 x 3.8 x 4.8 cm mass seen at the time of diagnosis, prior to combined chemoradiation CT lung screening done on July 08, 2021 shows ill-defined soft tissue mass within the left upper lobe extending into the AP window measuring 4.8 x 3.6 x 3.8 cm, marked emphysema, Patient is on home oxygen Plan: Discussed with patient regarding her disease status and further treatment options again, as her follow-up CT scan after combined chemoradiation showed no significant improvement in the left lung mass, she was advised to consider 2 cycles of full dose carboplatin/Taxol with Neulasta support followed by maintenance therapy with durvalumab every 2 weeks for 1 year. Patient presents today for start of carboplatin and paclitaxel x2 cycles. Following those 2 cycles she will start maintenance therapy with durvalumab every 2 weeks. Education and handouts provided concerning the durvalumab. She does not require further education on carboplatin and paclitaxel because she has been receiving that. She will follow-up in 1 week with CBC and CMP. Signed By: Claritza Juarez N.P. <<Signature on File>>
[2022-02-03 10:36] LABS: Thyroid Stimulating Hormone 0.49 uIU/mL (0.27-4.20)
[2022-02-03 11:22] LABS: SARS Covid-2 Antigen Negative (Negative)
== END 2022-02-03 07:39 | disposition home or self-care (01) ==
PROVIDERS: PCP Family Medicine; Visit Provider Nurse Practitioner Family
DX: C34.02 Malignant neoplasm of left main bronchus (principal); J43.9 Emphysema, unspecified; Z92.21 Personal history of antineoplastic chemotherapy; Z92.3 Personal history of irradiation; Z99.81 Dependence on supplemental oxygen; F17.200 Nicotine dependence, unspecified, uncomplicated
CPT/HCPCS: 36591; 80053; 84443; 85025; 87426; 99214

== ENCOUNTER 2022-02-12 07:53 | Outpatient (RCR) | payer MEDICARE, MEDICAID, SELFPAY ==
[2022-02-12 08:43] LABS: Basophils % 0.7 %; Eosinophils # 0.2 10^3/uL (0.0-0.8); Eosinophils % 2.5 %; Hematocrit 42.8 % (37.0-47.0); Hemoglobin 13.8 g/dL (11.5-15.3); Lymphocytes # 0.9 10^3/uL (0.8-4.8); Lymphocytes % 15.7 %; Mean Corpuscular HGB Conc 32.2 g/dL (30.0-36.0); Mean Corpuscular Hemoglobin 30.2 pg (28.0-34.0); Mean Corpuscular Volume 93.7 fl (81-99); Mean Platelet Volume 9.5 fL (7.4-10.4); Monocytes # 0.5 10^3/uL (0.2-0.9); Monocytes % 8.7 %; Neutrophils # 4.32 10^3/uL (1.8-7.7); Neutrophils % 72.1 %; Nucleated Red Blood Cells % 0 %; Platelet Count 238 10^3/cmm (130-400); Red Blood Count 4.57 10^6/uL (4.1-5.3)
[2022-02-12 09:02] LABS: Alanine Aminotransferase 12 U/L (0-33); Alkaline Phosphatase 93 IU/L (35-105); Anion Gap 15.6 (5-19); Aspartate Amino Transferase 14 U/L (0-32); Blood Urea Nitrogen 13 mg/dL (8-23); Calcium 9.4 mg/dL (8.5-10.5); Carbon Dioxide 23 mmol/L (22-29); Chloride 107 mmol/L (98-107); Globulin 2.7 g/dL (1.3-4.6); Glomerular Filtration Rate 98.8 mL/min (90-130); Glucose 91 mg/dL (65-115); Osmolality Calculated 294 mOsm/kg (285-295); Potassium 3.6 mmol/L (3.5-5.1); Sodium 142 mmol/L (136-145); Total Bilirubin 0.2 mg/dL (0.15-1.2); Total Protein 6.7 g/dL (6.6-8.7)
== END 2022-03-08 23:59 | disposition home or self-care (01) ==
LOC: ONCMED 07:53
PROVIDERS: PCP Family Medicine; Visit Provider Internal Medicine Hematology & Oncology
DX: C34.02 Malignant neoplasm of left main bronchus (principal)
CPT/HCPCS: 36591; 80053; 85025

== ENCOUNTER 2022-02-12 08:30 | Emergency (ER) | payer MEDICARE, MEDICAID, SELFPAY ==
[2022-02-12 08:37] VITALS: BP 134/80; PULSE 89; RESP 25; O2SAT 95; BMI 20.4
--- NOTE | 2022-02-12 08:54 | XR_ITS ---
WS: [id number] XR chest 1V portable [id number] REASON FOR EXAM: cp FINDINGS: Chemotherapy infusion port overlies the right chest with transvenous right subclavian catheter with t ip in the SVC. Elevation of the left hemidiaphragm. Alteration of the hemidiaphragmatic contour and blunting of the right costophrenic angle may indicate the presence of a small pleural effusion compared to the previous examination of 10/01/2021. No acute pulmonary parenchymal abnormality is identified. XR/XR chest 1V portable [id number] IMPRESSION: Possible right pleural effusion as above.
--- NOTE | 2022-02-12 08:57 | ECG_ITS ---
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 Measurements Intervals [place] Rate: 81 P: 53 OK: 140 QRS: 49 QRSD: 88 T: 65 QT: 380 QTc: 443 Interpretive Statements SINUS RHYTHM Compared to ECG 09/04/2021 09:17:11 Sinus arrhythmia no longer present Myocardial infarct finding no longer present Electronically Signed On 02-12-2022 18:26:08 CDT by Charity Cha M.D. [id number]
--- NOTE | 2022-02-12 09:10 | ED_ITS ---
Documented by User: JERRY Cerna 02/13/22 07:43 HPI - Chest Pain General: Chief Complaint: Chest Pain Stated Complaint: Chest Pain SOB Time Seen by Provider: 02/12/22 08:54 History of Present Illness: Patient is a 71-year-old female comes to the ED with shortness of breath and chest pain. Past medical history of giant cell carcinoma of lung, COPD and emphysema. Patient is on 2 L of oxygen at home as needed. She is not use her oxygen most of the time. She says over the last week since the chest pain and shortness of breath started she is been using her 2 L of oxygen more. Chest pain she describes as a heaviness and achiness throughout her chest. She rates her chest pain currently a 3 out of 10. Chest pain does not worsen with exertion or when lying flat. Shortness of breath does not worsen with exertion or lying flat. Denies any fever, cough. Denies any current nausea, vomiting, diarrhea, dysuria or hematuria. Associated symptoms: Reports dyspnea; Deny abdominal pain, fever(s), nausea, palpitations or vomiting Review of Systems Const: Denies: fever(s), chills or fatigue Eyes: Denies: change in vision or eye discomfort ENMT: Denies: throat pain, odynophagia, nasal discharge or nasal congestion Card: Reports: chest pain; Denies: palpitations, edema, swelling of feet/ankles, dyspnea on exertion or orthopnea Resp: Reports: dyspnea; Denies: productive cough or non-productive cough GI: Denies: abdominal pain, nausea, vomiting, diarrhea, constipation or hematochezia : Denies: flank pain, dysuria or hematuria Musc: Denies: neck pain, back pain or extremity swelling Skin/Breast: Denies: rash or new lesions Neuro: Denies: headache(s), numbness in extremities or weakness in extremities PFSH ED PFSH: Medical History COPD (chronic obstructive pulmonary disease) Fibromyalgia GERD (gastroesophageal reflux disease) Hypercholesteremia Lung mass Nicotine dependence, cigarettes, uncomplicated Overactive bladder Surgical History H/O lumpectomy History of cholecystectomy History of hysterectomy Hx of tonsillectomy Family History Brother Cancer Lung Mother Hypertension Father Heart disease Social History Second hand smoke exposure: Yes Smoking risk assessment/counseling performed?: No Alcohol intake: current Alcohol intake frequency: holidays/special occasions only Counseling given: No Counseling given: No Lives independently: Yes Household members: none Marital status: Current occupational status: retired History of recent travel: No Current gender identity: Female Physical Exam Const: COMMON NORMALS: patient oriented x3 and alert GENERAL APPEARANCE: cooperative HENMT: COMMON NORMALS: normocephalic HEAD & SCALP: normocephalic MOUTH: Normal oral and palatal mucosa present THROAT: posterior oropharynx normal and uvula midline Neck/C-Spine: COMMON NORMALS: supple GENERAL: Yes normal visual inspection Resp: COMMON NORMALS: normal respiratory effort, No retractions, No use of accessory muscles and clear to auscultation bilaterally AUSCULTATION: clear to auscultation bilaterally Cardio: COMMON NORMALS: regular rate, regular rhythm, S1 normal heart sound present, S2 normal heart sound present, No gallops present (Cardio), No clicks present (Cardio), No murmurs present (Cardio) and Peripheral pulses 2+ throughout RATE: regular rate RHYTHM: regular rhythm HEART SOUNDS: S1 normal heart sound present and S2 normal heart sound present PERIPHERAL PULSES: Peripheral pulses 2+ throughout GI: COMMON NORMALS: Normal to inspection, nondistended, normoactive bowel mariola nds present, Soft to palpation, non-tender and no masses PALPATION: Yes Soft to palpation : COMMON NORMALS: Yes no CVA tenderness BLADDER/KIDNEY EXAM: Yes no CVA tenderness Back/Pelvis: COMMON NORMALS: no CVA tenderness Extremity: COMMON NORMALS: normal to inspection and no pedal edema Neuro: COMMON NORMALS: patient oriented x3 and moves all extremities SENSORIUM/ORIENTATION: Yes alert Skin: GENERAL SKIN EXAM: dry skin Course Reevaluation(s): Reevaluation #1: I went in and talk with patient and told her that after talking with Dr. Stewart we discussed having patient admitted and further cardiac work-up in the hospital could be done. Patient refused admission. She stated her shortness of breath chest pain is a lot better now.I told her that she does have an increased risk of potential heart issues given her history. Patient states she would still like to go home and will follow up with her primary care doctor in the next 2 to 3 days. Time: 12:09 Vital Signs: Vital signs: Vital Signs Pulse Rate 89 02/12/22 08:37 Respiratory Rate 25 H 02/12/22 08:37 Blood Pressure 134/80 02/12/22 08:37 Pulse Oximetry 95 02/12/22 08:37 MDM - Chest Pain Medical Decision Making Patient is a 71-year-old female comes to the ED with shortness of breath and chest pain. Patient has a history of giant cell carcinoma of lung and COPD. She just finished radiation and is currently getting chemo treatment. Has 2 L of oxygen at home that she uses as needed. Symptoms have been going on now for approximately a week. Vitals are stable and her O2 saturations 95% on room air. Patient is nontoxic and appears in no acute distress or pain. Rest of exam is benign. All labs were unremarkable. EKG showed no acute findings. Chest x-ray showed a small possible right pleural effusion. patient has a heart score of 3. I went in and talk with patient and told her that after talking with Dr. Stewart we discussed having patient admitted and further cardiac work-up in the hospital could be done. Patient refused admission. She stated her shortness of breath chest pain is a lot better now.I told her that she does have an increased risk of potential heart issues given her history. Patient states she would still like to go home and will follow up with her primary care doctor in the next 2 to 3 days. I sent patient home with a prescription for azithromycin and p rednisone. Lab Data I reviewed the patient's lab results. Radiology Impressions Chest X-Ray 02/12/22 08:54 IMPRESSION: Possible right pleural effusion as above. Laboratory Results Troponin T Baseline 10 ng/L (0-10) 02/12/22 08:05 Troponin T 120 Minute 10.78 ng/L (0-10) H 02/12/22 10:04 Delta Troponin T 0.78 ABS# (0-10) 02/12/22 10:04 NT-Pro-B Natriuret Pep 134 pg/mL (0-125) H 02/12/22 08:05 Lipase 51 U/L (13-60) 02/12/22 08:05 Urine Color Yellow (Yellow) 02/12/22 08:25 Urine Appearance Clear (CLEAR) 02/12/22 08:25 Urine pH 5 (5-7) 02/12/22 08:25 Ur Specific Oakley 1.020 (1.005-1.030) 02/12/22 08:25 Urine Protein Neg (Negative) 02/12/22 08:25 Urine Glucose (UA) Norm (Normal) 02/12/22 08:25 Urine Ketones Negative (Negative) 02/12/22 08:25 Urine Blood Neg (Negative) 02/12/22 08:25 Urine Nitrate Negative (Negative) 02/12/22 08:25 Urine Bilirubin Neg (Negative) 02/12/22 08:25 Urine Urobilinogen Norm mg/dL (Negative) 02/12/22 08:25 Ur Leukocyte Esterase Negative (Negative) 02/12/22 08:25 EKG Data EKG 1: EKG interpretation date: 02/12/22 Interpretation: Normal sinus rhythm, 81 bpm, no ST segment elevation or depression seen. Discharge Plan Discharge Patient Disposition: Home Clinical Impression: Mild shortness of breath, Atypical chest pain Condition: Stable Prescriptions: New azithromycin 250 mg tablet See Rx Instructions .ROUTE .COMPLEX Qty: 6 0RF Rx Instructions: For 250 mg dose pack: take 500 mg today (day 1), then 250 mg for 4 days (days 2-5) prednisone 20 mg tablet 20 mg PO BID 5 Days Qty: 10 0RF No Action lovastatin 20 mg tablet 20 mg PO DAILY 0RF Breo Ellipta 100-25 mcg/dose blister with device 1 inh inhalation DAILY 0RF Spiriva with HandiHaler 18 mcg capsule, w/inhalation device 1 cap inhalation DAILY 0RF Rx Instructions: puncture 1 cap using device; one dose = 2 inhalations omeprazole 40 mg capsule,delayed release(DR/EC) 40 mg PO DAILY 0RF Myrbetriq 25 mg tablet extended release 24 hr 25 mg PO DAILY 0RF cholecalciferol (vitamin D3) 50 mcg (2,000 unit) capsule 50 mcg PO DAILY 0RF loratadine [Allergy Relief (loratadine)] 10 mg tablet 10 mg PO DAILY 0RF ondansetron HCl [Zofran] 4 mg tablet 4 mg PO Q6H PRN (Reason: nausea and vomiting) Qty: 30 1RF hydrocodone-acetaminophen 5-325 mg tablet 1 tab PO Q6H PRN (Reason: pain) Qty: 14 0RF Discharge Orders: Discharge ED (Routine); Ordered 02/12/22 Ordered By: Bay Quigley Referrals: Ash Portillo MD [Primary Care Provider] - Discharge Diet: Regular Discharge Activity: Increase activity as tolerated Patient Instructions: Shortness of Breath (ED) Activity Restrictions/Additional Instructions: Follow-up with primary care physician in the next 2 to 3 days for reevaluation.Take medications as prescribed. Return to the ER or your medical provider if condition worsens. Please read and understand discharge instructions. Thank you for choosing [facility] for your healthcare needs today. Please realize this is an emergency room and that we are providing you with a medical screening exam and this may not be complete and all inclusive of all the testing and or work up that you may need to determine your ailment or severity of your illness. It is very important that you follow up as instructed or that you return to the Emergency Department should you have concerns or if your condition changes or worsens in any way. Coding Level of Care Code ED Data Processing Specialist for Chg Fwd Exam Comprehensive Documented by User: Tapan Stewart MD 02/16/22 22:38 HPI - Chest Pain General: Chief Complaint: Chest Pain Stated Complaint: Chest Pain SOB Time Seen by Provider: 02/12/22 08:54 PFSH ED PFSH: Medical History COPD (chronic obstructive pulmonary disease) Fibromyalgia GERD (gastroesophageal reflux disease) Hypercholesteremia Lung mass Nicotine dependence, cigarettes, uncomplicated Overactive bladder Surgical History H/O lumpectomy History of cholecystectomy History of hysterectomy Hx of tonsillectomy Family History Brother Cancer Lung Mother Hypertension Father Heart disease Social History Second hand smoke exposure: Yes Smoking risk assessment/counseling performed?: No Alcohol intake: current Alcohol intake frequency: holidays/special occasions only Counseling given: No Counseling given: No Lives independently: Yes Household members: none Marital status: Current occupational status: retired History of recent travel: No Current gender identity: Female Course Vital Signs: Vital signs: Vital Signs Pulse Rate 89 02/12/22 08:37 Respiratory Rate 25 H 02/12/22 08:37 Blood Pressure 134/80 02/12/22 08:37 Pulse Oximetry 95 02/12/22 08:37 MDM - Chest Pain Medical Decision Making Patient is a 71-year-old female comes to the ED with shortness of breath and chest pain. Patient has a history of giant cell carcinoma of lung and COPD. She just finished radiation and is currently getting chemo treatment. Has 2 L of oxygen at home that she uses as needed. Symptoms have been going on now for approximately a week. Vitals are stable and her O2 saturations 95% on room air. Patient is nontoxic and appears in no acute distress or pain. Rest of exam is benign. All labs were unremarkable. EKG showed no acute findings. Chest x-ray showed a small possible right pleural effusion. patient has a heart score of 3. I went in and talk with patient and told her that after talking with Dr. Stewart we discussed having patient admitted and further cardiac work-up in the hospital could be done. Patient refused admission. She stated her shortness of breath chest pain is a lot better now.I told her that she does have an increased risk of potential heart issues given her history. Patient states she would still like to go home and will follow up with her primary care doctor in the next 2 to 3 days. I sent patient home with a prescription for azithromycin and prednisone. I discussed this case with Bay EDWARDS. I have reviewed documentation. Tapan Stewart MD Emergency Medicine Lab Data Radiology Impressions Chest X-Ray 02/12/22 08:54 IMPRESSION: Possible right pleural effusion as above. Laboratory Results Troponin T Baseline 10 ng/L (0-10) 02/12/22 08:05 Troponin T 120 Minute 10.78 ng/L (0-10) H 02/12/22 10:04 Delta Troponin T 0.78 ABS# (0-10) 02/12/22 10:04 NT-Pro-B Natriuret Pep 134 pg/mL (0-125) H 02/12/22 08:05 Lipase 51 U/L (13-60) 02/12/22 08:05 Urine Color Yellow (Yellow) 02/12/22 08:25 Urine Appearance Clear (CLEAR) 02/12/22 08:25 Urine pH 5 (5-7) 02/12/22 08:25 Ur Specific Oakley 1.020 (1.005-1.030) 02/12/22 08:25 Urine Protein Neg (Negative) 02/12/22 08:25 Urine Glucose (UA) Norm (Normal) 02/12/22 08:25 Urine Ketones Negative (Negative) 02/12/22 08:25 Urine Blood Neg (Negative) 02/12/22 08:25 Urine Nitrate Negative (Negative) 02/12/22 08:25 Urine Bilirubin Neg (Negative) 02/12/22 08:25 Urine Urobilinogen Norm mg/dL (Negative) 02/12/22 08:25 Ur Leukocyte Esterase Negative (Negative) 02/12/22 08:25 Discharge Plan Discharge Patient Disposition: Home Clinical Impression: Mild shortness of breath, Atypical chest pain Condition: Stable Prescriptions: New azithromycin 250 mg tablet See Rx Instructions .ROUTE .COMPLEX Qty: 6 0RF Rx Instructions: For 250 mg dose pack: take 500 mg today (day 1), then 250 mg for 4 days (days 2-5) prednisone 20 mg tablet 20 mg PO BID 5 Days Qty: 10 0RF No Action lovastatin 20 mg tablet 20 mg PO DAILY 0RF Breo Ellipta 100-25 mcg/dose blister with device 1 inh inhalation DAILY 0RF Spiriva with HandiHaler 18 mcg capsule, w/inhalation device 1 cap inhalation DAILY 0RF Rx Instructions: puncture 1 cap using device; one dose = 2 inhalations omeprazole 40 mg capsule,delayed release(DR/EC) 40 mg PO DAILY 0RF Myrbetriq 25 mg tablet extended release 24 hr 25 mg PO DAILY 0RF cholecalciferol (vitamin D3) 50 mcg (2,000 unit) capsule 50 mcg PO DAILY 0RF loratadine [Allergy Relief (loratadine)] 10 mg tablet 10 mg PO DAILY 0RF ondansetron HCl [Zofran] 4 mg tablet 4 mg PO Q6H PRN (Reason: nausea and vomiting) Qty: 30 1RF hydrocodone-acetaminophen 5-325 mg tablet 1 tab PO Q6H PRN (Reason: pain) Qty: 14 0RF Discharge Orders: Discharge ED (Routine); Ordered 02/12/22 Ordered By: Bay Quigley Referrals: Ash Portillo MD [Primary Care Provider] - Discharge Diet: Regular Discharge Activity: Increase activity as tolerated Patient Instructions: Shortness of Breath (ED) Activity Restrictions/Additional Instructions: Follow-up with primary care physician in the next 2 to 3 days for reevaluation.Take medications as prescribed. Return to the ER or your medical provider if condition worsens. Please read and understand discharge instructions. Thank you for choosing [facility] for your healthcare needs today. Please realize this is an emergency room and that we are providing you with a medical screening exam and this may not be complete and all inclusive of all the testing and or work up that you may need to determine your ailment or severity of your illness. It is very important that you follow up as instructed or that you return to the Emergency Department should you have concerns or if your condition changes or worsens in any way. Coding Level of Care Code ED Data Processing Specialist for Summer Fwd Exam Comprehensive
[2022-02-12 09:25] LABS: Troponin(5th) Baseline 10 ng/L (0-10)
[2022-02-12 09:28] LABS: Add Urine Microscopic? NO; Charge for UA Resulting for Rev
[2022-02-12 09:34] LABS: Lipase 51 U/L (13-60); NT Pro B Type Natriuretic Pept 134 pg/mL (0-125)
[2022-02-12 09:47] LABS: Bilirubin Urine Neg (Negative); Blood Urine Neg (Negative); Glucose Urine UA Norm (Normal); Ketones Urine Negative (Negative); Leukocyte Esterase Urine Negative (Negative); Nitrate Urine Negative (Negative); Protein Urine Neg (Negative); Urine Appearance Clear (CLEAR); Urine Color Yellow (Yellow); Urobilinogen Urine Norm (Negative); pH Urine 5 (5-7)
[2022-02-12 10:44] LABS: Troponin 5 2HR 10.78 ng/L (0-10)
[2022-02-12 10:48] LABS: Troponin 5 2HR Delta 0.78 ABS# (0-10)
--- NOTE | 2022-02-12 10:57 | ECG_ITS ---
[facility] Test Date: 2022-02-12 Pat Name: Marbella Alfaro Department: Room: Gender: Female [employer]: : [id number] Requested By: Bay Quigley Order Number: [id number] Gregoria MD: Charity Cha M.D. Measurements Intervals [place] Rate: 77 P: 61 MO: 161 QRS: 51 QRSD: 86 T: 67 QT: 390 QTc: 441 Interpretive Statements SINUS RHYTHM Compared to ECG 02/12/2022 09:06:39 No significant changes Electronically Signed On 02-12-2022 18:30:31 CDT by Charity Cha M.D. [id number]
== END 2022-02-12 12:53 | disposition home or self-care (01) ==
PROVIDERS: Emergency Provider Physician Assistant; PCP Family Medicine
DX: R06.02 Shortness of breath (principal); R07.89 Other chest pain; C34.90 Malignant neoplasm of unspecified part of unspecified bronchus or lung; J44.9 Chronic obstructive pulmonary disease, unspecified; Z99.81 Dependence on supplemental oxygen; Z92.3 Personal history of irradiation; Z79.899 Other long term (current) drug therapy; Z87.891 Personal history of nicotine dependence; C34.02 Malignant neoplasm of left main bronchus
CPT/HCPCS: 36591; 71045; 80053; 81003; 83690; 83880; 84484; 85025; 93005; 99283

== ENCOUNTER 2022-03-13 14:17 | Outpatient (CLI) | payer MEDICARE, MEDICAID, SELFPAY ==
--- NOTE | 2022-03-13 14:26 | XR_ITS ---
WS: [id number] DEXA (DUAL ENERGY X-RAY ABSORPTIOMETRY) Bone mineral density was performed using a Zero[employer] machine. HISTORY: POSTMENOPAUSAL COMPARISON: 06/03/2019 Lumbar spine BMD (L1-L4): 1.111 g/cm2 T score: -0.6 Z score: 1.6 Total hip BMD: Left: 0.738 g/cm2. T score: -2.1 Z score: -0.3 Right: 0.751 g/cm2. T score: -2.0 Z score: -0.2 10 year probability of a major osteoporotic fracture is 20.5%. Compared to the prior study from 06/03/2019. Lumbar spine bone mineral density has increased by 2.3%. Bilateral hips bone mineral density has decreased by 9.5%. Increase in bone mineral density within the lumbar spine may be falsely elevated by sclerosis. XR/XR DEXA axial skeleton* [id number] IMPRESSION: OSTEOPENIA based upon the WHO classification for females. Significant decrease in bone mineral density within the hips since the prior .
== END 2022-03-13 14:18 | disposition home or self-care (01) ==
LOC: RAD 14:20
PROVIDERS: PCP Family Medicine; Visit Provider Nurse Practitioner Family
DX: Z78.0 Asymptomatic menopausal state (principal); M85.80 Other specified disorders of bone density and structure, unspecified site
CPT/HCPCS: 77080

== ENCOUNTER 2022-04-03 08:00 | Oncology outpatient (recurring) (ONCR) | payer MEDICARE, MEDICAID, SELFPAY ==
[2022-03-27 08:33] LABS: Basophils % 0.8 %; Eosinophils # 0.2 10^3/uL (0.0-0.8); Eosinophils % 2.8 %; Hematocrit 40.8 % (37.0-47.0); Hemoglobin 13.4 g/dL (11.5-15.3); Lymphocytes # 0.9 10^3/uL (0.8-4.8); Lymphocytes % 16.4 %; Mean Corpuscular HGB Conc 32.8 g/dL (30.0-36.0); Mean Corpuscular Hemoglobin 30.7 pg (28.0-34.0); Mean Corpuscular Volume 93.4 fl (81-99); Mean Platelet Volume 9.4 fL (7.4-10.4); Monocytes # 0.4 10^3/uL (0.2-0.9); Monocytes % 8.3 %; Neutrophils # 3.78 10^3/uL (1.8-7.7); Neutrophils % 71.5 %; Nucleated Red Blood Cells % 0 %; Platelet Count 244 10^3/cmm (130-400); Red Blood Count 4.37 10^6/uL (4.1-5.3); Red Cell Distribution Width 13.3 % (12.1-15.1); White Blood Count 5.3 10^3/uL (4.0-10.0)
[2022-03-27 09:12] LABS: Alanine Aminotransferase 13 U/L (0-33); Albumin Level 4.2 g/dL (3.5-5.2); Alkaline Phosphatase 88 IU/L (35-105); Anion Gap 13.6 (5-19); Aspartate Amino Transferase 13 U/L (0-32); Blood Urea Nitrogen 9 mg/dL (8-23); Calcium 8.6 mg/dL (8.5-10.5); Carbon Dioxide 25 mmol/L (22-29); Chloride 105 mmol/L (98-107); Glucose 93 mg/dL (65-115); Immunoglobulin IGG 558 mg/dL (700-1600); Osmolality Calculated 288 mOsm/kg (285-295); Potassium 3.6 mmol/L (3.5-5.1); Sodium 140 mmol/L (136-145); Total Bilirubin 0.4 mg/dL (0.15-1.2); Total Protein 6.2 g/dL (6.6-8.7)
[2022-03-27 09:18] LABS: Hepatitis A Antibody IgM Non-Reactive (Nonreactive); Hepatitis B Core AB, Total Non-Reactive (Nonreactive); Hepatitis B Surface Antigen Non-Reactive (Nonreactive); Hepatitis C Virus Antibody Non-Reactive (Nonreactive)
[2022-03-27 09:19] LABS: Hepatitis B Surface AB < 3.5 (11.5-1000)
--- NOTE | 2022-04-02 12:30 | CT_ITS ---
WS: [id number] CT CHEST WITH INTRAVENOUS CONTRAST HISTORY: Shortness of breath TECHNIQUE: Contiguous 5 mm axial imaging performed on the thorax. Coronal and sagittal reformats are submitted. All CT scans at [facility] use at least one of these dose optimization techniques: automated exposure control; mA and/or kV adjustment per patient size (includes targeted exams where dose is matched to clinical indication); or iterative reconstruction. CONTRAST: Omnipaque 300; 50 mL IV. DLP: 565.06 mGy.cm COMPARISON: 12/30/2021 and 07/08/2021 Significant motion artifact on this examination. Lungs and central airway: Hyperexpanded lungs with emphysema. Soft tissue mass centered at the AP win helga extending into the LEFT upper lobe is much smaller in size as compared to the prior examination. Mass now extends over a length of 2.5 cm and measures 2.8 x 1.2 cm. With the amount of motion that is present smaller nodules would be difficult to visualize. There is a new nodule in the LEFT lower lob e in the periphery measuring 5 mm. Pleura: Normal. No pleural effusion. Heart and pericardium: Mild cardiomegaly with no pericardial effusion. Mediastinum and lauri: No new or enlarging nodes. Vessels: Mild atherosclerosis aorta. Normal size pulmonary artery. Chest wall and lower neck: No soft tissue masses. Upper abdomen: Prior cholecystectomy. Hepatic and splenic granulomatous. No metastatic lesions are id entified within the liver. Normal portal vein. Bilateral renal cysts. Extensive atherosclerosis aorta . Intimal thickening and calcified plaque. Osseous structures: Increase in the thoracic kyphosis. Disc spaces are narrowed. CT/CT chest w con* [id number] IMPRESSION: 1. Continued decrease in size of the AP window mass with extension into the LE FT upper lobe. Mass now measures 2.8 x 1.2 cm x 2.5 cm. Compared to prior measu rement of 3.5 x 3.7 x 4.6 cm. 2. No new or increasing mediastinal lymph nodes. 3. New 5 mm noncalcified nodule at the LEFT lung base. Indeterminate for early metastatic lesion. Anticipate follow-up imaging for reevaluation. 4. Chronic emphysema. 5. Atherosclerosis aorta. 6. No adrenal mass.
[2022-04-02] MEDS: iohexol 300 mg/mL 100 mL Btl IV (14:18)
[2022-04-03 08:36] LABS: Basophils # 0.1 10^3/uL (0.0-0.1); Basophils % 0.7 %; Eosinophils # 0.2 10^3/uL (0.0-0.8); Eosinophils % 3.6 %; Hematocrit 41.1 % (37.0-47.0); Hemoglobin 13.4 g/dL (11.5-15.3); Lymphocytes # 0.8 10^3/uL (0.8-4.8); Lymphocytes % 12.3 %; Mean Corpuscular HGB Conc 32.6 g/dL (30.0-36.0); Mean Corpuscular Hemoglobin 29.9 pg (28.0-34.0); Mean Corpuscular Volume 91.7 fl (81-99); Mean Platelet Volume 9.3 fL (7.4-10.4); Monocytes # 0.5 10^3/uL (0.2-0.9); Monocytes % 7.2 %; Neutrophils # 5.07 10^3/uL (1.8-7.7); Neutrophils % 76.1 %; Nucleated Red Blood Cells % 0 %; Platelet Count 263 10^3/cmm (130-400); Red Blood Count 4.48 10^6/uL (4.1-5.3); Red Cell Distribution Width 13.5 % (12.1-15.1); White Blood Count 6.7 10^3/uL (4.0-10.0)
[2022-04-03 09:01] LABS: Alanine Aminotransferase 12 U/L (0-33); Albumin Level 4.2 g/dL (3.5-5.2); Alkaline Phosphatase 87 IU/L (35-105); Anion Gap 12.7 (5-19); Aspartate Amino Transferase 13 U/L (0-32); Blood Urea Nitrogen 13 mg/dL (8-23); Calcium 9.3 mg/dL (8.5-10.5); Carbon Dioxide 27 mmol/L (22-29); Chloride 105 mmol/L (98-107); Globulin 2.3 g/dL (1.3-4.6); Glucose 91 mg/dL (65-115); Osmolality Calculated 292 mOsm/kg (285-295); Potassium 3.7 mmol/L (3.5-5.1); Sodium 141 mmol/L (136-145); Total Bilirubin 0.4 mg/dL (0.15-1.2); Total Protein 6.5 g/dL (6.6-8.7)
== END 2022-04-08 23:59 | disposition home or self-care (01) ==
PROVIDERS: PCP Family Medicine; Visit Provider Nurse Practitioner Family
DX: C34.82 Malignant neoplasm of overlapping sites of left bronchus and lung (principal); J43.9 Emphysema, unspecified; F17.210 Nicotine dependence, cigarettes, uncomplicated; Z99.81 Dependence on supplemental oxygen; Z79.2 Long term (current) use of antibiotics; Z79.51 Long term (current) use of inhaled steroids; Z79.899 Other long term (current) drug therapy; Z92.21 Personal history of antineoplastic chemotherapy; Z92.3 Personal history of irradiation
CPT/HCPCS: 36591; 71260; 80053; 82784; 84443; 85025; 86705; 86706; 86709; 86803; 87340; 99215; 99999; Q9967

== ENCOUNTER 2022-05-06 13:43 | Oncology outpatient (recurring) (ONCR) | payer MEDICARE, MEDICAID, SELFPAY ==
[2022-05-06 14:05] VITALS: BP 138/68; PULSE 82; RESP 18; TEMP 36.8; O2SAT 98
== END 2022-05-08 23:59 | disposition home or self-care (01) ==
PROVIDERS: PCP Family Medicine; Visit Provider Nurse Practitioner Family
DX: Z45.2 Encounter for adjustment and management of vascular access device (principal)
CPT/HCPCS: 96523

== ENCOUNTER 2022-06-04 12:56 | Oncology outpatient (recurring) (ONCR) | payer MEDICARE, MEDICAID, SELFPAY ==
[2022-06-04 13:53] LABS: Basophils % 0.7 %; Eosinophils # 0.2 10^3/uL (0.0-0.8); Hematocrit 40.3 % (37.0-47.0); Hemoglobin 12.9 g/dL (11.5-15.3); Lymphocytes # 1.2 10^3/uL (0.8-4.8); Lymphocytes % 21.9 %; Mean Corpuscular Hemoglobin 29.5 pg (28.0-34.0); Mean Corpuscular Volume 92.2 fl (81-99); Mean Platelet Volume 9.7 fL (7.4-10.4); Monocytes # 0.5 10^3/uL (0.2-0.9); Monocytes % 8.6 %; Neutrophils # 3.54 10^3/uL (1.8-7.7); Neutrophils % 64.6 %; Nucleated Red Blood Cells % 0 %; Platelet Count 256 10^3/cmm (130-400); Red Blood Count 4.37 10^6/uL (4.1-5.3); Red Cell Distribution Width 13.2 % (12.1-15.1); White Blood Count 5.5 10^3/uL (4.0-10.0)
[2022-06-04 14:04] LABS: Alanine Aminotransferase 19 U/L (0-33); Albumin Level 4.1 g/dL (3.5-5.2); Alkaline Phosphatase 88 IU/L (35-105); Anion Gap 12.8 (5-19); Aspartate Amino Transferase 21 U/L (0-32); Blood Urea Nitrogen 8 mg/dL (8-23); Calcium 9.2 mg/dL (8.5-10.5); Carbon Dioxide 26 mmol/L (22-29); Chloride 107 mmol/L (98-107); Globulin 2.4 g/dL (1.3-4.6); Glucose 91 mg/dL (65-115); Osmolality Calculated 292 mOsm/kg (285-295); Potassium 3.8 mmol/L (3.5-5.1); Sodium 142 mmol/L (136-145); Total Bilirubin 0.3 mg/dL (0.15-1.2); Total Protein 6.5 g/dL (6.6-8.7)
== END 2022-06-08 23:59 | disposition home or self-care (01) ==
LOC: ONCMED 12:57
PROVIDERS: Internal Medicine Hematology & Oncology; PCP Family Medicine; Visit Provider Nurse Practitioner Family
DX: C34.92 Malignant neoplasm of unspecified part of left bronchus or lung (principal); C34.90 Malignant neoplasm of unspecified part of unspecified bronchus or lung; R91.8 Other nonspecific abnormal finding of lung field
CPT/HCPCS: 36591; 80053; 85025

== ENCOUNTER 2022-07-04 08:00 | Oncology outpatient (recurring) (ONCR) | payer MEDICARE, MEDICAID, SELFPAY ==
[2022-07-01] MEDS: iohexol 350 mg/mL 100 mL Btl IV (11:07)
--- NOTE | 2022-07-01 12:00 | CT_ITS ---
WS: [id number] CT CHEST WITH INTRAVENOUS CONTRAST HISTORY: Follow-up lung cancer. TECHNIQUE: Contiguous 5 mm axial imaging performed on the thorax. Coronal and sagittal reformats are submitted. All CT scans at [facility] use at least one of these dose optimization techniques: automated exposure control; mA and/or kV adjustment per patient size (includes targeted exams where dose is matched to clinical indication); or iterative reconstruction. CONTRAST: Omnipaque 350; 75 mL IV. DLP: 508.39 mGy.cm COMPARISON: 04/02/2022 and 12/30/2021 Lungs and central airway: Chronic emphysematous changes. Soft tissue mass at the AP window and extend ing along the medial LEFT upper mediastinum is unchanged. No progression of the soft tissue mass. Res idual component adjacent to the aorta is stable at 2.8 cm. Very small amount of soft tissue persistin g at the AP window measuring 1.6 x 1.8 cm with no increase in size. Recently described 5 mm nodule at the LEFT lung base is not evident on today's study. New tree-in-bud airspace disease in the RIGHT mi ddle lobe. Pleura: Normal. No pleural effusion. Heart and pericardium: Mild cardiomegaly. Small amount of pericardial thickening. Mediastinum and lauri: Mild lymphoid tissue at the hilar regions into the mediastinum but no increase in size. No new lymph nodes. Vessels: Mild atherosclerosis aorta. Slightly enlarged pulmonary artery. Chest wall and lower neck: Right-sided Port-A-Cath. Upper abdomen: Prior cholecystectomy. No adrenal mass. Splenic granulomata. Extensive atherosclerotic plaque in the visualized abdominal aorta. Osseous structures: Increase in thoracic kyphosis. CT/CT chest w con* [id number] IMPRESSION: 1. No increase in size or change in the residual posttreatment soft tissue at the AP window and extending along the LEFT mediastinum since the most recent ex amination of 04/02/2022. Significant improvement since 12/30/2021. 2. Previously described 5 mm nodule in the LEFT lower lobe is not evident toda y. 3. New tree-in-bud airspace disease in the RIGHT middle lobe. Differential inc ludes aspiration pneumonia and endobronchial pneumonia. 4. No new mediastinal or hilar adenopathy. 5. Normal adrenal glands. 6. Prior cholecystectomy.
[2022-07-04] MEDS: sodium chloride 0.9% 500 ML 999 ML IV (08:25)
[2022-07-04 08:39] LABS: Basophils % 0.4 %; Eosinophils # 0.1 10^3/uL (0.0-0.8); Hemoglobin 13.1 g/dL (11.5-15.3); Lymphocytes # 0.7 10^3/uL (0.8-4.8); Lymphocytes % 9.6 %; Mean Corpuscular HGB Conc 33.6 g/dL (30.0-36.0); Mean Corpuscular Hemoglobin 30.2 pg (28.0-34.0); Mean Corpuscular Volume 89.9 fl (81-99); Mean Platelet Volume 9.9 fL (7.4-10.4); Monocytes # 0.7 10^3/uL (0.2-0.9); Monocytes % 9.8 %; Neutrophils # 5.48 10^3/uL (1.8-7.7); Neutrophils % 78.9 %; Nucleated Red Blood Cells % 0 %; Platelet Count 206 10^3/cmm (130-400); Red Blood Count 4.34 10^6/uL (4.1-5.3); Red Cell Distribution Width 12.9 % (12.1-15.1)
[2022-07-04 09:09] LABS: Alanine Aminotransferase 11 U/L (0-33); Albumin Level 4.2 g/dL (3.5-5.2); Alkaline Phosphatase 89 U/L (35-105); Anion Gap 15.9 (5-19); Aspartate Amino Transferase 15 U/L (0-32); Blood Urea Nitrogen 8 mg/dL (8-23); Calcium 9.4 mg/dL (8.5-10.5); Carbon Dioxide 24 mmol/L (22-29); Chloride 99 mmol/L (98-107); Globulin 2.6 g/dL (1.3-4.6); Glucose 88 mg/dL (65-115); Osmolality Calculated 278 mOsm/kg (285-295); Potassium 3.9 mmol/L (3.5-5.1); Sodium 135 mmol/L (136-145); Total Bilirubin 0.4 mg/dL (0.15-1.2); Total Protein 6.8 g/dL (6.6-8.7)
[2022-07-04 10:16] LABS: SARS Covid-2 Antigen Negative (Negative)
== END 2022-07-09 23:59 | disposition home or self-care (01) ==
PROVIDERS: PCP Family Medicine; Visit Provider Nurse Practitioner Family
DX: C34.92 Malignant neoplasm of unspecified part of left bronchus or lung; R91.8 Other nonspecific abnormal finding of lung field; J06.9 Acute upper respiratory infection, unspecified; R53.1 Weakness; R53.83 Other fatigue; F17.210 Nicotine dependence, cigarettes, uncomplicated; J43.9 Emphysema, unspecified; Z79.52 Long term (current) use of systemic steroids; Z20.822 Contact with and (suspected) exposure to COVID-19
CPT/HCPCS: 71260; 80053; 85025; 87426; 96365; 99214; J7040

== ENCOUNTER 2022-07-25 15:26 | Outpatient (CLI) | payer MEDICARE, MEDICAID, SELFPAY ==
--- NOTE | 2022-07-25 | CTR_ITS ---
PROCEDURE INFORMATION: Exam: CT Abdomen And Pelvis With Contrast Exam date and time: 07/25/2022 5:13 PM Age: 72 years old Clinical indication: Abdominal pain; Epigastric; Prior surgery; Surgery date: 6+ months; Surgery type: Gb, hyst; Patient HX: Lung cancer; Additional info: Epigastric pain TECHNIQUE: Imaging protocol: Computed tomography of the abdomen and pelvis with contrast. Radiation optimization: All CT scans at this facility use at least one of these dose optimization techniques: automated exposure control; mA and/or kV adjustment per patient size (includes targeted exams where dose is matched to clinical indication); or iterative reconstruction. Contrast material: OMNI 350; Contrast volume: 80 ml; Contrast route: INTRAVENOUS (IV); Other contrast: Oral, readicat barium diluted, 900ml; COMPARISON: CT chest w con* [id number] 07/01/2022 10:58 AM RADIATION DOSE METRICS: Total DLP (mGy-cm): 783.63 FINDINGS: Lungs: Calcified granulomas noted in the lung bases. Patchy densities again noted in the lateral segment of the right middle lobe overall decreased compared to prior exam. Liver: The liver is normal in size and contour. Gallbladder and bile ducts: The gallbladder is surgically absent. No intra- or extra-hepatic biliary ductal dilatation identified. Pancreas: The pancreas appears normal. Spleen: Multiple splenic granulomas noted. Adrenal glands: The adrenals appear normal. Kidneys and ureters: Fluid density cyst in the kidneys noted. Stomach and bowel: The stomach appears unremarkable. The small bowel loops are not abnormally dilated. The large bowel loops are not abnormally dilated. Appendix: The appendix is not readily identified. No inflammatory changes identified in the region of the cecum. Intraperitoneal space: No ascites or significant fluid collection. Vasculature: The infrarenal abdominal aorta measures up to 2.9 cm in diameter. Lymph nodes: There are no enlarged lymph nodes. Urinary bladder: The bladder is distended and demonstrates no focal contour abnormality. Reproductive: The uterus is surgically absent. Bones/joints: Unremarkable. Soft tissues: Unremarkable. CT/CT abdomen pelvis w con* [id number] IMPRESSION: 1. No acute abdominopelvic abnormality identified. 2. Patchy densities again noted in the lateral segment of the right middle lobe overall decreased compared to prior exam. 3. Ectatic infrarenal abdominal aorta measuring up to 2.9 cm in diameter. COMMENTS: Consistent with the [employer] [place] [employer]'s Incidental Findings Committee white paper (J Am Fred Radiol 2018): Any incidental renal lesion less than 1 cm or classified as too small to characterize, or any incidental cystic renal lesion characterized as simple-appearing, is likely benign. No follow-up imaging is recommended for these lesions per consensus recommendations based on imaging criteria.
[2022-07-25] MEDS: iohexol 350 mg/mL 100 mL Btl IV (16:01)
== END 2022-07-25 15:27 | disposition home or self-care (01) ==
LOC: RAD 15:27
PROVIDERS: PCP Family Medicine; Visit Provider Family Medicine
DX: R10.13 Epigastric pain (principal); I77.811 Abdominal aortic ectasia
CPT/HCPCS: 74177

== ENCOUNTER 2022-09-24 12:07 | Outpatient (CLI) | payer MEDICARE, MEDICAID, SELFPAY ==
--- NOTE | 2022-09-24 13:00 | CT_ITS ---
WS: [email or web address] CT CHEST TECHNIQUE: Contrast enhanced CT of the chest with coronal and sagittal reformatted images. CLINICAL INFORMATION: surveillance COMPARISON: CT chest July 01, 2022 DLP: 489.[address] scans at [facility] use at least one of these dose optimization techniques: automated e xposure control; mA and/or kV adjustment per patient size (includes targeted exams where dose is matc hed to clinical indication); or iterative reconstruction. FINDINGS: Moderate to advanced chronic emphysematous changes. Stable postoperative and treatment-rela cortez changes involving the LEFT superior hilum extending into the LEFT upper lobe. Residual soft tissu e thickening along the aortic arch and AP window is unchanged in appearance. Interstitial thickening extending into the LEFT upper lobe likely due to treatment-related changes and fibrosis. No mediastin al or hilar lymphadenopathy.New subsegmental atelectasis with partial collapse RIGHT middle lobe. Thi s is new from previous. Previously described tree-in-bud infiltrates in RIGHT middle lobe have resolv ed. Bronchovascular thickening along the RIGHT middle lobe bronchus with air bronchograms and secreti ons. No visualized underlying proximal endobronchial mass. Consider further evaluation with bronchosc opy. Recommend [address] follow-up. Normal caliber thoracic aorta. Aortic calcification. Coronary calcification. Thyroid gland is normal. No axillary lymphadenopathy. Adrenal glands are normal. Small bilateral renal cysts. Portal vein and splenic vein are patent. Moderate thoracic kyphosis. Previously described tree-in-bud infiltrates in the RIGHT middle lobe have resolved. No new suspicious pulmonary parenchymal opacities. Chronic anterior wedging in the mid thoracic spine . CT/CT chest w con* [id number] IMPRESSION: 1. Stable postoperative and treatment-related changes LEFT upper lobe extendin g along the LEFT superior hilum is stable. Stable soft tissue tissue thickening along the mediastinum and AP window. 2. New subsegmental atelectasis with partial collapse RIGHT middle lobe. This is new from previous. No definite visualized underlying bronchial mass. Recomme nd [address] follow-up and/or bronchoscopy in further evaluation. 3. Interstitial fibrosis LEFT upper lobe extending to the lung apex likely due to treatment-related changes. This is stable compared to previous. 4. No mediastinal or hilar lymphadenopathy.
[2022-09-24 13:11] LABS: Blood Urea Nitrogen 7 mg/dL (8-23)
[2022-09-24] MEDS: iohexol 350 mg/mL 100 mL Btl IV (13:23)
== END 2022-09-24 12:08 | disposition home or self-care (01) ==
LOC: RAD 12:08
PROVIDERS: PCP Family Medicine; Visit Provider Nurse Practitioner Family
DX: C34.92 Malignant neoplasm of unspecified part of left bronchus or lung (principal); Z98.890 Other specified postprocedural states; J98.11 Atelectasis; J84.10 Pulmonary fibrosis, unspecified
CPT/HCPCS: 71260; 82565; 84520; Q9967

== ENCOUNTER 2022-09-30 09:42 | Oncology outpatient (recurring) (ONCR) | payer MEDICARE, MEDICAID, SELFPAY ==
[2022-09-30 10:07] LABS: Basophils # 0.1 10^3/uL (0.0-0.1); Basophils % 0.9 %; Eosinophils # 0.2 10^3/uL (0.0-0.8); Eosinophils % 2.6 %; Hematocrit 41.6 % (37.0-47.0); Hemoglobin 13.3 g/dL (11.5-15.3); Lymphocytes # 1.4 10^3/uL (0.8-4.8); Lymphocytes % 21.8 %; Mean Corpuscular Volume 90.8 fl (81-99); Mean Platelet Volume 9.2 fL (7.4-10.4); Monocytes # 0.6 10^3/uL (0.2-0.9); Monocytes % 9.3 %; Neutrophils # 4.18 10^3/uL (1.8-7.7); Neutrophils % 65.2 %; Nucleated Red Blood Cells % 0 %; Platelet Count 264 10^3/cmm (130-400); Red Blood Count 4.58 10^6/uL (4.1-5.3); Red Cell Distribution Width 13.9 % (12.1-15.1); White Blood Count 6.4 10^3/uL (4.0-10.0)
[2022-09-30 10:24] LABS: Alanine Aminotransferase 10 U/L (0-33); Albumin Level 3.8 g/dL (3.5-5.2); Alkaline Phosphatase 97 U/L (35-105); Anion Gap 12.2 (5-19); Aspartate Amino Transferase 12 U/L (0-32); Blood Urea Nitrogen 9 mg/dL (8-23); Calcium 8.8 mg/dL (8.5-10.5); Carbon Dioxide 26 mmol/L (22-29); Chloride 103 mmol/L (98-107); Globulin 2.5 g/dL (1.3-4.6); Glucose 72 mg/dL (65-115); Osmolality Calculated 281 mOsm/kg (285-295); Potassium 4.2 mmol/L (3.5-5.1); Sodium 137 mmol/L (136-145); Total Bilirubin 0.2 mg/dL (0.15-1.2); Total Protein 6.3 g/dL (6.6-8.7)
== END 2022-10-08 23:59 | disposition home or self-care (01) ==
PROVIDERS: Internal Medicine Hematology & Oncology; PCP Family Medicine; Visit Provider Nurse Practitioner Family
DX: C34.82 Malignant neoplasm of overlapping sites of left bronchus and lung (principal); J43.9 Emphysema, unspecified; F17.210 Nicotine dependence, cigarettes, uncomplicated; J84.178 Other interstitial pulmonary diseases with fibrosis in diseases classified elsewhere; Z99.81 Dependence on supplemental oxygen; Z79.51 Long term (current) use of inhaled steroids; J98.11 Atelectasis; Z79.899 Other long term (current) drug therapy; Z92.3 Personal history of irradiation; Z92.21 Personal history of antineoplastic chemotherapy
CPT/HCPCS: 36591; 80053; 85025; 99214

== ENCOUNTER 2022-10-28 10:40 | Oncology outpatient (recurring) (ONCR) | payer MEDICARE, MEDICAID, SELFPAY ==
[2022-10-28 10:49] VITALS: BP 137/82; PULSE 81; RESP 16; TEMP 36.4; O2SAT 95
== END 2022-11-08 23:59 | disposition home or self-care (01) ==
PROVIDERS: PCP Family Medicine; Visit Provider Nurse Practitioner Family
DX: Z45.2 Encounter for adjustment and management of vascular access device; Z95.828 Presence of other vascular implants and grafts
CPT/HCPCS: 96523

== ENCOUNTER 2022-11-28 10:45 | Oncology outpatient (recurring) (ONCR) | payer MEDICARE, MEDICAID, SELFPAY | END 2022-12-09 23:59 | disposition home or self-care (01) | PROVIDERS: PCP Family Medicine; Visit Provider Nurse Practitioner Family | DX: Z45.2 Encounter for adjustment and management of vascular access device; Z95.828 Presence of other vascular implants and grafts | CPT/HCPCS: 96523 ==

== ENCOUNTER 2022-12-30 15:11 | Outpatient (CLI) | payer MEDICARE, MEDICAID, SELFPAY ==
--- NOTE | 2022-12-30 15:30 | CT_ITS ---
WS: [email or web address] CT CHEST TECHNIQUE: Contrast enhanced CT of the chest with coronal and sagittal reformatted images. CLINICAL INFORMATION: Special attention Right middle lobe COMPARISON: CT chest September 24, 2022 DLP: 200.[address] scans at [facility] use at least one of these dose optimization techniques: automated e xposure control; mA and/or kV adjustment per patient size (includes targeted exams where dose is matc hed to clinical indication); or iterative reconstruction. FINDINGS: Moderate to advanced chronic emphysematous changes. Stable postoperative and treatment-related change s involving the LEFT superior hilum extending into the LEFT upper lobe. Small amount of soft tissue t hickening along the aortic arch and AP window is unchanged. Treatment-related changes and fibrosis in the LEFT upper lobe with interstitial thickening. No mediastinal or hilar lymphadenopathy. Previously described partial collapse of the RIGHT middle lo be has resolved compared to previous.Small nodule or calcified granuloma RIGHT middle lobe measuring 3 mm appears stable Normal caliber thoracic aorta. Proximal main pulmonary arteries are normal. Normal visualized thyroid . Aortic calcification. Coronary calcification. Thyroid gland is normal. No axillary lymphadenopathy. Adrenal glands are normal. Small bilateral renal cysts. Portal vein and splenic vein are patent. Mod erate thoracic kyphosis. Splenic granulomas. Chronic anterior wedging in the mid thoracic spine. CT/CT chest w con* [id number] IMPRESSION: 1. Stable postoperative and treatment-related changes LEFT upper lobe extendin g along the LEFT superior hilum is stable. No evidence of progression. 2. Stable soft tissue tissue thickening along the mediastinum and AP window. 3. Previously described RIGHT middle lobe collapse has resolved. RIGHT middle lobe normally aerated today. 4. Stable interstitial thickening and fibrosis in the LEFT upper lobe extendin g to the lung apex compatible with treatment-related changes. 5. No mediastinal or hilar lymphadenopathy.
== END 2022-12-30 15:12 | disposition home or self-care (01) ==
LOC: RAD 15:11
PROVIDERS: PCP Family Medicine; Visit Provider Internal Medicine Hematology & Oncology
DX: C34.92 Malignant neoplasm of unspecified part of left bronchus or lung (principal)
CPT/HCPCS: 71260; Q9967

== ENCOUNTER 2023-01-01 10:47 | Oncology outpatient (recurring) (ONCR) | payer MEDICARE, MEDICAID, SELFPAY ==
[2023-01-01 11:27] LABS: Basophils # 0.1 10^3/uL (0.0-0.1); Eosinophils # 0.2 10^3/uL (0.0-0.8); Eosinophils % 2.7 %; Hematocrit 40.6 % (37.0-47.0); Hemoglobin 13.1 g/dL (11.5-15.3); Lymphocytes # 1.4 10^3/uL (0.8-4.8); Mean Corpuscular HGB Conc 32.3 g/dL (30.0-36.0); Mean Corpuscular Hemoglobin 29.3 pg (28.0-34.0); Mean Corpuscular Volume 90.8 fl (81-99); Mean Platelet Volume 9.3 fL (7.4-10.4); Monocytes # 0.5 10^3/uL (0.2-0.9); Monocytes % 8.7 %; Neutrophils # 4.07 10^3/uL (1.8-7.7); Neutrophils % 65.3 %; Nucleated Red Blood Cells % 0 %; Platelet Count 264 10^3/cmm (130-400); Red Blood Count 4.47 10^6/uL (4.1-5.3); Red Cell Distribution Width 13.7 % (12.1-15.1); White Blood Count 6.2 10^3/uL (4.0-10.0)
[2023-01-01 11:41] LABS: Alanine Aminotransferase 22 U/L (0-33); Albumin Level 4.2 g/dL (3.5-5.2); Alkaline Phosphatase 93 U/L (35-105); Anion Gap 13.9 (5-19); Aspartate Amino Transferase 18 U/L (0-32); Blood Urea Nitrogen 9 mg/dL (8-23); Calcium 9.3 mg/dL (8.5-10.5); Carbon Dioxide 26 mmol/L (22-29); Chloride 100 mmol/L (98-107); Globulin 2.2 g/dL (1.3-4.6); Glucose 87 mg/dL (65-115); Osmolality Calculated 280 mOsm/kg (285-295); Potassium 3.9 mmol/L (3.5-5.1); Sodium 136 mmol/L (136-145); Total Bilirubin 0.3 mg/dL (0.15-1.2); Total Protein 6.4 g/dL (6.6-8.7)
== END 2023-01-06 23:59 | disposition home or self-care (01) ==
PROVIDERS: PCP Family Medicine; Visit Provider Internal Medicine Hematology & Oncology
DX: C34.82 Malignant neoplasm of overlapping sites of left bronchus and lung (principal); J43.9 Emphysema, unspecified; F17.210 Nicotine dependence, cigarettes, uncomplicated; J84.178 Other interstitial pulmonary diseases with fibrosis in diseases classified elsewhere; Z99.81 Dependence on supplemental oxygen; Z79.51 Long term (current) use of inhaled steroids; J98.11 Atelectasis; Z79.899 Other long term (current) drug therapy; Z79.2 Long term (current) use of antibiotics; Z92.21 Personal history of antineoplastic chemotherapy; Z92.3 Personal history of irradiation
CPT/HCPCS: 36415; 80053; 85025; 99214

== ENCOUNTER 2023-01-29 13:38 | Oncology outpatient (recurring) (ONCR) | payer MEDICARE, MEDICAID, SELFPAY ==
[2023-01-29 13:53] VITALS: BP 116/66; PULSE 79; RESP 16; TEMP 36.8; O2SAT 95
== END 2023-02-06 23:59 | disposition home or self-care (01) ==
LOC: ONCMED 13:38
PROVIDERS: PCP Family Medicine; Visit Provider Internal Medicine Hematology & Oncology
DX: Z45.2 Encounter for adjustment and management of vascular access device; Z95.828 Presence of other vascular implants and grafts
CPT/HCPCS: 96523

== ENCOUNTER 2023-02-26 13:39 | Oncology outpatient (recurring) (ONCR) | payer MEDICARE, MEDICAID, SELFPAY ==
[2023-02-26 14:14] VITALS: BP 109/63; PULSE 74; RESP 16; TEMP 36.9; O2SAT 92
== END 2023-03-08 23:59 | disposition home or self-care (01) ==
LOC: ONCMED 13:39
PROVIDERS: PCP Family Medicine; Visit Provider Internal Medicine Hematology & Oncology
DX: Z45.2 Encounter for adjustment and management of vascular access device; Z95.828 Presence of other vascular implants and grafts

== ENCOUNTER 2023-03-26 13:57 | Oncology outpatient (recurring) (ONCR) | payer MEDICARE, MEDICAID, SELFPAY ==
[2023-03-26 14:01] VITALS: BP 111/65; PULSE 72; O2SAT 95
== END 2023-04-08 23:59 | disposition home or self-care (01) ==
PROVIDERS: PCP Family Medicine; Visit Provider Internal Medicine Hematology & Oncology
DX: Z45.2 Encounter for adjustment and management of vascular access device (principal)
CPT/HCPCS: 96523; J1642

== ENCOUNTER 2023-04-22 10:13 | Outpatient (CLI) | payer MEDICARE, MEDICAID, SELFPAY ==
[2023-04-22 10:51] LABS: Blood Urea Nitrogen 9 mg/dL (8-23)
[2023-04-22] MEDS: iohexol 350 mg/mL 500 mL Btl (per mL) IV (11:04)
--- NOTE | 2023-04-22 13:00 | CT_ITS ---
WS: [email or web address] CT CHEST TECHNIQUE: Contrast enhanced CT of the chest with coronal and sagittal reformatted images. CLINICAL INFORMATION: Follow up COMPARISON: CT chest December 30, 2022 DLP: 151.[address] scans at [facility] use at least one of these dose optimization techniques: automated e xposure control; mA and/or kV adjustment per patient size (includes targeted exams where dose is matc hed to clinical indication); or iterative reconstruction. FINDINGS:Stable postoperative and treatment-related changes LEFT upper lobe extending along the LEFT superior hilum is stable. No evidence of progression. Stable soft tissue tissue thickening along the mediastinum and AP window. Tiny nodule LEFT upper lobe anteriorly appears new from previous measuring 5.3 mm. Recommend 6 month follow-up Calcified granuloma LEFT lower lobe and RIGHT lower lobe. Calcified granuloma RIGHT upper lobe latera lly. Coronary calcification. Moderate chronic emphysematous changes. Normal caliber thoracic aorta. Aortic calcification. Normal c aliber descending thoracic aorta. Adrenal glands are normal. Small bilateral renal cysts. Diffuse fat ty infiltration liver. Cholecystectomy clips. Normal portal vein and splenic vein. Splenic granulomas . Normal GE junction. Moderate thoracic kyphosis. Hypertrophic changes in the mid thoracic spine. IMPRESSION: 1. Stable postoperative and treatment-related changes LEFT upper lobe extending along the LEFT super ior hilum is stable. No evidence of progression. 2. Stable soft tissue tissue thickening along the mediastinum and AP window. 3. Small nodule LEFT upper lobe anteriorly appears new from previous measuring 5.3 mm. Recommend 6 m onth follow-up 4. Interstitial thickening and fibrosis in the LEFT upper lobe extending to the lung apex compatible with treatment-related changes. 5. No mediastinal or hilar lymphadenopathy.
== END 2023-04-22 10:14 | disposition home or self-care (01) ==
LOC: RAD 10:14
PROVIDERS: PCP Family Medicine; Visit Provider Internal Medicine Hematology & Oncology
DX: C34.92 Malignant neoplasm of unspecified part of left bronchus or lung (principal)
CPT/HCPCS: 71260; 82565; 84520; Q9967

== ENCOUNTER 2023-04-30 10:59 | Oncology outpatient (recurring) (ONCR) | payer MEDICARE, MEDICAID, SELFPAY ==
[2023-04-30 11:09] VITALS: BP 151/74; PULSE 67; RESP 18; TEMP 36.1; O2SAT 91
[2023-04-30 11:39] LABS: Alanine Aminotransferase 13 U/L (0-33); Albumin Level 4.1 g/dL (3.5-5.2); Alkaline Phosphatase 91 U/L (35-105); Aspartate Amino Transferase 15 U/L (0-32); Blood Urea Nitrogen 8 mg/dL (8-23); Carbon Dioxide 25 mmol/L (22-29); Chloride 105 mmol/L (98-107); Globulin 2.2 g/dL (1.3-4.6); Glucose 78 mg/dL (65-115); Osmolality Calculated 285 mOsm/kg (285-295); Sodium 139 mmol/L (136-145); Total Bilirubin 0.3 mg/dL (0.15-1.2); Total Protein 6.3 g/dL (6.6-8.7)
[2023-04-30 11:40] LABS: Basophils % 0.7 %; Eosinophils # 0.2 10^3/uL (0.0-0.8); Eosinophils % 3.3 %; Hematocrit 40.3 % (37.0-47.0); Lymphocytes # 1.6 10^3/uL (0.8-4.8); Lymphocytes % 25.4 %; Mean Corpuscular HGB Conc 32.3 g/dL (30.0-36.0); Mean Corpuscular Hemoglobin 29.8 pg (28.0-34.0); Mean Corpuscular Volume 92.4 fl (81-99); Mean Platelet Volume 9.5 fL (7.4-10.4); Monocytes # 0.5 10^3/uL (0.2-0.9); Monocytes % 8.3 %; Neutrophils # 3.79 10^3/uL (1.8-7.7); Neutrophils % 61.8 %; Nucleated Red Blood Cells % 0 %; Platelet Count 266 10^3/cmm (130-400); Red Blood Count 4.36 10^6/uL (4.1-5.3); White Blood Count 6.1 10^3/uL (4.0-10.0)
== END 2023-05-08 23:59 | disposition home or self-care (01) ==
PROVIDERS: PCP Family Medicine; Visit Provider Internal Medicine Hematology & Oncology
DX: C34.82 Malignant neoplasm of overlapping sites of left bronchus and lung (principal); J43.9 Emphysema, unspecified; F17.210 Nicotine dependence, cigarettes, uncomplicated; J84.178 Other interstitial pulmonary diseases with fibrosis in diseases classified elsewhere; Z99.81 Dependence on supplemental oxygen; Z79.51 Long term (current) use of inhaled steroids; J98.11 Atelectasis; Z79.899 Other long term (current) drug therapy; Z92.3 Personal history of irradiation; Z92.21 Personal history of antineoplastic chemotherapy; C34.92 Malignant neoplasm of unspecified part of left bronchus or lung; R91.8 Other nonspecific abnormal finding of lung field; J06.9 Acute upper respiratory infection, unspecified; R53.1 Weakness; R53.83 Other fatigue; Z79.52 Long term (current) use of systemic steroids; Z20.822 Contact with and (suspected) exposure to COVID-19; C34.90 Malignant neoplasm of unspecified part of unspecified bronchus or lung; Z45.2 Encounter for adjustment and management of vascular access device; Z95.828 Presence of other vascular implants and grafts
CPT/HCPCS: 36591; 80053; 85025; 99214; J1642

== ENCOUNTER 2023-05-28 09:14 | Oncology outpatient (recurring) (ONCR) | payer MEDICARE, MEDICAID, SELFPAY ==
[2023-05-28 09:23] VITALS: BP 147/69; PULSE 80; RESP 18; TEMP 36.7; O2SAT 99
== END 2023-06-08 23:59 | disposition home or self-care (01) ==
LOC: ONCMED 09:14
PROVIDERS: PCP Family Medicine; Visit Provider Internal Medicine Hematology & Oncology
DX: Z45.2 Encounter for adjustment and management of vascular access device (principal)
CPT/HCPCS: 96523; J1642

== ENCOUNTER 2023-06-25 15:18 | Oncology outpatient (recurring) (ONCR) | payer MEDICARE, MEDICAID, SELFPAY ==
[2023-06-25 15:21] VITALS: BP 113/74; PULSE 81; RESP 18; TEMP 36.6; O2SAT 95
== END 2023-07-09 23:59 | disposition home or self-care (01) ==
PROVIDERS: PCP Family Medicine; Visit Provider Internal Medicine Hematology & Oncology
DX: Z45.2 Encounter for adjustment and management of vascular access device (principal)
CPT/HCPCS: 96523; J1642

== ENCOUNTER 2023-07-23 09:17 | Oncology outpatient (recurring) (ONCR) | payer MEDICARE, MEDICAID, SELFPAY ==
[2023-07-23 10:04] VITALS: BP 108/66; PULSE 79; RESP 16; TEMP 37.1; O2SAT 96
== END 2023-08-08 23:59 | disposition home or self-care (01) ==
PROVIDERS: PCP Family Medicine; Visit Provider Internal Medicine Hematology & Oncology
DX: Z45.2 Encounter for adjustment and management of vascular access device (principal); Z53.9 Procedure and treatment not carried out, unspecified reason
CPT/HCPCS: 96523; J1642

== ENCOUNTER 2023-08-20 09:13 | Oncology outpatient (recurring) (ONCR) | payer MEDICARE, MEDICAID, SELFPAY ==
[2023-08-20 09:28] VITALS: BP 111/72; PULSE 82; RESP 18; TEMP 36.4; O2SAT 95
[2023-08-20 09:30] VITALS: BMI 21.2
== END 2023-09-08 23:59 | disposition home or self-care (01) ==
PROVIDERS: PCP Family Medicine; Visit Provider Internal Medicine Medical Oncology
DX: Z45.2 Encounter for adjustment and management of vascular access device (principal)
CPT/HCPCS: 96523; J1642

== ENCOUNTER 2023-09-17 09:09 | Oncology outpatient (recurring) (ONCR) | payer MEDICARE, MEDICAID, SELFPAY ==
[2023-09-17 09:30] VITALS: BP 130/72; PULSE 80; RESP 17; TEMP 36.8; O2SAT 94
== END 2023-10-08 23:59 | disposition home or self-care (01) ==
PROVIDERS: PCP Family Medicine; Visit Provider Internal Medicine Medical Oncology
DX: Z45.2 Encounter for adjustment and management of vascular access device (principal)
CPT/HCPCS: 96523; J1642

== ENCOUNTER 2023-10-19 09:40 | Outpatient (CLI) | payer MEDICARE, MEDICAID, SELFPAY ==
--- NOTE | 2023-10-19 10:14 | CT_ITS ---
WS: [email or web address] CT chest w con* [id number] HISTORY: follow up lung cancer. TECHNIQUE: Axial imaging performed through the thorax. Coronal and sagittal reformats are submitted. All CT scans at [facility] use at least one of these dose optimization techniques: automated exposure control; mA and/or kV adjustment per patient size (includes targeted exams where dose is mat ched to clinical indication); or iterative reconstruction. CONTRAST: Omnipaque 350; 100 mL IV. DLP: 200.61 mGy.cm COMPARISON: 04/22/2023 and 12/30/2022 Lungs and central airway: Mild volume loss LEFT upper lobe. Long-term stability of a spiculated soft tissue mass in the medial LEFT upper lobe from treated neoplasm. The soft tissue component and the sp iculation are stable over several prior examinations. Soft tissue thickening extends to the periaorti c region and into the AP window. Superimposed changes on moderate to severe centrilobular emphysema. No new mass or nodule. Benign granuloma LEFT lower lobe. 3 mm micronodule adjacent to the minor fissu re is stable. Pleura: Normal. No pleural effusion. Heart and pericardium: Mild enlargement of the heart. Small pericardial effusion. Mediastinum and lauri: Mild soft tissue thickening at the hilar regions and extending along the aortic arch are stable. Vessels: Moderate atherosclerosis aorta. No aneurysm. Normal sized pulmonary artery. Chest wall and lower neck: Right-sided Mediport. Upper abdomen: Prior cholecystectomy. Bilateral renal cysts. No solid mass. The visualized liver is n egative. Small hiatal hernia. Osseous structures: Moderate increase in thoracic kyphosis. No destructive bone lesions. IMPRESSION: 1. Long-term stability treated neoplasm in the medial LEFT upper lobe. The spiculation and mediastina l soft tissue prominence is stable over several prior prior CT examinations. No new mass or increasin g spiculation. 2. No mediastinal or hilar adenopathy. 3. Small pericardial effusion. 4. Moderate atherosclerosis aorta. 5. Prior cholecystectomy.
[2023-10-19 10:26] LABS: Blood Urea Nitrogen 9 mg/dL (8-23)
[2023-10-19] MEDS: iohexol 350 mg/mL 500 mL Btl (per mL) IV (10:34)
== END 2023-10-19 09:41 | disposition home or self-care (01) ==
LOC: RAD 09:41
PROVIDERS: Nurse Practitioner Family; PCP Family Medicine; Visit Provider Internal Medicine Hematology & Oncology
DX: C34.12 Malignant neoplasm of upper lobe, left bronchus or lung (principal)
CPT/HCPCS: 71260; 82565; 84520; Q9967

== ENCOUNTER 2023-10-28 09:12 | Oncology outpatient (recurring) (ONCR) | payer MEDICARE, MEDICAID, SELFPAY ==
[2023-10-28 09:48] VITALS: BP 119/66; PULSE 80; RESP 16; TEMP 36.7; O2SAT 98
[2023-10-28 10:06] LABS: Basophils # 0.1 10^3/uL (0.0-0.1); Basophils % 0.7 %; Eosinophils # 0.2 10^3/uL (0.0-0.8); Eosinophils % 2.4 %; Hematocrit 40.5 % (36-47); Lymphocytes # 1.2 10^3/uL (0.8-4.8); Lymphocytes % 18.2 %; Mean Corpuscular HGB Conc 31.9 g/dL (30-55); Mean Corpuscular Hemoglobin 29.5 pg (27-33); Mean Corpuscular Volume 92.7 fl (85-98); Mean Platelet Volume 8.9 fL (7.4-10.4); Monocytes # 0.5 10^3/uL (0.2-0.9); Monocytes % 7.3 %; Neutrophils # 4.76 10^3/uL (1.8-7.7); Nucleated Red Blood Cells % 0 %; Platelet Count 276 10^3/cmm (157-399); Red Blood Count 4.37 10^6/uL (3.85-5.65); White Blood Count 6.71 10^3/uL (3.29-11.43)
[2023-10-28 10:22] LABS: Alanine Aminotransferase 15 U/L (0-33); Alkaline Phosphatase 90 U/L (35-105); Anion Gap 12.9 (5-19); Aspartate Amino Transferase 17 U/L (0-32); Blood Urea Nitrogen 7 mg/dL (8-23); Calcium 8.5 mg/dL (8.5-10.5); Carbon Dioxide 25 mmol/L (22-29); Chloride 102 mmol/L (98-107); Globulin 2.1 g/dL (1.3-4.6); Glucose 136 mg/dL (65-115); Osmolality Calculated 282 mOsm/kg (285-295); Potassium 3.9 mmol/L (3.5-5.1); Sodium 136 mmol/L (136-145); Total Bilirubin 0.3 mg/dL (0.15-1.2); Total Protein 6.1 g/dL (6.6-8.7)
== END 2023-11-08 23:59 | disposition home or self-care (01) ==
PROVIDERS: Internal Medicine Hematology & Oncology; PCP Family Medicine; Visit Provider Internal Medicine Medical Oncology
DX: Z45.2 Encounter for adjustment and management of vascular access device (principal); C34.92 Malignant neoplasm of unspecified part of left bronchus or lung; J44.9 Chronic obstructive pulmonary disease, unspecified; Z79.899 Other long term (current) drug therapy
CPT/HCPCS: 36591; 80053; 85025; 99214; J1642

== ENCOUNTER 2023-11-25 14:37 | Oncology outpatient (recurring) (ONCR) | payer MEDICARE, MEDICAID, SELFPAY ==
[2023-11-25 15:06] VITALS: BP 120/68; PULSE 80; RESP 16; TEMP 37; O2SAT 93
== END 2023-12-09 23:59 | disposition home or self-care (01) ==
PROVIDERS: PCP Family Medicine; Visit Provider Internal Medicine Medical Oncology
DX: Z45.2 Encounter for adjustment and management of vascular access device (principal); Z53.9 Procedure and treatment not carried out, unspecified reason
CPT/HCPCS: 96523; J1642

== ENCOUNTER 2023-12-23 14:45 | Oncology outpatient (recurring) (ONCR) | payer MEDICARE, MEDICAID, SELFPAY | END 2024-01-07 23:59 | disposition home or self-care (01) | PROVIDERS: PCP Family Medicine; Visit Provider Internal Medicine Medical Oncology | DX: Z45.2 Encounter for adjustment and management of vascular access device (principal) | CPT/HCPCS: 96523; J1642 ==

== ENCOUNTER 2024-01-27 14:49 | Oncology outpatient (recurring) (ONCR) | payer MEDICARE, MEDICAID, SELFPAY | END 2024-02-07 23:59 | disposition home or self-care (01) | PROVIDERS: PCP Family Medicine; Visit Provider Internal Medicine Medical Oncology | DX: Z45.2 Encounter for adjustment and management of vascular access device (principal); Z53.9 Procedure and treatment not carried out, unspecified reason | CPT/HCPCS: 96523; J1642 ==

== ENCOUNTER 2024-02-24 14:30 | Oncology outpatient (recurring) (ONCR) | payer MEDICARE, MEDICAID, SELFPAY | END 2024-03-08 23:59 | disposition home or self-care (01) | LOC: ONCMED 14:31 | PROVIDERS: PCP Family Medicine; Visit Provider Internal Medicine Medical Oncology | DX: Z45.2 Encounter for adjustment and management of vascular access device (principal) | CPT/HCPCS: 96523 ==

== ENCOUNTER 2024-03-23 14:42 | Oncology outpatient (recurring) (ONCR) | payer MEDICARE, MEDICAID, SELFPAY | END 2024-04-08 23:59 | disposition home or self-care (01) | LOC: ONCMED 14:42 | PROVIDERS: PCP Family Medicine; Visit Provider Internal Medicine Medical Oncology | DX: Z45.2 Encounter for adjustment and management of vascular access device (principal) ==

== ENCOUNTER 2024-05-02 12:13 | Oncology outpatient (recurring) (ONCR) | payer MEDICARE, MEDICAID, SELFPAY ==
--- NOTE | 2024-04-18 17:15 | CT_ITS ---
WS: [email or web address] CT chest w con* [id number] HISTORY: malignant neoplasm of unspecified part of the left bronchus TECHNIQUE: Axial imaging performed through the thorax. Coronal and sagittal reformats are submitted. All CT scans at [facility] use at least one of these dose optimization techniques: automated exposure control; mA and/or kV adjustment per patient size (includes targeted exams where dose is mat ched to clinical indication); or iterative reconstruction. CONTRAST: Omnipaque 350; 80 mL IV. DLP: 203.33 mGy.cm COMPARISON: 10/19/2023, 04/22/2023, 12/30/2022 and 09/24/2022 Lungs and central airway: Severe chronic centrilobular emphysema. Posttreatment residual neoplasm in the medial LEFT upper lobe is reidentified. No progression of this mass. There is continued nonenhanc ing soft tissue abutting the mediastinum with traction bronchiectasis and scarring. There are a few s cattered granulomata. No new mass or pneumonia. Pleura: Normal. No pleural effusion. Heart and pericardium: Normal size heart with no pericardial effusion. Mediastinum and lauri: No new or enlarging lymph nodes. Mild prominence of the hilar lymphoid tissue b ut similar to prior studies. Vessels: Marked atherosclerosis aorta. Pulmonary artery is slightly dilated. No filling defects in th e pulmonary arteries. Chest wall and lower neck: Right-sided Mediport. Upper abdomen: Prior cholecystectomy. Visualized liver is negative for mass. No adrenal mass. Mild di ffuse atrophy of the visualized pancreas. Increasing soft plaque and calcification within the abdomin al aorta at the level of the renal arteries. Osseous structures: Marked increase in thoracic kyphosis. No osteoblastic or osteolytic bone disease which is new or progressed. CT/CT chest w con* [id number] IMPRESSION: 1. Stable posttreatment changes medial LEFT upper lobe neoplasm. No new mass o r recurrence identified. 2. No new or increasing mediastinal or hilar lymph nodes. 3. Severe chronic emphysema. 4. Atherosclerosis aorta. 5. Prior cholecystectomy.
[2024-04-18] MEDS: iohexol 350 mg/mL 500 mL Btl (per mL) IV (17:37)
[2024-04-18 18:02] LABS: Blood Urea Nitrogen 11 mg/dL (8-23)
[2024-05-02 12:41] LABS: Basophils # 0.1 10^3/uL (0.0-0.1); Basophils % 0.7 %; Eosinophils # 0.2 10^3/uL (0.0-0.8); Eosinophils % 2.8 %; Hematocrit 38.6 % (36-47); Lymphocytes # 1.6 10^3/uL (0.8-4.8); Lymphocytes % 23.3 %; Mean Corpuscular HGB Conc 32.4 g/dL (30-55); Mean Corpuscular Hemoglobin 29.5 pg (27-33); Mean Platelet Volume 9.4 fL (7.4-10.4); Monocytes # 0.6 10^3/uL (0.2-0.9); Monocytes % 8.4 %; Neutrophils % 64.7 %; Nucleated Red Blood Cells % 0 %; Platelet Count 296 10^3/cmm (157-399); Red Blood Count 4.24 10^6/uL (3.85-5.65); Red Cell Distribution Width 12.9 % (12.1-15.1); White Blood Count 6.81 10^3/uL (3.29-11.43)
[2024-05-02 13:10] LABS: Alanine Aminotransferase 8 U/L (0-33); Albumin Level 3.9 g/dL (3.5-5.2); Alkaline Phosphatase 77 U/L (35-105); Anion Gap 11.8 (5-19); Aspartate Amino Transferase 13 U/L (0-32); Blood Urea Nitrogen 9 mg/dL (8-23); Calcium 8.5 mg/dL (8.5-10.5); Carbon Dioxide 25 mmol/L (22-29); Chloride 106 mmol/L (98-107); Globulin 2.1 g/dL (1.3-4.6); Glucose 82 mg/dL (65-115); Osmolality Calculated 286 mOsm/kg (285-295); Potassium 3.8 mmol/L (3.5-5.1); Sodium 139 mmol/L (136-145); Total Bilirubin 0.3 mg/dL (0.15-1.2)
== END 2024-05-08 23:59 | disposition home or self-care (01) ==
PROVIDERS: Nurse Practitioner Family; PCP Family Medicine; Visit Provider Internal Medicine Medical Oncology
DX: Z53.9 Procedure and treatment not carried out, unspecified reason; J43.9 Emphysema, unspecified; F17.210 Nicotine dependence, cigarettes, uncomplicated; Z92.21 Personal history of antineoplastic chemotherapy; Z92.3 Personal history of irradiation; C34.82 Malignant neoplasm of overlapping sites of left bronchus and lung; Z95.828 Presence of other vascular implants and grafts; Z79.899 Other long term (current) drug therapy
CPT/HCPCS: 36591; 71260; 80053; 82565; 84520; 85025; 99213; Q9967

== ENCOUNTER 2024-05-30 14:51 | Oncology outpatient (recurring) (ONCR) | payer MEDICARE, MEDICAID, SELFPAY | END 2024-06-08 23:59 | disposition home or self-care (01) | LOC: ONCMED 14:51 | PROVIDERS: PCP Family Medicine; Visit Provider Internal Medicine Medical Oncology | DX: Z45.2 Encounter for adjustment and management of vascular access device | CPT/HCPCS: 96523 ==

== ENCOUNTER 2024-06-27 14:10 | Oncology outpatient (recurring) (ONCR) | payer MEDICARE, MEDICAID, SELFPAY | END 2024-07-09 23:59 | disposition home or self-care (01) | LOC: ONCMED 14:10 | PROVIDERS: PCP Family Medicine; Visit Provider Internal Medicine Medical Oncology | DX: C34.92 Malignant neoplasm of unspecified part of left bronchus or lung; J43.9 Emphysema, unspecified; I70.0 Atherosclerosis of aorta; Z79.899 Other long term (current) drug therapy | CPT/HCPCS: 96523 ==

== ENCOUNTER 2024-07-25 14:20 | Oncology outpatient (recurring) (ONCR) | payer MEDICARE, MEDICAID, SELFPAY | END 2024-08-08 23:59 | disposition home or self-care (01) | LOC: ONCMED 14:21 | PROVIDERS: PCP Family Medicine; Visit Provider Internal Medicine Medical Oncology | DX: Z45.2 Encounter for adjustment and management of vascular access device | CPT/HCPCS: 96523 ==

== ENCOUNTER 2024-08-22 14:42 | Oncology outpatient (recurring) (ONCR) | payer MEDICARE, MEDICAID, SELFPAY | END 2024-09-08 23:59 | disposition home or self-care (01) | PROVIDERS: PCP Family Medicine; Visit Provider Internal Medicine Medical Oncology | DX: Z45.2 Encounter for adjustment and management of vascular access device (principal) ==

== ENCOUNTER 2024-09-19 14:19 | Oncology outpatient (recurring) (ONCR) | payer MEDICARE, MEDICAID, SELFPAY | END 2024-10-08 23:59 | disposition home or self-care (01) | PROVIDERS: PCP Family Medicine; Visit Provider Internal Medicine Medical Oncology | DX: Z45.2 Encounter for adjustment and management of vascular access device (principal) | CPT/HCPCS: 96523 ==

== ENCOUNTER 2024-10-17 13:30 | Oncology outpatient (recurring) (ONCR) | payer MEDICARE, MEDICAID, SELFPAY ==
--- NOTE | 2024-10-10 08:00 | CT_ITS ---
WS: [email or web address] CT chest w con* [id number] HISTORY: surveillance, history of lung cancer. TECHNIQUE: Axial imaging performed through the thorax. Coronal and sagittal reformats are submitted. All CT scans at [facility] use at least one of these dose optimization techniques: automated exposure control; mA and/or kV adjustment per patient size (includes targeted exams where dose is mat ched to clinical indication); or iterative reconstruction. CONTRAST: Omnipaque 350; 100 mL IV. DLP: 189.19 mGy.cm COMPARISON: 04/18/2024, 10/19/2023 Lungs and central airway: Advanced centrilobular emphysema. Reidentified is soft tissue thickening wi th traction bronchiectasis along the medial LEFT upper lobe. This is similar to the prior examination s and consistent with posttreatment changes. There is no recurrent mass or abnormal enhancement. Find ings are very similar to the study of 04/18/2024. Minimal progression since 04/22/2023. Benign granulom a LEFT lower lobe. There are a few additional very small scattered granulomata. No new mass or pulmon brian nodule. Pleura: Normal. No pleural effusion. Heart and pericardium: Normal size heart with no pericardial effusion. Mediastinum and lauri: No adenopathy. Posttreatment related fibrosis and scarring along the aorta. Mil d thickening along the central LEFT bronchovascular structures is stable. Vessels: Mild atherosclerosis aorta. No aneurysm. Normal size pulmonary artery. Chest wall and lower neck: RIGHT sided Mediport. Upper abdomen: No adrenal mass. The visualized liver is negative. Tiny cortical cysts upper poles of each kidney. No solid mass. Osseous structures: Moderate increase in thoracic kyphosis. No destructive bone lesions. CT/CT chest w con* [id number] IMPRESSION: 1. Stable posttreatment changes of fibrosis and scarring along the medial LEFT upper lobe. 2. No recurrent or new pulmonary mass or nodule. 3. No mediastinal or hilar adenopathy or interval change. 4. No adrenal mass.
[2024-10-10 08:38] LABS: Blood Urea Nitrogen 8 mg/dL (8-23)
[2024-10-10] MEDS: iohexol 350 mg/mL 500 mL Btl (per mL) IV (08:48)
[2024-10-17 13:55] LABS: Basophils % 0.3 %; Hematocrit 37.3 % (36-47); Lymphocytes # 1.2 10^3/uL (0.8-4.8); Lymphocytes % 12.1 %; Mean Corpuscular HGB Conc 31.9 g/dL (30-55); Mean Platelet Volume 9.2 fL (7.4-10.4); Monocytes # 0.1 10^3/uL (0.2-0.9); Neutrophils # 8.18 10^3/uL (1.8-7.7); Neutrophils % 83.4 %; Nucleated Red Blood Cells % 0 %; Platelet Count 499 10^3/cmm (157-399); Red Cell Distribution Width 13.1 % (12.1-15.1); White Blood Count 9.81 10^3/uL (3.29-11.43)
[2024-10-17 14:11] LABS: Alanine Aminotransferase 68 U/L (0-33); Albumin Level 3.7 g/dL (3.5-5.2); Alkaline Phosphatase 109 U/L (35-105); Anion Gap 18.1 (5-19); Aspartate Amino Transferase 27 U/L (0-32); Blood Urea Nitrogen 14 mg/dL (8-23); Calcium 9.3 mg/dL (8.5-10.5); Carbon Dioxide 22 mmol/L (22-29); Chloride 104 mmol/L (98-107); Creatinine Clr Calc Pharmacy 47.1922; Globulin 2.8 g/dL (1.3-4.6); Glucose 190 mg/dL (65-115); Osmolality Calculated 296 mOsm/kg (285-295); Potassium 4.1 mmol/L (3.5-5.1); Sodium 140 mmol/L (136-145); Total Bilirubin 0.2 mg/dL (0.15-1.2); Total Protein 6.5 g/dL (6.6-8.7)
== END 2024-11-08 23:59 | disposition home or self-care (01) ==
PROVIDERS: Nurse Practitioner Family; PCP Family Medicine; Visit Provider Internal Medicine Medical Oncology
DX: Z53.9 Procedure and treatment not carried out, unspecified reason (principal); C34.92 Malignant neoplasm of unspecified part of left bronchus or lung; J44.9 Chronic obstructive pulmonary disease, unspecified
CPT/HCPCS: 36591; 71260; 80053; 82565; 84520; 85025; 99214

== ENCOUNTER 2024-11-22 10:00 | Oncology outpatient (recurring) (ONCR) | payer MEDICARE, MEDICAID, SELFPAY ==
[2024-11-17 14:41] LABS: Blood Urea Nitrogen 16 mg/dL (8-23); Calcium 8.8 mg/dL (8.5-10.5); Carbon Dioxide 26 mmol/L (22-29); Chloride 107 mmol/L (98-107); Glucose 83 mg/dL (65-115); Osmolality Calculated 292 mOsm/kg (285-295); Sodium 141 mmol/L (136-145)
[2024-11-17 14:47] LABS: Anion Gap 12.1 (5-19); Potassium 4.1 mmol/L (3.5-5.1)
[2024-11-22 10:30] LABS: Alanine Aminotransferase 12 U/L (0-33); Aspartate Amino Transferase 15 U/L (0-32); Gamma Glutamyl Transferase 22 U/L (5-36); Lactate Dehydrogenase 180 U/L (135-214)
== END 2024-12-09 23:59 | disposition home or self-care (01) ==
PROVIDERS: Nurse Practitioner Family; PCP Family Medicine; Visit Provider Internal Medicine
DX: R74.8 Abnormal levels of other serum enzymes; Z53.9 Procedure and treatment not carried out, unspecified reason
CPT/HCPCS: 36591; 80048; 82977; 83615; 84450; 84460

== ENCOUNTER 2024-12-19 12:55 | Oncology outpatient (recurring) (ONCR) | payer MEDICARE, MEDICAID, SELFPAY | END 2025-01-06 23:59 | disposition home or self-care (01) | LOC: ONCMED 12:56 | PROVIDERS: PCP Family Medicine; Visit Provider Internal Medicine | DX: Z45.2 Encounter for adjustment and management of vascular access device (principal) | CPT/HCPCS: 96523 ==

== ENCOUNTER 2025-01-12 13:11 | Oncology outpatient (recurring) (ONCR) | payer MEDICARE, MEDICAID, SELFPAY | END 2025-02-06 23:59 | disposition home or self-care (01) | LOC: ONCMED 13:11 | PROVIDERS: PCP Family Medicine; Visit Provider Internal Medicine | DX: Z45.2 Encounter for adjustment and management of vascular access device (principal) | CPT/HCPCS: 96523 ==

== ENCOUNTER 2025-02-09 14:09 | Oncology outpatient (recurring) (ONCR) | payer MEDICARE, MEDICAID, SELFPAY ==
[2025-02-09 12:25] VITALS: BP 114/78; PULSE 74; RESP 18; TEMP 36.6; O2SAT 97
== END 2025-03-08 23:59 | disposition home or self-care (01) ==
PROVIDERS: PCP Family Medicine; Visit Provider Internal Medicine
DX: Z45.2 Encounter for adjustment and management of vascular access device (principal)
CPT/HCPCS: 96523

== ENCOUNTER 2025-03-09 14:16 | Oncology outpatient (recurring) (ONCR) | payer OTHER, MEDICAID, SELFPAY | END 2025-04-08 23:59 | disposition home or self-care (01) | PROVIDERS: PCP Family Medicine; Visit Provider Internal Medicine | DX: Z45.2 Encounter for adjustment and management of vascular access device (principal) | CPT/HCPCS: 96523 ==

== ENCOUNTER 2025-04-17 12:00 | Oncology outpatient (recurring) (ONCR) | payer OTHER, MEDICAID, SELFPAY ==
--- NOTE | 2025-04-13 12:00 | CT_ITS ---
WS: [email or web address] CT chest w con* [id number] REASON FOR EXAM: surveillance IV CONTRAST ADMINISTERED: 100 mL of Omnipaque 350. TECHNIQUE: After the intravenous administration of contrast multiple axial images were obtained with coronal and sagittal reconstructions. Moderate central lobar emphysema. Chronic atelectasis and pleural thickening along the aortic arch and left suprahilar region. TOTAL EXAM DLP: 206.[address] scans at [facility] use at least one of these dose optimization techniques: automated exposure control; mA and/or kV adjustment per patient size (includes targeted exams where dose is matched to clinical indication); or iterative reconstruction. FINDINGS: Moderate central lobar emphysema. Chronic atelectasis and pleural thickening along the aortic arch in the left suprahilar region location of previously treated carcinoma of the lung. Compared to the previous examination of 10/10/2024, no definite interval change to indicate a recurrence in this region. No adenopathy or pulmonary metastases identified. Normal adrenal glands. No other new findings compared to the previous examination. CT/CT chest w con* [id number] IMPRESSION: The current examination is unchanged compared to the previous study of 4. No evidence of recurrence or metastatic disease.
[2025-04-13 12:16] LABS: Blood Urea Nitrogen 11 mg/dL (8-23)
[2025-04-13] MEDS: iohexol 350 mg/mL 500 mL Btl (per mL) IV (12:23)
[2025-04-17 11:55] LABS: Basophils % 0.5 %; Eosinophils # 0.2 10^3/uL (0.0-0.8); Eosinophils % 3.4 %; Lymphocytes # 1.7 10^3/uL (0.8-4.8); Lymphocytes % 25.9 %; Mean Corpuscular HGB Conc 32.1 g/dL (30-55); Mean Corpuscular Hemoglobin 29.1 pg (27-33); Mean Corpuscular Volume 90.7 fl (85-98); Mean Platelet Volume 9.1 fL (7.4-10.4); Monocytes # 0.5 10^3/uL (0.2-0.9); Neutrophils # 3.96 10^3/uL (1.8-7.7); Nucleated Red Blood Cells % 0 %; Platelet Count 312 10^3/cmm (157-399); Red Cell Distribution Width 13.5 % (12.1-15.1); White Blood Count 6.38 10^3/uL (3.29-11.43)
[2025-04-17 12:15] LABS: Alanine Aminotransferase 17 U/L (0-33); Albumin Level 3.8 g/dL (3.5-5.2); Alkaline Phosphatase 101 U/L (35-105); Anion Gap 13.1 (5-19); Aspartate Amino Transferase 18 U/L (0-32); Blood Urea Nitrogen 11 mg/dL (8-23); Calcium 8.9 mg/dL (8.5-10.5); Carbon Dioxide 24 mmol/L (22-29); Chloride 104 mmol/L (98-107); Creatinine Clr Calc Pharmacy 49.3154; Globulin 2.9 g/dL (1.3-4.6); Glucose 103 mg/dL (65-115); Osmolality Calculated 284 mOsm/kg (285-295); Potassium 4.1 mmol/L (3.5-5.1); Sodium 137 mmol/L (136-145); Total Bilirubin 0.4 mg/dL (0.15-1.2); Total Protein 6.7 g/dL (6.6-8.7)
== END 2025-05-08 23:59 | disposition home or self-care (01) ==
PROVIDERS: Nurse Practitioner Family; PCP Family Medicine; Visit Provider Internal Medicine Medical Oncology
DX: Z53.9 Procedure and treatment not carried out, unspecified reason (principal); Z08 Encounter for follow-up examination after completed treatment for malignant neoplasm; Z85.118 Personal history of other malignant neoplasm of bronchus and lung; J44.9 Chronic obstructive pulmonary disease, unspecified; R03.0 Elevated blood-pressure reading, without diagnosis of hypertension; F17.210 Nicotine dependence, cigarettes, uncomplicated; Z92.21 Personal history of antineoplastic chemotherapy; Z92.3 Personal history of irradiation; Z95.828 Presence of other vascular implants and grafts
CPT/HCPCS: 36591; 71260; 80053; 82565; 84520; 85025; 99214

== ENCOUNTER 2025-05-29 12:46 | Oncology outpatient (recurring) (ONCR) | payer OTHER, MEDICAID, SELFPAY | END 2025-06-08 23:59 | disposition home or self-care (01) | LOC: ONCMED 12:46 | PROVIDERS: PCP Family Medicine; Visit Provider Internal Medicine Medical Oncology | DX: Z45.2 Encounter for adjustment and management of vascular access device (principal); Z95.828 Presence of other vascular implants and grafts | CPT/HCPCS: 96523 ==

== ENCOUNTER 2025-06-06 09:32 | Outpatient (CLI) | payer OTHER, MEDICAID, SELFPAY ==
--- NOTE | 2025-06-06 09:40 | MM_ITS ---
WS: [email or web address] BILATERAL 3D TOMOSYNTHESIS DIGITAL SCREENING MAMMOGRAM WITH CAD CLINICAL INFORMATION: SCREENING HISTORY: Screening mammogram. No current complaints. COMPARISON: 2020 TECHNIQUE: Bilateral CC and MLO. FINDINGS: RIGHT chest Port-A-Cath The breast are composed of extremely dense tissue, which can limit the detection of small underlying mass lesions. No suspicious focal mass, asymmetry, calcifications, or architectural distortion. No evidence of malignancy. Bilateral dystrophic calcifications. Vascular calcifications. MM/MM [facility] tomosynthesis [id number] IMPRESSION: DENSITY: The breasts are heterogeneously dense, which may obscure small masses. BI-RADS: 2 - Benign FOLLOW UP: 1 Year Follow-up Recommend return to annual screening mammography.
== END 2025-06-06 09:33 | disposition home or self-care (01) ==
LOC: RAD 09:33
PROVIDERS: PCP Family Medicine; Visit Provider Family Medicine
DX: Z12.31 Encounter for screening mammogram for malignant neoplasm of breast (principal); R92.333 Mammographic heterogeneous density, bilateral breasts; R92.343 Mammographic extreme density, bilateral breasts; R92.1 Mammographic calcification found on diagnostic imaging of breast
CPT/HCPCS: 77063; 77067

== ENCOUNTER 2025-06-16 12:42 | Outpatient (CLI) | payer OTHER, MEDICAID, SELFPAY ==
--- NOTE | 2025-06-16 12:51 | XR_ITS ---
WS: [email or web address] DEXA (DUAL ENERGY X-RAY ABSORPTIOMETRY) Bone mineral density was performed using a [employer] machine. HISTORY: OSTEOPOROSIS SCREENING COMPARISON: 03/13/2022 Lumbar spine BMD (L1-L4): 1.126 g/cm2 T score: -0.5 Z score: 1.6 Total hip BMD: Left: 0.693 g/cm2. T score: -2.5 Z score: -0.6 Right: 0.688 g/cm2. T score: -2.5 Z score: -0.6 10 year probability of a major osteoporotic fracture is 26.4%. Compared to the prior study from 03/13/2022. Lumbar spine bone mineral density has increased by 1.4%. Bilateral hips bone mineral density has decreased by 7.4%. XR/XR DEXA axial skeleton* [id number] IMPRESSION: OSTEOPOROSIS based upon the WHO classification for females. Significant decrease in bone mineral density within the hips since the prior . No change in the lumbar spine.
== END 2025-06-16 12:43 | disposition home or self-care (01) ==
LOC: RAD 12:44
PROVIDERS: PCP Family Medicine; Visit Provider Family Medicine
DX: Z13.820 Encounter for screening for osteoporosis (principal); M81.0 Age-related osteoporosis without current pathological fracture
CPT/HCPCS: 77080

== ENCOUNTER 2025-07-11 13:04 | Oncology outpatient (recurring) (ONCR) | payer OTHER, MEDICAID, SELFPAY | END 2025-08-08 23:59 | disposition home or self-care (01) | LOC: ONCMED 13:05 | PROVIDERS: PCP Family Medicine; Visit Provider Internal Medicine Medical Oncology | DX: Z45.2 Encounter for adjustment and management of vascular access device (principal); Z95.828 Presence of other vascular implants and grafts | CPT/HCPCS: 96523 ==

== ENCOUNTER 2025-08-21 14:01 | Oncology outpatient (recurring) (ONCR) | payer OTHER, MEDICAID, SELFPAY ==
[2025-08-21 13:40] LABS: Hematocrit 39.3 % (36-47); Hemoglobin 12.50 g/dL (11.27-16.99); Mean Corpuscular HGB Conc 31.8 g/dL (30-55); Mean Corpuscular Hemoglobin 28.5 pg (27-33); Mean Corpuscular Volume 89.5 fl (85-98); Nucleated Red Blood Cells % 0 %; Platelet Count 327 10^3/cmm (157-399); Red Blood Count 4.39 10^6/uL (3.85-5.65); White Blood Count 6.54 10^3/uL (3.29-11.43)
[2025-08-21 13:56] LABS: Alanine Aminotransferase 40 U/L (0-33); Albumin Level 4.3 g/dL (3.5-5.2); Alkaline Phosphatase 99 U/L (35-105); Anion Gap 16.9 (5-19); Aspartate Amino Transferase 27 U/L (0-32); Blood Urea Nitrogen 11 mg/dL (8-23); Calcium 8.6 mg/dL (8.5-10.5); Carbon Dioxide 22 mmol/L (22-29); Chloride 103 mmol/L (98-107); Globulin 2.3 g/dL (1.3-4.6); Glucose 94 mg/dL (65-115); Osmolality Calculated 285 mOsm/kg (285-295); Potassium 3.9 mmol/L (3.5-5.1); Sodium 138 mmol/L (136-145); Total Protein 6.6 g/dL (6.6-8.7)
== END 2025-09-08 23:59 | disposition home or self-care (01) ==
PROVIDERS: PCP Family Medicine; Visit Provider Internal Medicine Medical Oncology
DX: J44.9 Chronic obstructive pulmonary disease, unspecified (principal); C34.92 Malignant neoplasm of unspecified part of left bronchus or lung
CPT/HCPCS: 36591; 80053; 85025

== ENCOUNTER 2025-10-10 08:56 | Outpatient (CLI) | payer MEDICAID, MEDICARE, SELFPAY ==
--- NOTE | 2025-10-10 09:05 | XR_ITS ---
WS: [email or web address] Exam: XR chest 2V* [id number] Date/Time of Exam: 10/10/2025 9:07 AM Reason For Exam: CHRONIC OBSTRUCTIVE PULMONARY DISEASE WITH ACUTE EXACERBATIO Comparison 02/12/2022. The lungs are fully expanded and clear. Heart size within normal limits. Surgical clips along the mediastinum on the LEFT. RIGHT subclavian port ends in the mid SVC. Degenerative change of both shoulders. Mild spondylosis of the T- spine with increased kyphosis. XR/XR chest 2V* [id number] IMPRESSION: 1. No acute cardiopulmonary finding.
== END 2025-10-10 08:57 | disposition home or self-care (01) ==
LOC: RAD 09:00
PROVIDERS: PCP Family Medicine; Visit Provider Family Medicine
DX: J44.9 Chronic obstructive pulmonary disease, unspecified (principal); Z96.89 Presence of other specified functional implants; Z45.2 Encounter for adjustment and management of vascular access device; M19.012 Primary osteoarthritis, left shoulder; M19.011 Primary osteoarthritis, right shoulder; M47.894 Other spondylosis, thoracic region; M40.204 Unspecified kyphosis, thoracic region
CPT/HCPCS: 71046

== ENCOUNTER 2025-10-11 09:20 | Inpatient (IN) | payer MEDICARE, MEDICAID, SELFPAY ==
[2025-10-11] VITALS (11 sets, daily range): BP systolic 142–188; BP diastolic 74–84; PULSE 72–98; RESP 18–95; TEMP 36.6–36.7; O2SAT 92–97; BMI 22.6; BMI 22.5
--- NOTE | 2025-10-11 09:28 | XR_ITS ---
WS: [email or web address] Exam: XR chest 1V portable [id number] Date/Time of Exam: 10/11/2025 9:33 AM Reason For Exam: shortness of breath Comparison 10/10/2025. Lungs are fully expanded and clear. Normal cardiomediastinal silhouette. Right- sided port ends in the lower one third of the SVC in good position. Degenerative changes of the T-spine and LEFT shoulder. XR/XR chest 1V portable [id number] IMPRESSION: 1. No acute cardiopulmonary finding.
--- NOTE | 2025-10-11 09:30 | ECG_ITS ---
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 Measurements Intervals [place] Rate: 77 P: 150 TX: 154 QRS: 83 QRSD: 89 T: 146 QT: 374 QTc: 424 Interpretive Statements ECTOPIC ATRIAL RHYTHM POSSIBLE LEFT ATRIAL ENLARGEMENT [-0.1mV P-WAVE IN V1/V2] PROBABLE INFERIOR MYOCARDIAL INFARCTION , PROBABLY OLD [35 ms Q WAVE IN II/aVF] Compared to ECG 02/12/2022 11:03:25 Ectopic atrial rhythm now present Myocardial infarct finding now present Sinus rhythm no longer present Electronically Signed On 10-11-2025 23:51:12 BREAKER UP by Xuan Child M.D. [id number]
--- NOTE | 2025-10-11 09:30 | ED_ITS ---
HPI - SOB/Dyspnea 2 General: Chief Complaint: Shortness of Breath/Dyspnea Stated Complaint: trouble breathing Time Seen by Provider: 10/11/25 09:24 History of Present Illness: HPI Narrative: 75-year-old female with a history of CIGAR SORTER D, chronic hypoxemic respiratory failure on as needed oxygen, continued tobacco dependence, hyperlipidemia who presents to the emergency room with worsening shortness of breath. She has had cough and wheeze. She saw her PCP and has had 2 rounds of steroids. She also says she feels like her abdomen is distended. No nausea or vomiting. No fevers. No chest pain. Related Data Home Medications ?Medication ?Instructions ?Recorded ?Confirmed lovastatin 20 mg tablet 20 mg PO DAILY 07/09/2101/31 omeprazole 40 mg capsule,delayed 40 mg PO DAILY 10/11/25 release tiotropium bromide 18 mcg capsule 1 cap inhalation WILLY LY 07/09/21 10/11/25 with inhalation device (Spiriva with HandiHaler) dorzolamide 2 % eye drops 1 drp ophthalmic (eye) BID 0 04/17/25 10/11/25 albuterol sulfate 2.5 mg/3 mL 2.5 mg continuous nebuli zation QID 10/11/25 10/11/25 (0.083 %) solution for nebulization albuterol sulfate 90 mcg/actuation 1 - 2 puff inhalati on .Q4-6H PRN 10/11/25 10/11/25 aerosol inhaler Shortness Of Breath alendronate 70 mg tablet 70 mg PO Q7D 10/11/25 cholecalciferol (vitamin D3) 25 25 mcg PO DAILY 10/11/25 mcg (1,000 unit) tablet (Vitamin D3) fluticasone furoate 100 1 inh inhalation DAILY 10/1110/11/25 mcg-vilanterol 25 mcg/dose inhalation powder (Breo Ellipta) ketorolac 0.5 % eye drops See Rx Instructions .Route . COMPLEX 10/11/25 10/11/25 Allergies Allergy/AdvReac Type Severity Reaction Status Date / Time No Known Allergies Allergy Verified 10/11/25 09:36 Review of Systems 2 Narrative: Constitutional symptoms: Negative except as documented in HPI. Skin symptoms: Negative except as documented in HPI. Eye symptoms: Negative except as documented in HPI. ENMT symptoms: Negative except as documented in HPI. Respiratory symptoms: Negative except as documented in HPI. Cardiovascular symptoms: Negative except as documented in HPI. Gastrointestinal symptoms: Negative except as documented in HPI. Genitourinary symptoms: Negative except as documented in HPI. Musculoskeletal symptoms: Negative except as documented in HPI. Neurologic symptoms: Negative except as documented in HPI. Psychiatric symptoms: Negative except as documented in HPI. Endocrine symptoms: Negative except as documented in HPI. PFSH ED 2 PFSH: Medical History (Updated 10/11/25 @ 11:32 by Brenna Oneill MD) COPD (chronic obstructive pulmonary disease) Hypercholesteremia Fibromyalgia GERD (gastroesophageal reflux disease) Nicotine dependence, cigarettes, uncomplicated Overactive bladder Lung mass Surgical History Hx of tonsillectomy History of cholecystectomy History of hysterectomy H/O lumpectomy Family History Brother Cancer Lung Mother Hypertension Father Heart disease Social History Smoking and tobacco/nicotine status: current every day tobacco/nicotine user cigarettes Packs smoked per day: 1 Years cigarettes smoked: 50 Second hand smoke exposure: Yes Alcohol intake: current Alcohol intake frequency: holidays/special occasions only Substance/Drug Use: never Lives independently: Yes Household members: none Marital status: Current occupational status: retired Do you think of yourself as: Straight/Heterosexual Current gender identity: Female Physical Exam 2 Narrative: EXAM NARRATIVE: General: Alert, no acute distress. Skin: Warm, dry. Head: Normocephalic, atraumatic. Neck: Supple, trachea midline. Eye: Extraocular movements are intact. Ears, nose, mouth and throat: Oral mucosa moist. Cardiovascular: Regular rate and rhythm, Normal peripheral perfusion. Respiratory: coarse, scattered wheeze, mild increased wob. tachypnea, breath sounds are equal, Symmetrical chest wall expansion. Gastrointestinal: Soft, Nontender, Non distended Musculoskeletal: Normal ROM, no deformity. Neurological: Alert and oriented, No focal neurological deficit observed. Psychiatric: Cooperative, appropriate mood & affect. Course 2 Vital Signs: Vital signs: Vital Signs Temperature 97.8 F 10/11/25 09:23 Pulse Rate 72 10/11/25 11:27 Respiratory Rate 18 10/11/25 09:41 Blood Pressure 142/80 10/11/25 11:27 Pulse Oximetry 96 10/11/25 11:27 Oxygen Delivery Me thod Room Air 10/11/25 11:27 Fraction of Inspir ed Oxygen 21 10/11/25 09:41 MDM - SOB/Dyspnea Medical Decision Making Medical decision making Patient's reason for coming to the emergency room: Shortness of breath Social determinants: Patient is retired. She is accompanied by a friend from her living complex I reviewed the patient's medical record. 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 Alternate historians: None Differential diagnosis for patient with shortness of breath includes but is not limited to and based on the above HPI, review of systems and physical exam: Pneumonia. Bronchitis. Asthma or COPD with acute exacerbation. Acute coronary syndrome / [place]. Pulmonary embolism. Anxiety. Congestive heart failure. Viral infections including influenza and Covid-19. Atrial fibrillation. Anxiety. Pleural effusion. Pneumothorax. Orders placed to evaluate differential diagnosis based on the above differential, HPI and physical exam EKG: Time 9:30 AM. Rate 77. Normal sinus rhythm, No ST-T changes, no ectopy, normal WI & QRS intervals, This was reviewed and interpreted by myself the ER physician at 9:35 AM Chest x-ray: Right-sided Port-A-Cath. No acute process. No infiltrate. No pneumothorax. This was reviewed and interpreted by myself the emergency room physician. I also reviewed the radiology report. Lab Review: Laboratory results were reviewed and interpreted by myself the emergency room physician. No leukocytosis. No anemia. No renal failure. Flu COVID RSV are negative. Assessment of risk: Level of risk: High risk patient. Elderly with multiple comorbidities. Hospitalization considerations: Patient is being admitted for COPD exacerbation, increased work of breathing and failed outpatient therapy Reexamination: Patient still quite a bit of wheeze. Some mild tracheal tugging and accessory muscle use. No altered mental status. Mild improvement with multiple updrafts and Solu-Medrol Consultation: I spoke with Dr. Calderon who is on-call for the hospital service who agrees to admission Assessment and plan: COPD with acute exacerbation Increased work of breathing Failed outpatient therapy ?IV Christineu-Medrol and 2 updrafts in the emergency room -I discussed the patient with the hospitalist on-call who is admitting the patient. - Discussed findings and plan with patient. Answered any questions. - All laboratory values were reviewed and interpreted personally by myself, the ER physician - All imaging was reviewed and interpreted personally by myself, the ER physician. - Evaluation and treatment of this problem were appropriate in the emergency setting Lab Data 10/11/25 09:40 10/11/25 09:40 Labs/Radiology: Radiology Impressions Chest X-Ray 10/11/25 09:28 IMPRESSION: 1. No acute cardiopulmonary finding. Laboratory Results WBC 9.96 10^3/uL (3.29-11.43) 10/11/25 09:40 RBC 4.92 10^6/uL (3.85-5.65) 10/11/25 09:40 Hgb 14.10 g/dL (11.27-16.99) 10/11/25 09:40 Hct 44.0 % (36-47) 10/11/25 09:40 MCV 89.4 fl (85-98) 10/11/25 09:40 MCH 28.7 pg (27-33) 10/11/25 09:40 MCHC 32.0 g/dL (30-55) 10/11/25 09:40 RDW 13.5 % (12.1-15.1) 10/11/25 09:40 Plt Count 391 10^3/cmm (157-399) 10/11/25 09:40 MPV 9.3 fL (7.4-10.4) 10/11/25 09:40 Neut % (Auto) 61.5 % 10/11/25 09:40 Lymph % (Auto) 31.0 % 10/11/25 09:40 Deuel % (Auto) 5.9 % 10/11/25 09:40 Eos % (Auto) 0.8 % 10/11/25 09:40 Baso % (Auto) 0.2 % 10/11/25 09:40 Neut # (Auto) 6.12 10^3/uL (1.8-7.7) 10/11/25 09:40 Lymph # (Auto) 3.1 10^3/uL (0.8-4.8) 10/11/25 09:40 Deuel # (Auto) 0.6 10^3/uL (0.2-0.9) 10/11/25 09:40 Eos # (Auto) 0.1 10^3/uL (0.0-0.8) 10/11/25 09:40 Baso # (Auto) 0.0 10^3/uL (0.0-0.1) 10/11/25 09:40 Nucleated RBC % (auto) 0 % 10/11/25 09:40 Nucleated RBCs # 0.0 /100WBC 10/11/25 09:40 D-Dimer 0.68 ug/mLFEU (0-0.59) H 10/11/25 09:40 Specimen Type Arterial 10/11/25 09:36 Sample Site Radial, right 10/11/25 09:36 ABG pH 7.48 (7.35-7.45) H 10/11/25 09:36 ABG pCO2 34.4 mmHg (35-45) L 10/11/25 09:36 ABG pO2 63.8 mmHg (80.0-100.0) L 10/11/25 09:36 ABG PO2/FiO2 Ratio 303 10/11/25 09:36 ABG HCO3 25.8 mmol/L (22-26) 10/11/25 09:36 ABG O2 Saturation 95.0 10/11/25 09:36 ABG Base Excess 2.7 mmol/L (-2.0-2.0) H 10/11/25 09:36 Sean Test Pos 10/11/25 09:36 A-a O2 Gradient 5.6 mmHg (5-10) 10/11/25 09:36 Hematocrit 43.4 % (37-47) 10/11/25 09:36 Hgb O2 Saturation 93.4 % (95-100) L 10/11/25 09:36 Carboxyhemoglobin 1.1 %THgb (0.4-20.1) 10/11/25 09:36 Methemoglobin 0.6 % (0.4-1.5) 10/11/25 09:36 Total Hemoglobin 14.2 g/dL (12-16) 10/11/25 09:36 Sodium 144.0 mmol/L (131-143) H 10/11/25 09:36 Potassium 3.2 mmol/L (3.5-5.0) L 10/11/25 09:36 Glucose 95.0 mg/dL (70-115) 10/11/25 09:36 Ionized Calcium 1.2 mmol/L (1.1-1.4) 10/11/25 09:36 O2 Delivery Device Room air 10/11/25 09:36 FiO2 21.0 % 10/11/25 09:36 Mine Wirer ID Walc 10/11/25 09:36 Sodium 143 mmol/L (136-145) 10/11/25 09:40 Potassium 3.4 mmol/L (3.5-5.1) L 10/11/25 09:40 Chloride 105 mmol/L (98-107) 10/11/25 09:40 Carbon Dioxide 27 mmol/L (22-29) 10/11/25 09:40 Anion Gap 14.4 (5-19) 10/11/25 09:40 BUN 16 mg/dL (8-23) 10/11/25 09:40 Creatinine 0.8 mg/dL (0.5-0.9) 10/11/25 09:40 GFR Calculation Not Reportable 10/11/25 09:40 Glucose 90 mg/dL (65-115) 10/11/25 09:40 Calculated Osmolality 297 mOsm/kg (285-295) H 10/11/25 09:40 Lactic Acid 1.5 mmol/L (0.5-2.2) 10/11/25 09:40 Calcium 9.1 mg/dL (8.5-10.5) 10/11/25 09:40 Total Bilirubin 0.4 mg/dL (0.15-1.2) 10/11/25 09:40 AST 17 U/L (0-32) 10/11/25 09:40 ALT 21 U/L (0-33) 10/11/25 09:40 Alkaline Phosphatase 71 U/L (35-105) 10/11/25 09:40 NT-Pro-B Natriuret Pep 543 pg/mL (0-125) H 10/11/25 09:40 Total Protein 6.9 g/dL (6.6-8.7) 10/11/25 09:40 Albumin 4.4 g/dL (3.5-5.2) 10/11/25 09:40 Globulin 2.5 g/dL (1.3-4.6) 10/11/25 09:40 Influenza A (PCR) Negative (Negative) 10/11/25 09:55 Influenza Type B (PCR) Negative (Negative) 10/11/25 09:55 RSV (PCR) Negative (Negative) 10/11/25 09:55 SARS-CoV-2 (PCR) Negative (Negative) 10/11/25 09:55 All radiology interpretation(s) finalized by discharge Discharge Plan Discharge Patient Disposition: Admitted As Inpatient Clinical Impression: Acute exacerbation of chronic obstructive airways disease, Dyspnea Condition: Stable Coding Level of Care Code ED Customs Opener Verifier Packer for Summer Giles
[2025-10-11 09:48] LABS: ABG PCO2 34.4 mmHg (35-45); ABG PH Result 7.48 (7.35-7.45); Alveolar-Arterial Oxygen Gradi 5.6 mmHg (5-10); Arterial Blood Gas Hematocrit 43.4 % (37-47); Blood Gas Allen Test Pos; Blood Gas Operator Identificat WALC; Blood Gas Sample Site Radial, right; Blood Gas Sample Type Arterial; Carboxyhemoglobin 1.1 %THgb (0.4-20.1); Glucose Level-ABG 95.0 mg/dL (70-115); HCO3 ABG 25.8 mmol/L (22-26); Ionized Calcium Level - ABG 1.2 mmol/L (1.1-1.4); Methemoglobin 0.6 % (0.4-1.5); Oxygen Saturation ABG 95.0; PO2 ABG 63.8 mmHg (80.0-100.0); PO2 FiO2 Ratio Arterial Blood 303; Potassium Level - ABG 3.2 mmol/L (3.5-5.0); Sodium Level - ABG 144.0 mmol/L (131-143)
--- OUTSIDE RECORDS SUMMARY | 2025-10-11 09:48 | XMS_ITS | Encounter Summary ---
Author Organization [facility] Address [address] [place] [address] Care Team Providers Care Informatics Developer Name Role Phone Luis Fernando Jara MD Primary Care Provider Unavaila ble Encounter Details Date Type Department Care Team (Late st Contact Info) Description 02/22/2007 Outpatient Historical [facility] Imaging Services-[place] [address] [place] [id number] Thom Coffman MD [address] [facility] [address] [place] [address] Other Dyspnea and Respiratory Abnormality (Primary Dx); Nausea Alone; Tobacco Use Disorder Social History Tobacco Use Types Packs/Day Years Used Date Smoking Tobacco: Never Assessed Comments Unknown Sex and Gender Information Value Date Recorded Sex Assigned at Not on file Legal Sex Female 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
--- OUTSIDE RECORDS SUMMARY | 2025-10-11 09:48 | XMS_ITS | Encounter Summary ---
Author Organization [facility] Address [address] [place] [address] Care Team Providers Care Weapons Officer Naval Activity Name Role Phone Luis Fernando Jara MD Primary Care Provider Unavaila ble Encounter Details Date Type Department Care Team (Late st Contact Info) Description 02/01/2010 Outpatient Historical [facility] [address] [place] [address] Bay Stanford, DO [address] [place] [address] [place] [address] Elev Transaminase/LDH (Primary Dx) Social History Tobacco Use Types Packs/Day Years Used Date Smoking Tobacco: Every Day Cigarettes 1 44 Comments:since 15 y/o. 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
--- OUTSIDE RECORDS SUMMARY | 2025-10-11 09:48 | XMS_ITS | Encounter Summary ---
Author Organization [facility] Address [address] [place] [address] Care Team Providers Care Azure Principal Solution Specialist Name Role Phone Luis Fernando Jara MD Primary Care Provider Unavaila ble Encounter Details Date Type Department Care Team (Latest Contact Info) Description 03/05/2007 Outpatient Historical [facility] Cardiology Ancillary Services-[place] [employer] [address] [place] [address] Jamar Peralta MD NO ADDRESS ON FILE Other Pulmonary Insufficiency, not Elsewhere Classified (Primary Dx); Nausea Alone; Tobacco Use Disorder Social History Tobacco Use Types Packs/Day Years Used Date Smoking Tobacco: Never Assessed Comments Unknown Sex and Gender Information Value Date Recorded Sex Assigned at Not on file Legal 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
--- OUTSIDE RECORDS SUMMARY | 2025-10-11 09:48 | XMS_ITS | Encounter Summary ---
Author Organization [facility] Address [address] [place] [address] Care Team Providers Care Art Educator Name Role Phone Luis Fernando Jara MD Primary Care Provider Ashlya ble Encounter Details Date Type Department Care Team (Late st Contact Info) Description 01/21/2010 Outpatient Historical [facility] [address] [place] [address] Bay Stanford, DO [address] [place] [address] [place] [address] Abdominal Pain, Epigastric (Primary Dx); Acute Bronchitis Social History Tobacco Use Types Packs/Day Years Used Date Smoking Tobacco: Every Day Cigarettes 1 44 Comments:since 15 y/o. 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
--- OUTSIDE RECORDS SUMMARY | 2025-10-11 09:48 | XMS_ITS | Encounter Summary ---
Author Organization [facility] Address [address] [place] [address] Care Team Providers Care Graphic Production Artist Name Role Phone Luis Fernando Jara MD Primary Care Provider Unavaila ble Encounter Details Date Type Department Care Team (Late st Contact Info) Description 03/05/2007 Outpatient Historical [facility] [address] [place] [address] Thom Coffman MD [address] [facility] [address] [place] [address] Other Diseases of Lung, not Elsewhere Classified (Primary Dx) Social History Tobacco Use Types Packs/Day Years Used Date Smoking Tobacco: Never Assessed Comments Unknown Sex and Gender Information Value Date Recorded Sex Assigned at Not on file 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
--- OUTSIDE RECORDS SUMMARY | 2025-10-11 09:49 | XMS_ITS | Encounter Summary ---
Author Organization [facility] Address [address] [place] [address] Care Team Providers Care Ordnance Truck Installation Mechanic Name Role Phone Luis Fernando Jara MD Primary Care Provider Unavaila ble Encounter Details Date Type Department Care Team (Latest Contact Info) Description 01/01/2007 Outpatient Historical [facility] Optometry-[address] [place] [address] Johnathon Lynch, OD [address] [place] [address] Unspecified Tear Film Insufficiency (Primary Dx); Nuclear Sclerosis Social History Tobacco Use Types Packs/Day Years Used Date Smoking Tobacco: Never Assessed Comments Unknown Sex and Gender Information Value Date Recorded Sex Assigned at Not on file Legal Sex Female 4:40 AM EXTRUDER OPERATOR HORIZONTAL Gender Identity Not on file Sexual Orientation Not on file documented as of this encounter Plan of Treatment Not on file documented as of this encounter Visit Diagnoses Diagnosis Tear film insufficiency, unspecified- Primary Nuclear sclerosis Senile nuclear sclerosis documented in this encounter Care Teams Ordnance Truck Installation Mechanic Relationship Specialty Start Date End Date Luis Fernando Jara MD PCP - General Family Practice 11/28/11 03/31/18 documented as of this encounter
--- OUTSIDE RECORDS SUMMARY | 2025-10-11 09:49 | XMS_ITS | Encounter Summary ---
Author Organization [facility] Address [address] [place] [address] Care Team Providers Care Assessment Rn Name Role Phone Luis Fernando Jara MD Primary Care Provider Unavaila ble Encounter Details Date Type Department Care Team (Late st Contact Info) Description 10/08/2007 Outpatient Historical [facility] Family Medicine [address] [place] [address] [place] [address] Bay Stanford DO [address] [place] [address] Social History Tobacco Use Types Packs/Day Years Used Date Smoking Tobacco: Never Assessed Comments Unknown Sex and Gender Information Value Date Recorded Sex Assigned at Not on file Legal Sex Female 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
--- OUTSIDE RECORDS SUMMARY | 2025-10-11 09:49 | XMS_ITS | Encounter Summary ---
Author Organization [facility] Address [address] [place] [address] Care Team Providers Care Director Of Capital Giving Name Role Phone Luis Fernando Jara MD Primary Care Provider Ashlya ble Encounter Details Date Type Department Care Team (Latest Contact Info) Description 06/05/2006 Outpatient Historical [facility] Family Medicine [address] [place] [address] [place] [address] Bay Stanford, [address] [place] [address] Routine Gynecological Examination (Primary Dx); Screening for Malignant Neoplasm of the Rectum Social History Tobacco Use Types Packs/Day Years Used Date Smoking Tobacco: Never Assessed Comments Unknown Sex and Gender Information Value Date Recorded Sex Assigned at Not on file Legal Sex Female 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
--- OUTSIDE RECORDS SUMMARY | 2025-10-11 09:49 | XMS_ITS | Encounter Summary ---
Author Organization [facility] Address [address] [place] [address] Care Team Providers Care Integrated Logistics Support Manager Name Role Phone Luis Fernando Jara MD Primary Care Provider Unavaila ble Encounter Details Date Type Department Care Team (Latest Contact Info) Description 01/18/2006 Outpatient Historical 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
--- OUTSIDE RECORDS SUMMARY | 2025-10-11 09:49 | XMS_ITS | Encounter Summary ---
Author Organization [facility] Address [address] [place] [address] Care Team Providers Care Maintenance Electrician Name Role Phone Luis Fernando Jara MD Primary Care Provider Unavaila ble Encounter Details Date Type Department Care Team (Late st Contact Info) Description 03/12/2007 Outpatient Historical [facility] Pulmonology-[facility] Analia [address] [place] [phone] Thom Coffman MD [address] [facility] [address] [place] [address] Other Dyspnea and Respiratory Abnormality (Primary Dx); Chronic Airway Obstruction, not Elsewhere Classified (CMS/HCC); Congestive Heart Failure, Unspecified (CMS/HCC) Social History Tobacco Use Types Packs/Day Years Used Date Smoking Tobacco: Never Assessed Comments Unknown Sex and Gender Information Value Date Recorded Sex Assigned at Not on file Legal Sex Female 4:40 AM PERSONNEL MANAGER Gender Identity Not on file Sexual Orientation Not on file documented as of this encounter Plan of Treatment Not on file documented as of this encounter Visit Diagnoses Diagnosis Other dyspnea and respiratory abnormality- Primary Chronic airway obstruction, not elsewhere classified (CMS/HCC) Chronic airway obstruction, not elsewhere classified Congestive heart failure, unspecified documented in this encounter Care Teams Maintenance Electrician Relationship Specialty Start Date End Date Luis Fernando Jara MD PCP - General Family Practice 11/28/11 03/31/18 documented as of this encounter
--- OUTSIDE RECORDS SUMMARY | 2025-10-11 09:49 | XMS_ITS | Encounter Summary ---
Author Organization [facility] Address [address] [place] [address] Care Team Providers Care Terrazzo Tile Maker Name Role Phone Luis Fernando Jara MD Primary Care Provider Unavaila ble Reason for Referral * Outpatient Services (Routine) - Closed Specialty Diagnoses / Procedures Referred By Sohan pacheco Referred To Contact Diagnoses Other screening mammogram Procedures MAMMO DIGITIZED STUDY Luis Fernando Jara MD NO ADDRESS ON FILE Referral ID Status Reason Start Date Expiration Date Visits Re quested Visits Authorized [id number] Closed 12/27/2012 01/27/2014 1 1 E MILL HAND Encounter Details Date Type Department Care Team (Late st Contact Info) Description 12/27/2012 Ancillary Orders [address] [address] Luis Fernando Jara MD NO ADDRESS ON FILE Other screening mammogram Social History Tobacco Use Types Packs/Day Years Used Date Smoking Tobacco: Every Day Cigarettes 1 44 Smokeless Tobacco: Never Comments:since 15 y/o. advis ed to stop Alcohol Use Standard Drinks/Week Comments Yes 0 (1 standard drink = 0.6 oz pur e alcohol) caffeine 3/day Comments No Sex and Gender Information Value Date Recorded Sex Assigned at Not on file Legal Sex Female 4:40 AM STAVE MILL HAND Gender Identity Not on file Sexual Orientation Not on file documented as of this encounter Plan of Treatment Not on file documented as of this encounter Results * MAMMO DIGITIZED STUDY (01/26/2009 11:14 AM CDT) Narrative Irina Velazquez RT - 12/27/2012 11:14 AM STAVE MILL HAND Order information only. Exam was auto-finalized. Procedure Note Caroline Irina L, RT - 12/27/2012 Order information only. Exam was auto-finalized. us Luis Fernando Jara MD DIAGNOSTIC IMAGING ORDERABLES F inal Result documented in this encounter Visit Diagnoses Diagnosis Other screening mammogram Other screening mammogram documented in this encounter Care Teams Terrazzo Tile Maker Relationship Specialty Start Date End Date Luis Fernando Jara MD PCP - General Family Practice 11/28/11 03/31/18 documented as of this encounter
--- OUTSIDE RECORDS SUMMARY | 2025-10-11 09:49 | XMS_ITS | Encounter Summary ---
Author Organization [facility] Address [address] [place] [address] Care Team Providers Care Farm Equipment Technician Name Role Phone Luis Fernando Jara MD Primary Care Provider Unavaila ble Reason for Referral * Outpatient Services (Routine) - Closed Specialty Diagnoses / Procedures Referred By Sohan t Referred To Contact Diagnoses Other screening mammogram Procedures MAMMO DIGITIZED STUDY Luis Fernando Jara MD NO ADDRESS ON FILE Referral ID Status Reason Start Date Expiration Date Visits Re quested Visits Authorized [id number] Closed 12/27/2012 01/27/2014 1 1 T CONTROLS SPECIALIST Encounter Details Date Type Department Care Team (Late st Contact Info) Description 12/27/2012 Ancillary Orders [address] [address] Luis Fernando Jara MD NO [...] on file Legal Sex Female 4:40 AM PLANT CONTROLS SPECIALIST Gender Identity Not on file Sexual Orientation Not on file documented as of this encounter Plan of Treatment Not on file documented as of this encounter Results * MAMMO DIGITIZED STUDY (01/14/2011 11:12 AM PLANT CONTROLS SPECIALIST) Narrative Irina Velazquez RT - 12/27/2012 11:12 AM PLANT CONTROLS SPECIALIST Order information only. Exam was auto-finalized. Procedure Note Caroline Irina L, RT - 12/27/2012 Order information only. Exam was auto-finalized. us Luis Fernando Jara MD DIAGNOSTIC IMAGING ORDERABLES F inal Result documented in this encounter Visit Diagnoses Diagnosis Other screening mammogram Other screening mammogram documented in this encounter Care Teams Farm Equipment Technician Relationship Specialty Start Date End Date Luis Fernando Jara MD PCP - General Family Practice 11/28/11 03/31/18 documented as of this encounter
--- OUTSIDE RECORDS SUMMARY | 2025-10-11 09:49 | XMS_ITS | Encounter Summary ---
Author Organization [facility] Address [address] [place] [address] Care Team Providers Care Ld Teacher Name Role Phone Luis Fernando Jara MD Primary Care Provider Unavaila ble Encounter Details Date Type Department Care Team (Latest Contact Info) Description 12/26/2005 Outpatient Historical [facility] Optometry-[address] [place] [address] Johnathon Lynch, OD [address] [place] [address] Nuclear sclerosis (Primary Dx) Social History Tobacco Use Types Packs/Day Years Used Date Smoking Tobacco: Never Assessed Comments Unknown Sex and Gender Information Value Date Recorded Sex Assigned at Not on file Legal Sex Female 4:40 AM QUALITY CONTROL DIRECTOR Gender Identity Not on file Sexual Orientation Not on file documented as of this encounter Plan of Treatment Not on file documented as of this encounter Visit Diagnoses Diagnosis Nuclear sclerosis- Primary Senile nuclear sclerosis documented in this encounter Care Teams Ld Teacher Relationship Specialty Start Date End Date Luis Fernando Jara MD PCP - General Family Practice 11/28/11 03/31/18 documented as of this encounter
--- OUTSIDE RECORDS SUMMARY | 2025-10-11 09:49 | XMS_ITS | Encounter Summary ---
Author Organization [facility] Address [address] [place] [address] Care Team Providers Care Otr Flatbed Driver Name Role Phone Luis Fernando Jara MD Primary Care Provider Unavaila ble Encounter Details Date Type Department Care Team (Late st Contact Info) Description 06/05/2006 Outpatient Historical [facility] [address] [place] [address] [place] [address] Bay Stanford DO [address] [place] [address] Social History Tobacco Use Types Packs/Day Years Used Date Smoking Tobacco: Never Assessed Comments Unknown Sex and Gender Information Value Date Recorded Sex Assigned at Not on file Legal Sex Female 4:40 AM GAS COMPRESSOR TURBINE OPERATOR Gender Identity Not on file Sexual Orientation Not on file documented as of this encounter Plan of Treatment Not on file documented as of this encounter Visit Diagnoses Not on filedocumented in this encounter Care Teams Otr Flatbed Driver Relationship Specialty Start Date End Date Luis Fernando Jara MD PCP - General Family Practice 11/28/11 03/31/18 documented as of this encounter
--- OUTSIDE RECORDS SUMMARY | 2025-10-11 09:49 | XMS_ITS | Encounter Summary ---
Author Organization [facility] Address [address] [place] [address] Care Team Providers Care Crane Follower Name Role Phone Luis Fernando Jara MD Primary Care Provider Unavaila ble Encounter Details Date Type Department Care Team (Late st Contact Info) Description 05/07/2007 Outpatient Historical [facility] Pulmonology-[facility] Analia [address] [place] [address] Thom Coffman MD [address] [facility] [address] [place] [address] Other Dyspnea and Respiratory Abnormality (Primary Dx); Cough; Chronic Airway Obstruction, not Elsewhere Classified (CMS/HCC) Social History Tobacco Use Types Packs/Day Years Used Date Smoking Tobacco: Never Assessed Comments Unknown Sex and Gender Information Value Date Recorded Sex Assigned at Not on file Legal Sex Female 4:40 AM TAILING MACHINE OPERATOR Gender Identity Not on file Sexual Orientation Not on file documented as of this encounter Plan of Treatment Not on file documented as of this encounter Visit Diagnoses Diagnosis Other dyspnea and respiratory abnormality- Primary Cough Chronic airway obstruction, not elsewhere classified (CMS/HCC) Chronic airway obstruction, not elsewhere classified documented in this encounter Care Teams Crane Follower Relationship Specialty Start Date End Date Luis Fernando Jara MD PCP - General Family Practice 11/28/11 03/31/18 documented as of this encounter
--- OUTSIDE RECORDS SUMMARY | 2025-10-11 09:49 | XMS_ITS | Encounter Summary ---
Author Organization [facility] Address [address] [place] [address] Care Team Providers Care Cash Accounting Clerk Name Role Phone Luis Fernando Jara MD Primary Care Provider Ashlya ble Encounter Details Date Type Department Care Team (Late st Contact Info) Description 08/03/2006 Outpatient Historical [facility] Family Medicine [address] [place] [address] [place] [address] Bay Stanford, [address] [place] [address] Unspecified Myalgia and Myositis (Primary Dx); Generalized Osteoarthrosis, Unspecified Site Social History Tobacco Use Types Packs/Day Years Used Date Smoking Tobacco: Never Assessed Comments Unknown Sex and Gender Information Value Date Recorded Sex Assigned at Not on file Legal Sex Female 4:40 AM SEWING TEACHER Gender Identity Not on file Sexual Orientation Not on file documented as of this encounter Plan of Treatment Not on file documented as of this encounter Visit Diagnoses Diagnosis Myalgia and myositis, unspecified- Primary Mylagia and myositis, unspecified Generalized osteoarthrosis, unspecified site documented in this encounter Care Teams Cash Accounting Clerk Relationship Specialty Start Date End Date Luis Fernando Jara MD PCP - General Family Practice 11/28/11 03/31/18 documented as of this encounter
--- OUTSIDE RECORDS SUMMARY | 2025-10-11 09:49 | XMS_ITS | Encounter Summary ---
Author Organization [facility] Address [address] [place] [address] Care Team Providers Care Manager Legal Name Role Phone Luis Fernando Jara MD Primary Care Provider Unavaila ble Encounter Details Date Type Department Care Team (Late st Contact Info) Description 12/11/2006 Outpatient Historical [facility] Family Medicine [address] [place] [address] [place] [address] Bay Stanford, [address] [place] [address] Acute Bronchitis (Primary Dx); Acute Upper Respiratory Infections of Unspecified Site Social History Tobacco Use Types Packs/Day Years Used Date Smoking Tobacco: Never Assessed Comments Unknown Sex and Gender Information Value Date Recorded Sex Assigned at Not on file Legal Sex Female 4:40 AM IMPROVEMENT RN Gender Identity Not on file Sexual Orientation Not on file documented as of this encounter Plan of Treatment Not on file documented as of this encounter Visit Diagnoses Diagnosis Acute bronchitis- Primary Acute upper respiratory infections of unspecified site documented in this encounter Care Teams Manager Legal Relationship Specialty Start Date End Date Luis Fernando Jara MD PCP - General Family Practice 11/28/11 03/31/18 documented as of this encounter
--- OUTSIDE RECORDS SUMMARY | 2025-10-11 09:49 | XMS_ITS | Encounter Summary ---
Author Organization [facility] Address [address] [place] [address] Care Team Providers Care Sports Manager Name Role Phone Luis Fernando Jara MD Primary Care Provider Ashlya ble Encounter Details Date Type Department Care Team (Latest Contact Info) Description 02/10/2007 Outpatient Historical [facility] [address] [place] [address] Bay Stanford, DO [address] [place] [address] [place] [address] Other Specified Disorder of the Esophagus (Primary Dx) Social History Tobacco Use Types Packs/Day Years Used Date Smoking Tobacco: Never Assessed Comments Unknown Sex and Gender Information Value Date Recorded Sex Assigned at Not on file Legal Sex Female 4:40 AM RAG WILLOW OPERATOR Gender Identity Not on file Sexual Orientation Not on file documented as of this encounter Plan of Treatment Not on file documented as of this encounter Procedures Procedure Name Priority Date/Time Associated Diagnosis Comments XR UPR GI AIR CONTRAST Routine 02/10/2007 7:00 AM CDT documented in this encounter Results * XR UPR GI AIR CONTRAST (02/10/2007 7:00 AM CDT) Anatomical Region Laterality Modality Abdomen Other 02/10/2007 7:00 AM CDT Narrative 02/10/2007 7:00 AM CDT UPPER GI WITH AIR-CONTRAST: HISTORY: Nausea and abdominal pain. FINDINGS: Mild tertiary esophageal contractions. Small hiatal hernia. No esophageal, gastric orduodenal mass, stricture or ulceration. IMPRESSION: Mild tertiary esophageal contractions and a small hiatal hernia. - Dictated By: K Hernandez Calderón, M.D. Electronically Signed By: Reina Calderón M.D. Date Signed: 02/14/07 Procedure Note 09/29/2009 UPPER GI WITH AIR-CONTRAST: HISTORY: Nausea and abdominal pain. FINDINGS: Mild tertiary esophageal contractions. Small hiatal hernia. No esophageal,gastric orduodenal mass, stricture or ulceration. IMPRESSION: Mild tertiary esophageal contractions and a small hiatal hernia. - Dictated By: Reina Calderón M.D. Electronically Signed By: Reina Calderón M.D. Date Signed: 02/14/07 Bay Stevens Hien DO DIAGNOSTIC IMAGING ORDERABLES Fi nal Result documented in this encounter Visit Diagnoses Diagnosis Other specified disorder of the esophagus- Primary documented in this encounter Care Teams Sports Manager Relationship Specialty Start Date End Date Luis Fernando Jara MD PCP - General Family Practice 11/28/11 03/31/18 documented as of this encounter
--- OUTSIDE RECORDS SUMMARY | 2025-10-11 09:49 | XMS_ITS | Encounter Summary ---
Author Organization [facility] Address [address] [place] [address] Care Team Providers Care Plaster Lather Name Role Phone Luis Fernando Jara MD Primary Care Provider Unavaila ble Encounter Details Date Type Department Care Team (Late st Contact Info) Description 01/21/2007 Outpatient Historical [facility] Family Medicine [address] [place] [address] Bay Stanford DO [address] [place] [address] Chronic Airway Obstruction, not Elsewhere Classified (CMS/HCC) (Primary Dx); Acute Sinusitis, Unspecified Social History Tobacco Use Types Packs/Day Years Used Date Smoking Tobacco: Never Assessed Comments Unknown Sex and Gender Information Value Date Recorded Sex Assigned at Not on file Legal Sex Female 4:40 AM MANAGER INTERN Gender Identity Not on file Sexual Orientation Not on file documented as of this encounter Plan of Treatment Not on file documented as of this encounter Visit Diagnoses Diagnosis Chronic airway obstruction, not elsewhere classified (CMS/HCC)- Primary Chronic airway obstruction, not elsewhere classified Acute sinusitis, unspecified documented in this encounter Care Teams Plaster Lather Relationship Specialty Start Date End Date Luis Fernando Jara MD PCP - General Family Practice 11/28/11 03/31/18 documented as of this encounter
--- OUTSIDE RECORDS SUMMARY | 2025-10-11 09:49 | XMS_ITS | Encounter Summary ---
Author Organization [facility] Address [address] [place] [address] Care Team Providers Care Traveling Missionary Name Role Phone Luis Fernando Jara MD Primary Care Provider Ashlya la nena Encounter Details Date Type Department Care Team (Late st Contact Info) Description 01/14/2011 Outpatient Historical [facility] [address] [place] [address] Bay Stanford, DO [address] [place] [address] Other screening mammogram (Primary Dx) Social History Tobacco Use Types [...] on file Legal Sex Female 4:40 AM TRANSIT MECHANIC Gender Identity Not on file Sexual Orientation Not on file documented as of this encounter Plan of Treatment Not on file documented as of this encounter Visit Diagnoses Diagnosis Other screening mammogram- Primary documented in this encounter Care Teams Traveling Missionary Relationship Specialty Start Date End Date Luis Fernando Jara MD PCP - General Family Practice 11/28/11 03/31/18 documented as of this encounter
--- OUTSIDE RECORDS SUMMARY | 2025-10-11 09:49 | XMS_ITS | Encounter Summary ---
Author Organization [facility] Address [address] [place] [address] Care Team Providers Care Medical Referral Coordinator Name Role Phone Luis Fernando Jara MD Primary Care Provider Pamela deutsch Encounter Details Date Type Department Care Team (Latest Contact Info) Description 07/17/2006 Outpatient Historical [facility] Rheumatology- Mendez Дмитрий [place] [address] [place] [address] Arron Rey DO [address] [facility] [address] [place] [address] Rheumatism, Unspecified and Fibrositis (Primary Dx); Other and Unspecified Nonspecific Immunological Findings; Pain in Thoracic Spine; Sicca Syndrome Social History Tobacco Use Types Packs/Day Years Used Date Smoking Tobacco: Never Assessed Comments Unknown Sex and Gender Information Value Date Recorded Sex Assigned at Not on file Legal Sex Female 4:40 AM PUMPING STATION SUPERVISOR Gender Identity Not on file Sexual Orientation Not on file documented as of this encounter Plan of Treatment Not on file documented as of this encounter Visit Diagnoses Diagnosis Rheumatism, unspecified and fibrositis- Primary Other and unspecified nonspecific immunological findings Pain in thoracic spine Sicca syndrome documented in this encounter Care Teams Medical Referral Coordinator Relationship Specialty Start Date End Date Luis Fernando Jara MD PCP - General Family Practice 11/28/11 03/31/18 documented as of this encounter
--- OUTSIDE RECORDS SUMMARY | 2025-10-11 09:49 | XMS_ITS | Encounter Summary ---
Author Organization [facility] Address [address] [place] [address] Care Team Providers Care Heatset Winder Operator Name Role Phone Luis Fernando Jara MD Primary Care Provider Unavaila ble Encounter Details Date Type Department Care Team (Late st Contact Info) Description 01/29/2007 Outpatient Historical [facility] Family Medicine [address] [place] [address] Bay Stanford, [address] [place] [address] Unspecified Chest Pain (Primary Dx); Acute Bronchitis Social History Tobacco Use Types Packs/Day Years Used Date Smoking Tobacco: Never Assessed Comments Unknown Sex and Gender Information Value Date Recorded Sex Assigned at Not on file Legal Sex Female 4:40 AM UNIT MANAGER RN Gender Identity Not on file Sexual Orientation Not on file documented as of this encounter Plan of Treatment Not on file documented as of this encounter Visit Diagnoses Diagnosis Chest pain, unspecified- Primary Acute bronchitis documented in this encounter Care Teams Heatset Winder Operator Relationship Specialty Start Date End Date Luis Fernando Jara MD PCP - General Family Practice 11/28/11 03/31/18 documented as of this encounter
--- OUTSIDE RECORDS SUMMARY | 2025-10-11 09:49 | XMS_ITS | Encounter Summary ---
Author Organization [facility] Address [address] [place] [address] Care Team Providers Care Railway Patrol Officer Name Role Phone Luis Fernando Jara MD Primary Care Provider Ashlya ble Encounter Details Date Type Department Care Team (Late st Contact Info) Description 05/25/[address] [facility] Family Medicine [address] [place] [address] [place] [address] Bay Stanford DO [address] [place] [address] Unspecified Backache (Primary Dx); Other Malaise and Fatigue; Urinary Frequency; Unspecified Arthropathy, Site Unspecified Social History Tobacco Use Types Packs/Day Years Used Date Smoking Tobacco: Never Assessed Comments Unknown Sex and Gender Information Value Date Recorded Sex Assigned at Not on file Legal Sex Female 4:40 AM HOBBING MACHINE OPERATOR Gender Identity Not on file Sexual Orientation Not on file documented as of this encounter Plan of Treatment Not on file documented as of this encounter Visit Diagnoses Diagnosis Backache, unspecified- Primary Other malaise and fatigue Urinary frequency Arthropathy, unspecified, site unspecified documented in this encounter Care Teams Railway Patrol Officer Relationship Specialty Start Date End Date Luis Fernando Jara MD PCP - General Family Practice 11/28/11 03/31/18 documented as of this encounter
--- OUTSIDE RECORDS SUMMARY | 2025-10-11 09:49 | XMS_ITS | Encounter Summary ---
Author Organization [facility] Address [address] [place] [address] Care Team Providers Care Behavior Clinician Name Role Phone Luis Fernando Jara MD Primary Care Provider Unavaila ble Encounter Details Date Type Department Care Team (Late st Contact Info) Description 11/26/2007 Outpatient Historical [facility] Medicine [address] [place] [address] [place] [address] Bay Stanford, [address] [place] [address] Personal History of Other Genital System and Obstetric Disorders Social History Tobacco Use Types Packs/Day Years Used Date Smoking Tobacco: Never Assessed Comments Unknown Sex and Gender Information Value Date Recorded Sex Assigned at Not on file Legal Sex Female 4:40 AM ANIMAL COP Gender Identity Not on file Sexual Orientation Not on file documented as of this encounter Plan of Treatment Not on file documented as of this encounter Procedures Procedure Name Priority Date/Time Associated Diagnosis Comments OCCULT BLOOD GUAIAC SCREEN, 1-3 CARDS Stat 12/17/2007 10:05 AM ANIMAL COP documented in this encounter Results * OCCULT BLOOD, OUTPATIENT 1-3 CARDS (12/17/2007 10:05 AM ANIMAL COP) OCCULT BLOOD #1 NEGATIVE NEG [facility] PERFORMED IN OFFICE OCCULT BLOOD #2 NEGATIVE NEG [facility] PERFOR[facility] IN OFFICE OCCULT BLOOD #3 NEGATIVE NEG [facility] 12/17/2007 10:0 5 AM ANIMAL COP 12/17/2007 10:06 AM ANIMAL COP us [place] C Hien DO BODY FLUIDS AND STOOLS Final Res ult [facility] documented in this encounter Visit Diagnoses Diagnosis Personal history of other genital system and obstetric disorders(V13.29) Personal history of other genital system and obstetric disorders documented in this encounter Care Teams Behavior Clinician Relationship Specialty Start Date End Date Luis Fernando Jara MD PCP - General Family Practice 11/28/11 03/31/18 documented as of this encounter
--- OUTSIDE RECORDS SUMMARY | 2025-10-11 09:49 | XMS_ITS | Encounter Summary ---
Author Organization [facility] Address [address] [place] [address] Care Team Providers Care Mortician Supplies Sales Representative Name Role Phone Luis Fernando Jara MD Primary Care Provider Ashlya ble Encounter Details Date Type Department Care Team (Late st Contact Info) Description 02/08/2007 Outpatient Historical [facility] Family Medicine [address] [place] [address] [place] [address] Bay Stanford, [address] [place] [phone] Shortness of Breath (Primary Dx); Tietze's Disease Social History Tobacco Use Types Packs/Day Years Used Date Smoking Tobacco: Never Assessed Comments Unknown Sex and Gender Information Value Date Recorded Sex Assigned at Not on file Legal Sex Female 4:40 AM BENCH SCIENTIST Gender Identity Not on file Sexual Orientation Not on file documented as of this encounter Plan of Treatment Not on file documented as of this encounter Visit Diagnoses Diagnosis Shortness of breath- Primary Tietze's disease documented in this encounter Care Teams Mortician Supplies Sales Representative Relationship Specialty Start Date End Date Luis Fernando Jara MD PCP - General Family Practice 11/28/11 03/31/18 documented as of this encounter
--- OUTSIDE RECORDS SUMMARY | 2025-10-11 09:49 | XMS_ITS | Clinical Summary ---
Author Organization [facility] Address [address] [place] [phone] Care Team Providers Care End Frazer Name Role Phone Unavailable Primary Care Provider Unavailabl e Allergies Active Allergy Reactions Criticality Noted Date Comments Esomeprazole Magnesium Headache Low Lansoprazole Headache Low Medications calcium carbonate + vitamin D (CALCIUM 600 + D) 600 mg(1,500mg) -400 unit Oral Tab Take 1 Tab by mouth 2 times daily with meals. 60 Tab 11 3 Active pramipexole (MIRAPEX) 0.25 mg Oral tablet Take 2 Tabs by mouth daily at bedtime. FOR PATIENT ASSISTANCE 180 Tab 3 3 Active albuterol 90 mcg/Actuation Inhalation HFAA inhalerIndicati ons:Chronic airway obstruction, not elsewhere classified (CMS/HCC) Take 2 Puffs by inhalation every 6 hours as needed for Respiration. FOR PATIENT ASSISTANCE 54 Gram 3 3 Active fluticasone-janelle anterol (BREO ELLIPTA) 100-25 mcg/dose Disk with DeviceIndicatio ns:Chronic airway obstruction, not elsewhere classified (CMS/HCC) Take 1 Puff by inhalation daily. 1 Each 11 5 Active buPROPion (WELLBUTRIN) 100 mg tabletIndicatio ns:Tobacco dependence Take 1 Tab (100 mg) by mouth 2 times daily. 60 Tab 3 5 Active tiotropium (SPIRIVA WITH HANDIHALER) 18 mcg capsuleIndicati ons:Chronic airway obstruction, not elsewhere classified (CMS/HCC) Take 1 Cap (18 mcg) by inhalation daily FOR PATIENT ASSITANCE. 90 Cap 3 5 Active lovastatin (MEVACOR) 20 mg tablet TAKE ONE TABLET BY MOUTH ONCE DAILY WITH SUPPER 90 Tablet 1 5 Active ranitidine (ZANTAC) 300 mg tablet TAKE ONE TABLET BY MOUTH AT BEDTIME ONCE DAILY 90 Tablet 1 5 Active cyclobenzaprine (FLEXERIL) 10 mg tablet TAKE ONE TABLET BY MOUTH EVERY 12 HOURS 180 Tablet 1 6 Active Active Problems Problem Noted Date Diagnosed Date Hyperlipidemia 08/31/2014 GERD (gastroesophageal reflux disease) 4 Hiatal hernia 03/08/2007 Generalized osteoarthrosis, involving multiple s ites Chronic airway obstruction, not elsewhere classi fied Myalgia and myositis, unspecified Resolved Problems Problem Noted Date Diagnosed Date Resolved Date Diaphragmatic hernia without mention of obstruction or gangrene 11/10/2008 Immunizations Immunization Administration Dates Next Due (PNEUMOVAX 23)(50 YRS UP) PN EUMOCOCCAL POLYSACCHARIDE (PPV23) 0.5 ML, IM 02/22/2007 Influenza Vaccine Split 3+ Yrs IM 12/27/2010 Family History Medical History Relation Name Comments High Cholesterol Brother 1 Hypertension Brother 1 Healthy Brother 2 Other Brother 3 MVA Heart Disease Father Unknown Maternal Grandfather Unknown Maternal Grandmother Diabetes Mother Hypertension Mother Unknown Paternal Grandfather Unknown Paternal Grandmother Hypertension Sister 1 Other Sister 2 seizures from h ead trauma Unknown Sister 3 Healthy Son 1 Other Son 2 Brain damage an d seizures Other Son 3 accident Breast Cancer Neg Hx Relation Name Status Comments Brother 1 Alive Brother 2 Alive Brother 3 Father Maternal Grandfather Maternal Grandmother Mother Paternal Grandfather Paternal Grandmother Sister 1 Alive Sister 2 Alive Sister 3 Alive Son 1 Alive Son 2 Alive Son 3 Alive Social History Tobacco Use Types Packs/Day Years Used Date Smoking Tobacco: Every Day Cigarettes 1 44 Smokeless Tobacco: Never Tobacco Cessation:Ready to Q uit: No; Counseling Given: Yes Comments:since 15 y/o. 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 Gender Identity Not on file Sexual Orientation Not on file Occupation Industry Job Start Date Job End Date Not on file Not on file Not on file Not on file Last Filed Vital Signs Vital Sign Reading Time Taken Comments Blood Pressure 152/88 03/06/2015 1:27 PM CDT Pulse 99 03/06/2015 1:27 PM CDT Temperature 36.3 C (97.4 F) 03/06/2015 1:27 PM CDT Respiratory Rate - - Oxygen Saturation 97% 03/06/2015 1:27 PM CDT Inhaled Oxygen Concentration - - Weight 64 kg (141 lb) 03/06/2015 1:27 PM CDT Height 154.9 cm (5' 1 ) 03/06/2015 1:27 PM CDT Body Mass Index 26.64 03/06/2015 1:27 PM CDT Plan of Treatment Health Maintenance Due Date Last Done Comments DTAP/TDAP/TD VACCINES (1 - Tdap) 1970 FIT-DNA Q 3 years 02/28/1996 FIT/FOBT Q 1 year 02/28/1996 Flex Sig/CT Colonography Q 5 years 02/28/1996 ZOSTER VACCINE (1 of 2) 2001 PNEUMOCOCCAL VACCINE 50+ YEA RS (2 of 2 - PCV) 02/23/2008 02/22/2007 COLORECTAL SCREENING 11/21/2013 11/21/2003 Colorectal Cancer Screening 11/21/2013 BREAST CANCER SCREENING 12/31/2013 12/31/19 13, 01/14/2011, 01/26/2009, Additional history exists OSTEOPOROSIS SCREENING 02/28/2016 INFLUENZA VACCINE (#1) 2025 12/27/2010 RSV VACCINE (60+ or ) (1 - 1-dose 75+ series) 2026 Procedures Procedure Name Priority Date/Time Associated Diagnosis Comments MAMMO SCREEN BILAT W OR WO CAD Routine 12/31/2012 8:29 AM LIVESTOCK PRODUCER Other screening mammogram from Last 3 Months or Most Recently Relevant to Health Maintenance Results * MAMMO DIGITAL SCREEN BILAT (12/31/2012 8:29 AM LIVESTOCK PRODUCER) Anatomical Region Laterality Modality Breast Bilateral Mammography 12/31/2012 8:28 AM LIVESTOCK PRODUCER Impressions 12/31/2012 1:26 PM LIVESTOCK PRODUCER IMPRESSION: 1. No radiographic evidence of malignancy. 2. BI-RADS category one Narrative 12/31/2012 1:26 PM LIVESTOCK PRODUCER Exam: MAMMO DIGITAL SCREEN BILAT Date/Time of Exam: Dec 31, 2012 08:29:00 AM History: Other screening mammogram. Technique: Bilateral mammograms were obtained in the CC and MLO projections. This mammogram was also analyzed by the Computer Aided Detection System (CAD), [employer], Version 8.7. Comparison is to a prior study from 01/14/2011. Findings: There is no evidence of dominant mass, suspicious microcalcifications, architectural distortions or developing densities in the right or left breast. Procedure Note Kostas Macario MD - 12/31/2012 Exam: MAMMO DIGITAL SCREEN BILAT Date/Time of Exam: Dec 31, 2012 08:29:00 AM History: Other screening mammogram. Technique: Bilateral mammograms were obtained in the CC and MLO projections. This mammogram was also analyzed by the Computer Aided Detection System (CAD), R[employer] ImageChecker, Version 8.7. Comparison is to a prior study from 01/14/2011. Findings: There is no evidence of dominant mass, suspicious microcalcifications, architectural distortions or developing densities in the right or left breast. IMPRESSION IMPRESSION: 1. No radiographic evidence of malignancy. 2. BI-RADS category one us Luis Fernando Jara MD MAMMO ORDERABLES Final Result from Last 3 Months or Most Recently Relevant to Health Maintenance
--- OUTSIDE RECORDS SUMMARY | 2025-10-11 09:49 | XMS_ITS | Encounter Summary ---
Author Organization [facility] Address [address] [place] [address] Care Team Providers Care Senior Quality Manager Name Role Phone Luis Fernando Jara MD Primary Care Provider Pamela ble Encounter Details Date Type Department Care Team (Late st Contact Info) Description 02/05/2007 Outpatient [facility] [address] [place] [address] Bay Stanford, DO [address] [place] [address] [place] [address] Social History Tobacco Use Types Packs/Day Years Used Date Smoking Tobacco: Never Assessed Comments Unknown Sex and Gender Information Value Date Recorded Sex Assigned at Not on file 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 Gender Identity Not on file Sexual Orientation Not on file documented as of this encounter Plan of Treatment Not on file documented as of this encounter Procedures Procedure Name Priority Date/Time Associated Diagnosis Comments NM MYOCARD PERF IMAG SPECT SINGL Routine 02/05/2007 12:09 PM CDT documented in this encounter Results * NM MYOCARD PERF IMAG SPECT SINGL (02/05/2007 12:09 PM CDT) 02/05/2007 12:0 9 PM CDT Narrative INTERFACE SYSTEM - 02/05/2007 12:09 PM CDT Radionuclide Myocardial Perfusion SPECT Rest/Treadmill Stress Wall Motion and Ejection FractionEvaluation: Radiopharmaceutical: Tc-99m (technetium-99m) tetrofosmin Dose: 10.8 mCi (rest) / 31.5 mCi(stress)Reason for Consultation: Anterior chest pain, CAD riskRotating planar and tomographic slices demonstrate the left ventricular chamber to be within normallimits in size without transient dilation, pulmonary accumulation, or important motion. Tomographic slices demonstrate physiologic distribution of tracer throughout the myocardium withoutfixed or reversible segmental defects. Gated tomographic imaging at rest following stress injection of tracer demonstrates physiologicthickening and excursion of all segments. Left ventricular end diastolic volume is 35 mL. Leftventricular ejection fraction is 95 %. Impression: 1. Normal myocardial perfusion imaging examination demonstrating no findings suggesting significantcoronary disease. 2. Normal regional and global left ventricular systolic function with viable myocardium throughout theleft ventricle. 3. Reporting of the treadmill exercise will be provided by these supervising physician Dr. Fisher. - Dictated By: Isaias iPttman M.D. Electronically Signed By: Isaias Pittman M.D. Date Signed: 02/05/07 Procedure Note 09/29/2009 Radionuclide Myocardial Perfusion SPECT Rest/Treadmill Stress Wall Motionand Ejection FractionEvaluation: Radiopharmaceutical: Tc-99m (technetium-99m) tetrofosmin Dose: 10.8 mCi (rest) / 31.5 mCi(stress)Reason for Consultation: Anterior chest pain, CAD riskRotating planar and tomographic slicesdemonstrate the left ventricular chamber to be within normallimits in size without transient dilation,pulmonary accumulation, or important motion. Tomographic slices demonstrate physiologic distribution of tracerthroughout the myocardium withoutfixed or reversible segmental defects. Gated tomographic imaging at rest following stress injection of tracerdemonstrates physiologicthickening and excursion of all segments. Left ventricular end diastolic volume is35 mL. Leftventricular ejection fraction is 95 %. Impression: 1. Normal myocardial perfusion imaging examination demonstrating nofindings suggesting significantcoronary disease. 2. Normal regional and global left ventricular systolic function withviable myocardium throughout theleft ventricle. 3. Reporting of the treadmill exercise will be provided by thesesupervising physician Dr. Fisher. - Dictated By: Isaias Pittman M.D. Electronically Signed By: Isaias Pittman M.D. Date Signed: 02/05/07 Bay Stevens Hien DO NM ORDERABLES Final Result INTERFACE SYSTEM Refer to clinic/hospital department documented in this encounter Visit Diagnoses Not on filedocumented in this encounter Care Teams Senior Quality Manager Relationship Specialty Start Date End Date Luis Fernando Jara MD PCP - General Family Practice 11/28/11 03/31/18 documented as of this encounter
--- OUTSIDE RECORDS SUMMARY | 2025-10-11 09:49 | XMS_ITS | Clinical Summary ---
Author Organization [facility] Address [address] [place]: Epic Prelude ADT KRISTEL DURON [address] Care Team Providers Care Curatorial Assistant Name Role Phone Unavailable Primary Care Provider Unavailabl e Allergies Active Allergy Reactions Criticality Noted Date Comments Esomeprazole Magnesium Headache Low Lansoprazole Headache Low Medications cyclobenzaprine (FLEXERIL) 10 mg tablet TAKE ONE TABLET BY MOUTH EVERY 12 HOURS 180 Tablet 1 6 Active tiotropium (SPIRIVA) 18 mcg capsuleIndicati ons:Chronic airway obstruction, not elsewhere classified (CMS/HCC) Take 1 Cap (18 mcg) by inhalation daily FOR PATIENT ASSITANCE. 90 Capsule 3 5 Active fluticasone furoate-vilante roL (BREO ELLIPTA) 100-25 mcg/dose Disk with DeviceIndicatio ns:Chronic airway obstruction, not elsewhere classified (CMS/HCC) Take 1 Puff by inhalation daily. 1 Each 11 5 Active raNITIdine (ZANTAC) 300 mg tablet TAKE ONE TABLET BY MOUTH AT BEDTIME ONCE DAILY 90 Tablet 1 5 Active lovastatin (MEVACOR) 20 mg tablet TAKE ONE TABLET BY MOUTH ONCE DAILY WITH SUPPER 90 Tablet 1 5 Active buPROPion (WELLBUTRIN) 100 mg tabletIndicatio ns:Tobacco dependence Take 1 Tab (100 mg) by mouth 2 times daily. 60 Tablet 3 5 Active Active Problems Problem Noted Date Diagnosed Date Hyperlipidemia 08/31/2014 GERD (gastroesophageal reflux disease) 4 Hiatal hernia 03/08/2007 Chronic airway obstruction, not elsewhere classi fied Myalgia and myositis, unspecified Generalized osteoarthrosis, involving multiple s ites Resolved Problems Problem Noted Date Diagnosed Date Resolved Date Diaphragmatic hernia without mention of obstruction or gangrene 11/10/2008 Immunizations Immunization Administration Dates Next Due (PNEUMOVAX 23)(50 YRS UP) PN EUMOCOCCAL POLYSACCHARIDE (PPV23) 0.5 ML, IM 02/22/2007 Influenza Vaccine Split 3+ Yrs IM 12/27/2010 Family History Medical History Relation Name Comments Other Brother 1 MVA Healthy Brother 2 High Cholesterol Brother 3 Hypertension Brother 3 Heart Disease Father Unknown Maternal Grandfather Unknown Maternal Grandmother Diabetes Mother Hypertension Mother Unknown Paternal Grandfather Unknown Paternal Grandmother Unknown Sister 1 Other Sister 2 seizures from h ead trauma Hypertension Sister 3 Other Son 1 accident Other Son 2 Brain damage an d seizures Healthy Son 3 Breast Cancer Neg Hx Relation Name Status Comments Brother 1 Brother 2 Alive Brother 3 Alive Father Maternal Grandfather Maternal Grandmother Mother Paternal Grandfather Paternal Grandmother Sister 1 Alive Sister 2 Alive Sister 3 Alive Son 1 Alive Son 2 Alive Son 3 Alive Social History Tobacco Use Types Packs/Day Years Used Date Smoking Tobacco: Every Day Cigarettes Smokeless Tobacco: Never Comments:Quit smoking: since 15 y/o. 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 Female 4:30 AM GREETER Gender Identity Not on file Sexual Orientation Not on file Last Filed Vital Signs Vital Sign Reading Time Taken Comments Blood Pressure 152/88 03/06/2015 1:27 PM CDT Pulse 99 03/06/2015 1:27 PM CDT Temperature 36.3 C (97.4 F) 03/06/2015 1:27 PM CDT Respiratory Rate - - Oxygen Saturation - - Inhaled Oxygen Concentration - - Weight 64 kg (141 lb) 03/06/2015 1:27 PM CDT Height 154.9 cm (5' 1 ) 03/06/2015 1:27 PM CDT Body Mass Index 26.64 03/06/2015 1:27 PM CDT Plan of Treatment Health Maintenance Due Date Last Done Comments DTAP/TDAP/TD VACCINES (1 - Tdap) 1970 COLORECTAL SCREENING 02/28/1996 Colorectal Cancer Screening 02/28/1996 FIT-DNA Q 3 years 02/28/1996 FIT/FOBT Q 1 year 02/28/1996 Flex Sig/CT Colonography Q 5 years 02/28/1996 ZOSTER VACCINE (1 of 2) 2001 PNEUMOCOCCAL VACCINE 50+ YEA RS (2 of 2 - PCV) 02/23/2008 02/22/2007 BREAST CANCER SCREENING 12/31/2013 12/31/19 13, 01/14/2011, 01/26/2009 OSTEOPOROSIS SCREENING 02/28/2016 INFLUENZA VACCINE (#1) 2025 12/27/2010 RSV VACCINE (60+ or ) (1 - 1-dose 75+ series) 2026 Procedures Procedure Name Priority Date/Time Associated Diagnosis Comments MAMMO SCREEN BILAT W OR WO CAD Routine 12/31/2012 8:29 AM GREETER Other screening mammogram from Last 3 Months or Most Recently Relevant to Health Maintenance Results * MAMMO SCREEN BILAT W OR WO CAD (12/31/2012 8:29 AM GREETER) Anatomical Region Laterality Modality Breast Bilateral Other Impressions 01/03/2013 10:49 AM GREETER 1. No radiographic evidence of malignancy. 2. BI-RADS category one Narrative 01/03/2013 10:49 AM GREETER Exam: MAMMO DIGITAL SCREEN BILAT Date/Time of Exam: Dec 31, 2012 08:29:00 AM History: Other screening mammogram. Technique: Bilateral mammograms were obtained in the CC and MLO projections. This mammogram was also analyzed by the Computer Aided Detection System (CAD), [employer]cker, Version 8.7. Comparison is to a prior study from 01/14/2011. Findings: There is no evidence of dominant mass, suspicious microcalcifications, architectural distortions or developing densities in the right or left breast. Procedure Note Kostas Macario MD - 01/12/2023 Exam: MAMMO DIGITAL SCREEN BILAT Date/Time of Exam: Dec 31, 2012 08:29:00 AM History: Other screening mammogram. Technique: Bilateral mammograms were obtained in the CC and MLO projections. This mammogram was also analyzed by the Computer Aided Detection System (CAD), [employer] ImageChecker, Version 8.7. Comparison is to a prior study from 01/14/2011. Findings: There is no evidence of dominant mass, suspicious microcalcifications, architectural distortions or developing densities in the right or left breast. IMPRESSION 1. No radiographic evidence of malignancy. 2. BI-RADS category one us Luis Fernando Jara MD MAMMO ORDERABLES Final Result from Last 3 Months or Most Recently Relevant to Health Maintenance
--- OUTSIDE RECORDS SUMMARY | 2025-10-11 09:49 | XMS_ITS | Encounter Summary ---
Author Organization [facility] Address [address] [place] [address] Care Team Providers Care Drum Cleaner Name Role Phone Luis Fernando Jara MD Primary Care Provider Unavaila ble Encounter Details Date Type Department Care Team (Late st Contact Info) Description 11/26/2007 Outpatient Historical [facility] Family Medicine [address] [place] [address] [place] [address] Bay Stanford DO [address] [place] [phone] Social History Tobacco Use Types Packs/Day Years Used Date Smoking Tobacco: Never Assessed Comments Unknown Sex and Gender Information Value Date Recorded Sex Assigned at Not on file 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
--- OUTSIDE RECORDS SUMMARY | 2025-10-11 09:49 | XMS_ITS | Encounter Summary ---
Author Organization [facility] Address [address] [place] [address] Care Team Providers Care Animal Breeder Name Role Phone Luis Fernando Jara MD Primary Care Provider Unavaila ble Encounter Details Date Type Department Care Team (Late st Contact Info) Description 02/22/2007 Outpatient Historical [facility] Pulmonology[facility] [place] [address] [place] [phone] Thom Coffman MD [address] 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
--- OUTSIDE RECORDS SUMMARY | 2025-10-11 09:49 | XMS_ITS | Encounter Summary ---
Author Organization [facility] Address [address] [place] [address] Care Team Providers Care Concrete Plant Laborer Name Role Phone Luis Fernando Jara MD Primary Care Provider Unavaila ble Encounter Details Date Type Department Care Team (Late st Contact Info) Description 01/26/2009 Outpatient Historical [facility] [address] [place] [address] Bay Stanford, DO [address] [place] [address] [place] [address] Other Screening Mammogram (Primary Dx) Social History Tobacco Use Types Packs/Day Years Used Date Smoking Tobacco: Never Assessed Comments No Sex and Gender Information Value Date Recorded Sex Assigned at Not on file Legal Sex Female 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
[2025-10-11] MEDS: methylPREDNISolone sod succ 125 mg/2 mL INJ IV (09:50)
[2025-10-11 09:58] LABS: Hematocrit 44.0 % (36-47); Hemoglobin 14.10 g/dL (11.27-16.99); Mean Corpuscular HGB Conc 32.0 g/dL (30-55); Mean Corpuscular Hemoglobin 28.7 pg (27-33); Mean Corpuscular Volume 89.4 fl (85-98); Nucleated Red Blood Cells % 0 %; Platelet Count 391 10^3/cmm (157-399); Red Blood Count 4.92 10^6/uL (3.85-5.65); White Blood Count 9.96 10^3/uL (3.29-11.43)
--- NOTE | 2025-10-11 10:01 | XR_ITS ---
WS: [id number] Exam: XR abdomen 1V* [id number] Date/Time of Exam: 10/11/2025 10:31 AM Reason For Exam: abd pain DLP: There is mild gaseous distention of both large and small bowel loops suggesting adynamic ileus. There is air in the rectal sigmoid colon. No sign of acute bowel obstruction or pneumoperitoneum. No sign of organ enlargement. Signs of prior cholecystectomy. Bony structures are intact. IMPRESSION1. Findings suggest adynamic ileus. No acute process noted.
[2025-10-11 10:13] LABS: Lactic Sepsis W/Reflex 1.5 mmol/L (0.5-2.2)
[2025-10-11 10:24] LABS: Alanine Aminotransferase 21 U/L (0-33); Albumin Level 4.4 g/dL (3.5-5.2); Alkaline Phosphatase 71 U/L (35-105); Anion Gap 14.4 (5-19); Aspartate Amino Transferase 17 U/L (0-32); Blood Urea Nitrogen 16 mg/dL (8-23); Calcium 9.1 mg/dL (8.5-10.5); Carbon Dioxide 27 mmol/L (22-29); Chloride 105 mmol/L (98-107); Creatinine Clr Calc Pharmacy 49.1385; Globulin 2.5 g/dL (1.3-4.6); Glucose 90 mg/dL (65-115); NT Pro B Type Natriuretic Pept 543 pg/mL (0-125); Osmolality Calculated 297 mOsm/kg (285-295); Potassium 3.4 mmol/L (3.5-5.1); Sodium 143 mmol/L (136-145); Total Protein 6.9 g/dL (6.6-8.7)
[2025-10-11 10:47] LABS: Respiratory Syncytial Virus Ce NEGATIVE (Negative); SARS-CoV-2 PCR NEGATIVE (Negative)
--- NOTE | 2025-10-11 12:59 | PM.HP ---
Providers/Chief Complaint Admitting Physician: Catrina Calderon Primary Care Provider: Ash Portillo MD Chief Complaint: Shortness of breath History of Present Illness Marbella Alfaro is a 75 year old female with PMH of COPD, chronic hypoxemic respiratory failure, current tobacco use, lung cancer (s/p chemoradiation), HLD, GERD, fibromyalgia Patient presented to the ED on 10/11/2025 out of concern for shortness of breath. Symptoms started 2 weeks ago. Associated symptoms include chills (no fevere), wheezing, orthopnea, mild non-productive cough, pleuritic chest discomfort, dizziness with position change and progressive abdominal distention and nausea (no vomiting). Notes intemittent episodes of constipation, last today (describes as a pellet). Denies palpitation, hemoptysis, syncope or abdominal pain. Seen by PCP 10/02/25 and prescribed 5 day course of prednisone 20 mg daily and nebulized treatment, which she notes have been minimally effective. She was seen in outpatient clinic once again on Thursday (10/09), she was prescribed a tapering prednisone course (completed 2 days from the second course). Medications include Breo and Spiriva. She has home oxygen, which she does not use routinely, however has been using 1 L at night over the past week. ED work-up reviewed ABG 10/11/25 0936 pH 7.48 pCO2 34.4 pO2 63.8 HCO3 25.8 Labs 10/11/25 0940 Infection/Inflammation LA 1.5 Hemogram WBC 9.96 RBC 4.92 PLT 391 Hbg 14.1 Hct 44 Coags D-Dimer 0.68 Chemistry Na 143 K 3.4 Cl 105 Ca 9.1 Glu 90 CO2 27 AG 14.4 BUN 16 Cr 0.8 AST 17 ALT 21 ALP 71 T.Bili 0.4 Cardiac NT-proBNP 543 Viral studies Influenza A/B (-), RSV (-), COVID (-) CXR without acute cardiopulmonary findings. XR abdomen: adynamic ileus. No sign of acute bowel obstruction or pneumoperitoneum. No acute process noted Review of Systems General: Reports: 10 or more systems reviewed and unremarkable except in HPI and below Medications/Allergies Home Medications ?Medication ?Instructions ?Recorded ?Confirmed ?Last Taken ?Type lovastatin 20 mg tablet 20 mg PO DAILY 07/09/21 10/11/25 10/11/25 History omeprazole 40 mg capsule,delayed 40 mg PO DAILY 07/09/21 10/11/25 10/11/25 History release tiotropium bromide 18 mcg capsule 1 cap inhalation DAILY 07/09/21 10/11/25 10/10/25 History with inhalation device (Spiriva with HandiHaler) dorzolamide 2 % eye drops 1 drp ophthalmic (eye) BID 04/17/25 10/11/25 10/11/25 History albuterol sulfate 2.5 mg/3 mL 2.5 mg continuous nebulization QID 10/11/25 10/11/25 10/11/25 History (0.083 %) solution for nebulization albuterol sulfate 90 mcg/actuation 1 - 2 puff inhalation .Q4-6H PRN 10/11/25 10/11/25 10/11/25 History aerosol inhaler Shortness Of Breath alendronate 70 mg tablet 70 mg PO Q7D 10/11/25 10/11/25 10/01/25 History cholecalciferol (vitamin D3) 25 25 mcg PO DAILY 10/11/25 10/11/25 10/11/25 History mcg (1,000 unit) tablet (Vitamin D3) fluticasone furoate 100 1 inh inhalation DAILY 10/11/25 10/11/25 10/11/25 History mcg-vilanterol 25 mcg/dose inhalation powder (Breo Ellipta) ketorolac 0.5 % eye drops See Rx Instructions .Route .COMPLEX 10/11/25 10/11/25 Unknown History Allergies Allergy/AdvReac Type Severity Reaction Status Date / Time No Known Allergies Allergy Verified 10/11/25 09:36 PFSH Acute PFSH: Medical History COPD (chronic obstructive pulmonary disease) Hypercholesteremia Fibromyalgia GERD (gastroesophageal reflux disease) Nicotine dependence, cigarettes, uncomplicated Overactive bladder Lung mass Surgical History Hx of tonsillectomy History of cholecystectomy History of hysterectomy H/O lumpectomy Family History Brother Cancer Lung Mother Hypertension Father Heart disease Social History Smoking and tobacco/nicotine status: current every day tobacco/nicotine user cigarettes Packs smoked per day: 1 Years cigarettes smoked: 50 Second hand smoke exposure: Yes Alcohol intake: current Alcohol intake frequency: holidays/special occasions only Substance/Drug Use: never Lives independently: Yes Household members: none Marital status: Current occupational status: retired Do you think of yourself as: Straight/Heterosexual Current gender identity: Female Vitals/I&O/Wt Last Vital Signs Temp 97.8 F 10/11/25 09:23 Pulse 72 10/11/25 11:27 Resp 18 10/11/25 09:41 BP 142/80 10/11/25 11:27 Pulse Ox 96 10/11/25 11:27 O2 Del Method Room Air 10/11/25 11:27 FiO2 21 10/11/25 09:41 Weight last 48 hrs Weight 54.431 kg Physical Exam Narrative: Constitutional: NAD. chronically ill appearing. Neuro: Awake and alert. Oriented x 3. No unilateral weakness or facial asymmetry. Head: NC/AT Eyes: PERRLA, EOMI Ears: Normal external ears. Hearing intact to normal voice. Nose: Normal external nose. No epistaxis. Throat: MMM Respiratory: Wheezing throughout. On room air. Cardiovascular: Regular. No murmur. Extremities: No edema bilaterally Gastrointestinal: Soft. NT. ND. +BS Genitourinary: No lora catheter Musculoskeletal: Moves all extremities. Skin: No bruising or open lesions Data 10/11/25 09:40 10/11/25 09:40 Other Labs: I have personally reviewed below listed labs that were done in ED on presentation. Labs 10/11/25 0940 Infection/Inflammation LA 1.5 Hemogram WBC 9.96 RBC 4.92 PLT 391 Hbg 14.1 Hct 44 Coags D-Dimer 0.68 Chemistry Na 143 K 3.4 Cl 105 Ca 9.1 Glu 90 CO2 27 AG 14.4 BUN 16 Cr 0.8 AST 17 ALT 21 ALP 71 T.Bili 0.4 Cardiac NT-proBNP 543 Viral studies Influenza A/B (-), RSV (-), COVID (-) Micro: Microbiology 10/11/25 09:53 Blood Culture - Preliminary Blood SPECIMEN COLLECTED 10/11/25 09:40 Blood Culture - Preliminary Blood SPECIMEN COLLECTED CXR: Radiologist's impression: CXR 10/11/25 Lungs are fully expanded and clear. Normal cardiomediastinal silhouette. Right-sided port ends in the lower one third of the SVC in good position. Degenerative changes of the T-spine and LEFT shoulder. Impression: 1. No acute cardiopulmonary finding. XR Abdomen: Radiologist's impression: XR Abdomen 10/11/25 There is mild gaseous distention of both large and small bowel loops suggesting adynamic ileus. There is air in the rectal sigmoid colon. No sign of acute bowel obstruction or pneumoperitoneum. No sign of organ enlargement. Signs of prior cholecystectomy. Bony structures are intact. Impression: Findings suggest adynamic ileus. No acute process noted. ABG Interpretation 1: 10/11/25 09:36 ABG pH 7.48 H ABG pCO2 34.4 L ABG pO2 63.8 L ABG HCO3 25.8 ABG O2 Saturation 95.0 ABG Base Excess 2.7 H My Interpretation: ABG 10/11/25 0936 pH 7.48 pCO2 34.4 pO2 63.8 HCO3 25.8 Respiratory alkalosis with mild hypoxemia, potentially hypoxemia during hyperventilation A&P Assessment and plan 1. Acute exacerbation of chronic obstructive airways disease: 2. Viral respiratory illness: 3. Giant cell carcinoma of lun. Adynamic ileus: Plan: # COPD with acute exacerbation # Rhino/Entero virus In the setting of viral illness pH 7.48 pCO2 34.4 pO2 63.8 HCO3 25.8 NTproBNP 543 Influenza, RSV and COVID negative Received solumedrol 125 mg in ED - CTA chest - Continue steroid, methylprednisolone 40 mg IV BID - DuoNebs Q4H (scheduled) - Budesonide 0.5 mg BID - Defer abx at this time - Continuous pulse ox - PCT, RVP RVP + entero / rhino virus # Elevated D-Dimer D-Dimer 0.68, appropriate (her age adjusted cut-off is 0.74) Not on chronic AC Immunocompromised w/ dyspnea and pleuritic CP and underlying risk factor will get CT imaging - CTA chest 10/11 2100 F/U on CTA chest results No evidence of PE. Stable post-treatment changes in the EDI. # Giant cell carcinoma, variant of non-small cell lung cancer Biopsy confirmed diagnosis 09/09/2021 s/p combined chemoradiation and mass resection # Abdominal pain # Abdominal distention XR abdomen showing adynamic ileus. No sign of acute bowel obstruction or pneumoperitoneum. No acute process noted. - Clear liquid diet - May need serial follow-up imaging # Hypokalemia K 3.4 - add-on Mg - replace with 40 mEq KCl VTE PPx: SCDs, Lovenox GI PPx: Pantoprazole 40 mg daily PDMP PDMP Reviewed: Not Reviewed Attestations Medical Necessity Statement*: Admitted under inpatient status. Given complexity of patient's presentation, co-morbid conditions, and required intensity of treatment, a hospitalization exceeding two midnights is anticipated. Coding Level of Care Code 42934 Diagnoses Acute exacerbation of chronic obstructive airways disease J44.1 Viral respiratory illness J98.8; B97.89 Giant cell carcinoma of lung C34.90 Adynamic ileus K56.0
[2025-10-11 13:08] LABS: Coronavirus 229E,HKU1,NL63,OC4 Not Detected (NOT DETECT); Parainfluenza Virus Type 1 Not Detected (NOT DETECT); Parainfluenza Virus Type 2 Not Detected (NOT DETECT); Parainfluenza Virus Type 3 Not Detected (NOT DETECT); Parainfluenza Virus Type 4 Not Detected (NOT DETECT); SARS-COV-2 Not Detected (NOT DETECT)
--- NOTE | 2025-10-11 13:29 | CTR_ITS ---
PROCEDURE INFORMATION: Exam: CTA Chest With Contrast Exam date and time: 10/11/2025 4:16 PM Age: 75 years old Clinical indication: Other: SOA, pleuritic pain, h/o lung cancer TECHNIQUE: Imaging protocol: Computed tomographic angiography of the chest with contrast. Exam focused on the arteries. 3D rendering (Not supervised by radiologist): MIP and/or 3D reconstructed images were created by the technologist. Radiation optimization: All CT scans at this facility use at least one of these dose optimization techniques: automated exposure control; mA and/or kV adjustment per patient size (includes targeted exams where dose is matched to clinical indication); or iterative reconstruction. Contrast material: [id number]; Contrast volume: 100 ml; Contrast route: INTRAVENOUS (IV); COMPARISON: CT chest w con* [id number] 04/13/2025 12:19 PM RADIATION DOSE METRICS: Total DLP (mGy-cm): 199.3 FINDINGS: Tubes, catheters and devices: Right anterior chest wall port catheter with tip in the superior vena cava. Pulmonary arteries: No evidence of pulmonary embolism, though evaluation of the segmental and subsegmental pulmonary arteries is significantly limited by motion. Pulmonary arteries are normal in caliber. Aorta: Severe atherosclerotic calcification. No aortic aneurysm. No aortic dissection. Thyroid: Unremarkable. Trachea: Patent trachea and central airways. Lungs: Moderate centrilobular emphysema. Chronic scarring with architectural distortion and mild bronchiectasis in the medial left upper lobe, compatible with posttreatment change. No suspicious nodules. Scattered bilateral benign calcified granulomas measuring up to 9 mm. Pleural spaces: No pneumothorax. No pleural effusion. Heart: No cardiomegaly. No pericardial effusion. Coronary arteries: Coronary artery calcifications are present. Esophagus: Unremarkable. Mediastinal space: Unremarkable. Lymph nodes: No mediastinal, hilar, or axillary lymphadenopathy. Bones/joints: No acute fracture. No suspicious osseous lesion. Soft tissues: Unremarkable. CT/CT angio chest PE protcl [id number] IMPRESSION: 1. No evidence of pulmonary embolism, though evaluation of the segmental and subsegmental pulmonary arteries is significantly limited by motion artifact. 2. Stable posttreatment changes in the left upper lobe. COMMENTS: The presence of pulmonary emphysema on CT is an independent risk factor for lung cancer. In the absence of a history or active diagnosis of lung cancer, it is recommended that this patient with emphysema be evaluated for enrollment in a low dose CT lung cancer screening program.
[2025-10-11 15:11] LABS: Magnesium 2.4 mg/dL (1.7-2.3)
[2025-10-11 15:19] LABS: Procalcitonin 0.04 ng/mL (0-0.5)
[2025-10-11] MEDS: potassium chloride oral liq 20 mEq/15 mL UDC 40 MEQ PO (15:45)
[2025-10-11] MEDS: iohexol 350 mg/mL 500 mL Btl (per mL) IV (16:18)
[2025-10-11] MEDS: methylPREDNISolone sod succ 125 mg/2 mL INJ 40 MG IVP (21:33)
[2025-10-12] VITALS (11 sets, daily range): BP systolic 137–175; BP diastolic 63–84; PULSE 73–96; RESP 17–22; TEMP 36.6–36.9; O2SAT 92–98
[2025-10-12 05:58] LABS: Hematocrit 44.1 % (36-47); Hemoglobin 13.20 g/dL (11.27-16.99); Mean Corpuscular HGB Conc 29.9 g/dL (30-55); Mean Corpuscular Hemoglobin 29.3 pg (27-33); Mean Corpuscular Volume 97.8 fl (85-98); Nucleated Red Blood Cells % 0 %; Platelet Count 362 10^3/cmm (157-399); Red Blood Count 4.51 10^6/uL (3.85-5.65); White Blood Count 10.96 10^3/uL (3.29-11.43)
[2025-10-12 06:15] LABS: Anion Gap 14.9 (5-19); Blood Urea Nitrogen 12 mg/dL (8-23); Calcium 9.0 mg/dL (8.5-10.5); Carbon Dioxide 25 mmol/L (22-29); Chloride 104 mmol/L (98-107); Glucose 138 mg/dL (65-115); Osmolality Calculated 292 mOsm/kg (285-295); Potassium 3.9 mmol/L (3.5-5.1); Sodium 140 mmol/L (136-145)
[2025-10-12] MEDS: methylPREDNISolone sod succ 125 mg/2 mL INJ 40 MG IVP ×2 (08:21→21:09)
--- NOTE | 2025-10-12 08:50 | P.PN_ITS ---
Subjective 2 Subjective: Hospital day 1. Seen patient in follow-up COPD exacerbation in the setting of viral illness and abdominal pain. Patient reports feeling much better today compared to yesterday. Notes breathing to have improved and feeling less breathless. Tolerating clear liquid diet. Continues to note presence of abdominal distention/bloating, which has improved from prior. No nausea, vomiting or diarrhea. Medications: Medication Review Details: Her medications reviewed, include DuoNeb every 4 hours Budesonide 0.5 mg twice daily Methylprednisolone 40 mg every 12 hours Pantoprazole 40 mg daily Lovenox 40 mg SQ every 24 hours Vitals/I&O/Wt Last Vital Signs Temp 98.1 F 10/12/25 07:30 Pulse 89 10/12/25 07:43 Resp 18 10/12/25 07:43 BP 144/66 10/12/25 07:30 Pulse Ox 95 10/12/25 07:43 O2 Del Method Room Air 10/12/25 07:43 FiO2 21 10/11/25 09:41 10/11/25 10/12/25 10/12/25 22:59 06:59 14:59 Intake Total 275 / 275 Balance 275 / 275 Weight last 48 hrs Weight 54.091 kg Weight 54.068 kg Weight 54.431 kg Physical Exam 2 Narrative: Constitutional: NAD. Neuro: Awake and alert. Oriented x 3. No unilateral weakness or facial asymmetry. Head: NC/AT Eyes: PERRLA, EOMI Ears: Normal external ears. Hearing intact to normal voice. Nose: Normal external nose. No epistaxis. Throat: MMM Respiratory: Diminished troughout with wheezing posterior bases bilat. Cardiovascular: Regular. No murmur. Extremities: No edema bilaterally Gastrointestinal: Rounded. Mildly distended. Soft. + BS no signs of guarding or peritoneum. Genitourinary: No lora catheter. No CVA tenderness. Musculoskeletal: Moves all extremities. Skin: No bruising or open lesions Data 10/12/25 05:17 10/12/25 05:17 Other Labs: I have personally reviewed below listed labs that were done in ED on presentation. Labs 10/12/25 0517 Hemogram WBC 10.96 RBC 4.51 PLT 362 HGB 13.20 HCT 44.1 Chemistry Na 140 K 3.9 Cl 104 Ca 9.0 CO2 25 AG 14.9 BUN 12 Cr 0.7 eGFR Labs 10/11/25 Viral panel + entero / rhino virus Micro: Microbiology 10/11/25 09:53 Blood Culture - Preliminary Blood SPECIMEN COLLECTED 10/11/25 09:40 Blood Culture - Preliminary Blood SPECIMEN COLLECTED A&P Assessment and plan 1. Acute exacerbation of chronic obstructive airways disease: 2. Viral respiratory illness: 3. Giant cell carcinoma of lun. Adynamic ileus: Plan: # COPD with acute exacerbation # Rhino/Entero virus In the setting of viral illness Immunocompromized at baseline. 10/11 pH 7.48 pCO2 34.4 pO2 63.8 HCO3 25.8 NTproBNP 543 Influenza, RSV and COVID negative Received solumedrol 125 mg in ED. Solumedrol 40 mg BID continued. CTA chest: no pulmonary embolism. Stable post-treatment changes in EDI. RVP + entero / rhino virus - Continue steroid, methylprednisolone 40 mg IV BID - Continue DuoNebs Q4H (scheduled) - Continue Budesonide 0.5 mg BID - Defer abx at this time - Continuous pulse ox # Abdominal pain # Abdominal distention XR abdomen showing adynamic ileus. No sign of acute bowel obstruction or pneumoperitoneum. No acute process noted. - Advance diet to full liquid - Will get follow-up imaging on 10/13 # Hypokalemia 10/11 K 3.4, recevied 40 mEq KCl 10/12 K 3.9 - improved, stable # Elevated D-Dimer D-Dimer 0.68, appropriate (her age adjusted cut-off is 0.74) 10/11 CTA chest negative for pulmonary embolism. # Giant cell carcinoma, variant of non-small cell lung cancer Biopsy confirmed diagnosis 09/09/2021 s/p combined chemoradiation and mass resection 10/11 CTA chest shows stable post-treatment changes in EDI. In remission. Follows routinely with outpatient subspecialists. VTE PPx: SCDs, Lovenox GI PPx: Pantoprazole 40 mg daily PDMP PDMP Reviewed: Not Reviewed Attestations 2 Medical Necessity Statement*: Admitted under inpatient status. Given complexity of patient's presentation, co-morbid conditions, and required intensity of treatment, a hospitalization exceeding two midnights is anticipated. Coding Level of Care Code 03989 Diagnoses Acute exacerbation of chronic obstructive airways disease J44.1 Viral respiratory illness J98.8; B97.89 Giant cell carcinoma of lung C34.90 Adynamic ileus K56.0
[2025-10-13] VITALS (14 sets, daily range): BP systolic 112–164; BP diastolic 71–91; PULSE 72–92; RESP 16–24; TEMP 36.5–36.9; O2SAT 90–98
[2025-10-13] MEDS: methylPREDNISolone sod succ 125 mg/2 mL INJ 40 MG IVP ×2 (08:19→21:18)
--- NOTE | 2025-10-13 09:54 | XR_ITS ---
WS: [id number] Exam: XR abdomen 1V* [id number] Date/Time of Exam: 10/13/2025 11:01 AM Reason For Exam: ileus DLP: No bowel obstruction or pneumoperitoneum. No sign of organ enlargement. Signs of prior cholecystectomy. Previously noted adynamic ileus appears to have resolved. XR/XR abdomen 1V* [id number] IMPRESSION: 1. No acute abdominal finding.
--- NOTE | 2025-10-13 14:06 | P.PN_ITS ---
Subjective 2 Subjective: Hospital day 1. Seen patient in follow-up COPD exacerbation in the setting of viral illness and abdominal pain. Patient reports feeling much better today compared to yesterday. Notes breathing to have improved and feeling less breathless. Tolerating clear liquid diet. Continues to note presence of abdominal distention/bloating, which has improved from prior. No nausea, vomiting or diarrhea. 10/13 patient seen and examined, on room air but she continues to wheeze quite significantly. Also her abdomen is soft and nontender. Will repeat abdominal x-ray today. Medications: Medication Review Details: Her medications reviewed, include DuoNeb every 4 hours Budesonide 0.5 mg twice daily Methylprednisolone 40 mg every 12 hours Pantoprazole 40 mg daily Lovenox 40 mg SQ every 24 hours Vitals/I&O/Wt Last Vital Signs Temp 97.9 F 10/13/25 11:26 Pulse 77 10/13/25 11:46 Resp 18 10/13/25 11:46 BP 164/73 10/13/25 11:26 Pulse Ox 97 10/13/25 11:46 O2 Del Method Room Air 10/13/25 11:46 FiO2 21 10/11/25 09:41 10/12/25 10/13/25 10/13/25 22:59 06:59 14:59 Intake Total 480 / 1080 360 / 360 Balance 480 / 1080 360 / 360 Weight last 48 hrs Weight 54.885 kg Weight 54.091 kg Weight 54.068 kg Physical Exam 2 Narrative: Constitutional: NAD. Neuro: Awake and alert. Oriented x 3. No unilateral weakness or facial asymmetry. Head: NC/AT Eyes: PERRLA, EOMI Ears: Normal external ears. Hearing intact to normal voice. Nose: Normal external nose. No epistaxis. Throat: MMM Respiratory: Diminished troughout with wheezing posterior bases bilat. Cardiovascular: Regular. No murmur. Extremities: No edema bilaterally Gastrointestinal: Rounded. Mildly distended. Soft. + BS no signs of guarding or peritoneum. Genitourinary: No lora catheter. No CVA tenderness. Musculoskeletal: Moves all extremities. Skin: No bruising or open lesions Data 10/12/25 05:17 10/12/25 05:17 Micro: Microbiology 10/11/25 09:53 Blood Culture - Preliminary Blood NEGATIVE TO DATE 10/11/25 09:40 Blood Culture - Preliminary Blood NEGATIVE TO DATE A&P Assessment and plan 1. Acute exacerbation of chronic obstructive airways disease: 2. Viral respiratory illness: 3. Giant cell carcinoma of lun. Adynamic ileus: Plan: # COPD with acute exacerbation # Rhino/Entero virus In the setting of viral illness Immunocompromized at baseline. 10/11 pH 7.48 pCO2 34.4 pO2 63.8 HCO3 25.8 NTproBNP 543 Influenza, RSV and COVID negative Received solumedrol 125 mg in ED. Solumedrol 40 mg BID continued. CTA chest: no pulmonary embolism. Stable post-treatment changes in EDI. RVP + entero / rhino virus - Continue steroid, methylprednisolone 40 mg IV BID - Continue DuoNebs Q4H (scheduled) - Continue Budesonide 0.5 mg BID - Defer abx at this time - Continuous pulse ox-on room air # Abdominal pain--now resolved # Abdominal distention XR abdomen showing adynamic ileus. No sign of acute bowel obstruction or pneumoperitoneum. No acute process noted. - Advance diet to full liquid - Ordered abdominal x-ray today and does not show any thing acute, will advance diet as tolerated. # Hypokalemia 10/11 K 3.4, recevied 40 mEq KCl 10/12 K 3.9 - improved, stable # Elevated D-Dimer D-Dimer 0.68, appropriate (her age adjusted cut-off is 0.74) 10/11 CTA chest negative for pulmonary embolism. # Giant cell carcinoma, variant of non-small cell lung cancer Biopsy confirmed diagnosis 09/09/2021 s/p combined chemoradiation and mass resection 10/11 CTA chest shows stable post-treatment changes in EDI. In remission. Follows routinely with outpatient subspecialists. VTE PPx: SCDs, Lovenox GI PPx: Pantoprazole 40 mg daily PDMP PDMP Reviewed: Not Reviewed Attestations 2 Medical Necessity Statement*: Continue COPD exacerbation treatment with IV steroids and breathing treatments. Will advance diet as tolerated today. Coding Level of Care Code Acute Code for [facility] Fwd Diagnoses Acute exacerbation of chronic obstructive airways disease J44.1 Viral respiratory illness J98.8; B97.89 Giant cell carcinoma of lung C34.90 Adynamic ileus K56.0
[2025-10-14] VITALS: BP 124/76; PULSE 76; RESP 17; TEMP 36.8; O2SAT 96
[2025-10-14 03:02] VITALS: PULSE 84; RESP 17; O2SAT 95
[2025-10-14 04:00] VITALS: BP 173/94; PULSE 91; RESP 19; TEMP 36.7; O2SAT 92
[2025-10-14 04:20] LABS: Hematocrit 41.6 % (36-47); Hemoglobin 13.40 g/dL (11.27-16.99); Mean Corpuscular HGB Conc 32.2 g/dL (30-55); Mean Corpuscular Hemoglobin 29.0 pg (27-33); Mean Corpuscular Volume 90.0 fl (85-98); Nucleated Red Blood Cells % 0 %; Platelet Count 302 10^3/cmm (157-399); Red Blood Count 4.62 10^6/uL (3.85-5.65); White Blood Count 9.69 10^3/uL (3.29-11.43)
[2025-10-14 04:40] LABS: Anion Gap 14.4 (5-19); Blood Urea Nitrogen 12 mg/dL (8-23); Calcium 9.1 mg/dL (8.5-10.5); Carbon Dioxide 28 mmol/L (22-29); Chloride 101 mmol/L (98-107); Glucose 142 mg/dL (65-115); Osmolality Calculated 290 mOsm/kg (285-295); Potassium 4.4 mmol/L (3.5-5.1); Sodium 139 mmol/L (136-145)
[2025-10-14 06:00] VITALS: BMI 22.4
[2025-10-14 07:30] VITALS: PULSE 65; RESP 16; O2SAT 95
[2025-10-14 07:42] VITALS: BP 131/74; PULSE 79; RESP 18; TEMP 36.8; O2SAT 92
--- NOTE | 2025-10-14 09:36 | P.DS_ITS ---
Discharge Providers Date of Admission: 10/11/25 14:15 Date of Discharge: October 14, 2025 Attending Provider at Admission: Catrina Calderon MD Attending Provider at Discharge: Bartolo Shipley DO Consults: None Primary Care Provider: Ash Portillo MD Diagnoses at Discharge Discharge Diagnosis 1. Acute exacerbation of chronic obstructive airways disease: 2. Viral respiratory illness: 3. Giant cell carcinoma of lun. Adynamic ileus: Reason for Visit Reason for Visit: Shortness of breath Brief History: Worsening shortness of breath despite 2 recent steroid bursts. Appears that highest dose received was 20 mg. Hospital Course Hospital Course Patient was admitted to the hospital for a COPD exacerbation. She received IV steroids and nebulizers. Patient also suffered with some constipation and was found to have an ileus. However she was able to have a bowel movement both yesterday and today. Respiratory panel was negative. Possible underlying viral illness contributing to exacerbation. No antibiotics were started today she is not wearing any oxygen. She reports that she wears 1 L at home although documentation shows that she does not always wear it. She states that her breathing is back to normal, despite auditory expiratory wheezing. I will send her home on a 9-day steroid taper. She may at this time require a longer term steroid treatment. Will defer to primary and have referred to pulmonary. Physical Exam Narrative: Patient alert and oriented seen cleaning up at the sink standing. Patient reports feeling back to baseline. No acute distress Heart regular rate and rhythm normal S1-S2 without murmurs clicks gallops or rubs Lungs are diminished minimal to moderately. There is audible wheezing and expiratory wheezing in the lung tamayo. Abdomen rounded no distention normal active bowel sounds Extremities no clubbing cyanosis or edema Discharge Data Studies Completed and Pending Completed Studies During Hospitalization Category Date Time Status CTA chest [CT angio chest PE protcl [id number]] Stat Cat Scan 10/11/25 13:29 Completed XR abdomen 1V* [id number] Routine Exams 10/13/25 09:54 Completed XR abdomen 1V* [id number] Stat Exams 10/11/25 10:01 Completed XR chest 1V portable [id number] Stat Exams 10/11/25 09:28 Completed Pending at discharge Category Date Time Status BMP [Basic Metabolic Panel] AM LABS Lab 10/15/25 04:00 Ordered BMP [Basic Metabolic Panel] AM LABS Lab 10/16/25 04:00 Ordered Blood Culture Stat Lab 10/11/25 09:53 Results CBC Auto Diff [Complete Blood Count w/Auto] AM LABS Lab 10/15/25 04:00 Ordered CBC Auto Diff [Complete Blood Count w/Auto] AM LABS Lab 10/16/25 04:00 Ordered Radiology Impressions Chest X-Ray 10/11/25 09:28 IMPRESSION: 1. No acute cardiopulmonary finding. Chest CTA 10/11/25 13:29 IMPRESSION: 1. No evidence of pulmonary embolism, though evaluation of the segmental and subsegmental pulmonary arteries is significantly limited by motion artifact. 2. Stable posttreatment changes in the left upper lobe. COMMENTS: The presence of pulmonary emphysema on CT is an independent risk factor for lung cancer. In the absence of a history or active diagnosis of lung cancer, it is recommended that this patient with emphysema be evaluated for enrollment in a low dose CT lung cancer screening program. Abdomen X-Ray 10/13/25 09:54 IMPRESSION: 1. No acute abdominal finding. Laboratory Results WBC 9.69 10^3/uL (3.29-11.43) 10/14/25 03:33 RBC 4.62 10^6/uL (3.85-5.65) 10/14/25 03:33 Hgb 13.40 g/dL (11.27-16.99) 10/14/25 03:33 Hct 41.6 % (36-47) 10/14/25 03:33 MCV 90.0 fl (85-98) 10/14/25 03:33 MCH 29.0 pg (27-33) 10/14/25 03:33 MCHC 32.2 g/dL (30-55) 10/14/25 03:33 RDW 13.9 % (12.1-15.1) 10/14/25 03:33 Plt Count 302 10^3/cmm (157-399) 10/14/25 03:33 MPV 9.6 fL (7.4-10.4) 10/14/25 03:33 Neut % (Auto) 86.8 % 10/14/25 03:33 Lymph % (Auto) 10.1 % 10/14/25 03:33 Garvin % (Auto) 2.0 % 10/14/25 03:33 Eos % (Auto) 0.0 % 10/14/25 03:33 Baso % (Auto) 0.1 % 10/14/25 03:33 Neut # (Auto) 8.41 10^3/uL (1.8-7.7) H 10/14/25 03:33 Lymph # (Auto) 1.0 10^3/uL (0.8-4.8) 10/14/25 03:33 Garvin # (Auto) 0.2 10^3/uL (0.2-0.9) 10/14/25 03:33 Eos # (Auto) 0.0 10^3/uL (0.0-0.8) 10/14/25 03:33 Baso # (Auto) 0.0 10^3/uL (0.0-0.1) 10/14/25 03:33 Nucleated RBC % (auto) 0 % 10/14/25 03:33 Nucleated RBCs # 0.0 /100WBC 10/14/25 03:33 D-Dimer 0.68 ug/mLFEU (0-0.59) H 10/11/25 09:40 Specimen Type Arterial 10/11/25 09:36 Sample Site Radial, right 10/11/25 09:36 ABG pH 7.48 (7.35-7.45) H 10/11/25 09:36 ABG pCO2 34.4 mmHg (35-45) L 10/11/25 09:36 ABG pO2 63.8 mmHg (80.0-100.0) L 10/11/25 09:36 ABG PO2/FiO2 Ratio 303 10/11/25 09:36 ABG HCO3 25.8 mmol/L (22-26) 10/11/25 09:36 ABG O2 Saturation 95.0 10/11/25 09:36 ABG Base Excess 2.7 mmol/L (-2.0-2.0) H 10/11/25 09:36 Sean Test Pos 10/11/25 09:36 A-a O2 Gradient 5.6 mmHg (5-10) 10/11/25 09:36 Hematocrit 43.4 % (37-47) 10/11/25 09:36 Hgb O2 Saturation 93.4 % (95-100) L 10/11/25 09:36 Carboxyhemoglobin 1.1 %THgb (0.4-20.1) 10/11/25 09:36 Methemoglobin 0.6 % (0.4-1.5) 10/11/25 09:36 Total Hemoglobin 14.2 g/dL (12-16) 10/11/25 09:36 Sodium 144.0 mmol/L (131-143) H 10/11/25 09:36 Potassium 3.2 mmol/L (3.5-5.0) L 10/11/25 09:36 Glucose 95.0 mg/dL (70-115) 10/11/25 09:36 Ionized Calcium 1.2 mmol/L (1.1-1.4) 10/11/25 09:36 O2 Delivery Device Room air 10/11/25 09:36 FiO2 21.0 % 10/11/25 09:36 Certified [employer] Physical Educator ID [facility] 10/11/25 09:36 Sodium 139 mmol/L (136-145) 10/14/25 03:33 Potassium 4.4 mmol/L (3.5-5.1) 10/14/25 03:33 Chloride 101 mmol/L (98-107) 10/14/25 03:33 Carbon Dioxide 28 mmol/L (22-29) 10/14/25 03:33 Anion Gap 14.4 (5-19) 10/14/25 03:33 BUN 12 mg/dL (8-23) 10/14/25 03:33 Creatinine 0.8 mg/dL (0.5-0.9) 10/14/25 03:33 GFR Calculation Not Reportable 10/14/25 03:33 Glucose 142 mg/dL (65-115) H 10/14/25 03:33 Calculated Osmolality 290 mOsm/kg (285-295) 10/14/25 03:33 Lactic Acid 1.5 mmol/L (0.5-2.2) 10/11/25 09:40 Calcium 9.1 mg/dL (8.5-10.5) 10/14/25 03:33 Magnesium 2.4 mg/dL (1.7-2.3) H 10/11/25 09:40 Total Bilirubin 0.4 mg/dL (0.15-1.2) 10/11/25 09:40 AST 17 U/L (0-32) 10/11/25 09:40 ALT 21 U/L (0-33) 10/11/25 09:40 Alkaline Phosphatase 71 U/L (35-105) 10/11/25 09:40 NT-Pro-B Natriuret Pep 543 pg/mL (0-125) H 10/11/25 09:40 Total Protein 6.9 g/dL (6.6-8.7) 10/11/25 09:40 Albumin 4.4 g/dL (3.5-5.2) 10/11/25 09:40 Globulin 2.5 g/dL (1.3-4.6) 10/11/25 09:40 Procalcitonin 0.04 ng/mL (0-0.5) 10/11/25 09:40 Adenovirus (PCR) Not detected (NOT DETECT) 10/11/25 11:00 C. pneumoniae DNA (PCR) Not detected (NOT DETECT) 10/11/25 11:00 Coronavirus 229E (PCR) Not detected (NOT DETECT) 10/11/25 11:00 Human Metapneumovir PCR Not detected (NOT DETECT) 10/11/25 11:00 Influenza A (H1) PCR Not detected (NOT DETECT) 10/11/25 11:00 Influenza A (PCR) Negative (Negative) 10/11/25 09:55 Influ A (H1/09) PCR Not detected (NOT DETECT) 10/11/25 11:00 Influenza A (H3) PCR Not detected (NOT DETECT) 10/11/25 11:00 Influenza Type A (PCR) Not detected (NOT DETECT) 10/11/25 11:00 Influenza Type B (PCR) Not detected (NOT DETECT) 10/11/25 11:00 M. pneumoniae (PCR) Not detected (NOT DETECT) 10/11/25 11:00 Parainfluenza 1 (PCR) Not detected (NOT DETECT) 10/11/25 11:00 Parainfluenza 2 (PCR) Not detected (NOT DETECT) 10/11/25 11:00 Parainfluenza 3 (PCR) Not detected (NOT DETECT) 10/11/25 11:00 Parainfluenza 4 (PCR) Not detected (NOT DETECT) 10/11/25 11:00 RSV (PCR) Negative (Negative) 10/11/25 09:55 RSV Type A (PCR) Not detected (NOT DETECT) 10/11/25 11:00 RSV Type B (PCR) Not detected (NOT DETECT) 10/11/25 11:00 Entero/Rhino (PCR) Detected (NOT DETECT) A 10/11/25 11:00 SARS-CoV-2 (PCR) Not detected (NOT DETECT) 10/11/25 11:00 Vitals Last Vital Signs Temp 98.2 F 10/14/25 07:42 Pulse 79 10/14/25 07:42 Resp 18 10/14/25 07:42 BP 131/74 10/14/25 07:42 Pulse Ox 92 10/14/25 07:42 O2 Del Method Room Air 10/14/25 07:42 FiO2 21 10/11/25 09:41 Discharge Plan Discharge Patient Disposition: Home Condition: Stable Prescriptions: New prednisone 20 mg tablet See Rx Instructions .ROUTE .COMPLEX Qty: 14 0RF Rx Instructions: 2 tablets every morning with meal for 3 days, then 1 tablet for 3 days then 1/2 tab for 3 days then d/c Continued lovastatin 20 mg tablet 20 mg PO DAILY Spiriva with HandiHaler 18 mcg capsule, w/inhalation device 1 cap inhalation DAILY Rx Instructions: puncture 1 cap using device; one dose = 2 inhalations omeprazole 40 mg capsule,delayed release(DR/EC) 40 mg PO DAILY dorzolamide 2 % drops 1 drp ophthalmic (eye) BID albuterol sulfate 2.5 mg /3 mL (0.083 %) solution for nebulization 2.5 mg continuous nebulization QID alendronate 70 mg tablet 70 mg PO Q7D Rx Instructions: Thursday' ketorolac 0.5 % drops See Rx Instructions .ROUTE .COMPLEX Rx Instructions: INSTILL 1 DROP INTO THE AFFECTED EYES THREE TIMES DAILY FOR 5 DAYS AFTER LASER TREATMENT. albuterol sulfate 90 mcg/actuation HFA aerosol inhaler 1 - 2 puff INHALATION .Q4-6H PRN (Reason: Shortness Of Breath) cholecalciferol (vitamin D3) [Vitamin D3] 25 mcg (1,000 unit) Tablet 25 mcg PO DAILY fluticasone furoate-vilanterol [Breo Ellipta] 100-25 mcg/dose blister with device 1 inh INHALATION DAILY Discharge Order = DC NOW: Discharge Order (Routine); Ordered 10/14/25 Ordered By: Bartolo Shipley Referrals: Gabriel Peck MD [Physician, Pulmonology] - 2 weeks Referral Note: COPD, lung cancer in remission Ash Portillo MD [Primary Care Provider, [facility]] - 4-7 days Referral Note: Hospital f/u Discharge Diet: Usual diet Discharge Activity: Increase activity as tolerated Patient Instructions: Prednisone (By mouth), COPD (Chronic Obstructive Pulmonary Disease) (DC), COPD Stoplight, Patient Portal & Lori Instructions Activity Restrictions/Additional Instructions: Complete steroid taper. Continue home regimen for COPD. I have requested referral [facility] educator [facility]. Discharge Attestations Time Spent in Discharge Care*: less than 30 min Quality Metrics Clinical Quality Measures [ No reported AMI, CVA or VTE this stay] Coding Level of Care Code Acute Code for Chg Fwd Diagnoses Acute exacerbation of chronic obstructive airways disease J44.1 Viral respiratory illness J98.8; B97.89 Giant cell carcinoma of lung C34.90 Adynamic ileus K56.0
[2025-10-14 09:44] VITALS: BP 131/74; PULSE 79; RESP 18; TEMP 36.8; O2SAT 92
== END 2025-10-14 11:22 | disposition home or self-care (01) | DRG 191 ==
LOC: ER 11:35 → MEDSURG 14:15
PROVIDERS: Internal Medicine; Nurse Practitioner Gerontology; Admitting Provider Internal Medicine; Emergency Provider Emergency Medicine; PCP Family Medicine; Visit Provider Internal Medicine
DX: J44.1 Chronic obstructive pulmonary disease with (acute) exacerbation (principal); D84.9 Immunodeficiency, unspecified; J96.11 Chronic respiratory failure with hypoxia; K56.0 Paralytic ileus; B34.8 Other viral infections of unspecified site; E87.6 Hypokalemia; F17.210 Nicotine dependence, cigarettes, uncomplicated; Z99.81 Dependence on supplemental oxygen; E78.5 Hyperlipidemia, unspecified; K21.9 Gastro-esophageal reflux disease without esophagitis; Z85.118 Personal history of other malignant neoplasm of bronchus and lung; Z92.21 Personal history of antineoplastic chemotherapy; Z92.3 Personal history of irradiation
CPT/HCPCS: 36415; 36600; 71045; 71275; 74018; 80048; 80051; 80053; 82330; 82805; 83605; 83735; 83880; 84145; 85025; 85378; 87040; 87486; 87581; 87633; 87637; 93005; 94640; 96372; 96374; 99285; J1650; J2919; J7613; J7626; J9999

== ENCOUNTER 2025-10-16 12:30 | Oncology outpatient (recurring) (ONCR) | payer MEDICARE, MEDICAID, SELFPAY | END 2025-11-08 23:59 | disposition home or self-care (01) | PROVIDERS: PCP Family Medicine; Visit Provider Internal Medicine Medical Oncology | DX: Z08 Encounter for follow-up examination after completed treatment for malignant neoplasm (principal); Z85.118 Personal history of other malignant neoplasm of bronchus and lung; Z95.828 Presence of other vascular implants and grafts; F17.210 Nicotine dependence, cigarettes, uncomplicated; J44.9 Chronic obstructive pulmonary disease, unspecified; R03.0 Elevated blood-pressure reading, without diagnosis of hypertension; Z92.3 Personal history of irradiation | CPT/HCPCS: 96523; 99214 ==

== ENCOUNTER → 2025-10-19 11:19 | Outpatient (BNVA) | payer MEDICARE, MEDICAID, SELFPAY | PROVIDERS: PCP Family Medicine; Referring Provider Internal Medicine; Visit Provider Internal Medicine | DX: J44.9 Chronic obstructive pulmonary disease, unspecified (principal); Z99.81 Dependence on supplemental oxygen; F17.210 Nicotine dependence, cigarettes, uncomplicated; Z85.118 Personal history of other malignant neoplasm of bronchus and lung | CPT/HCPCS: 99204; Q3014 ==